=== PATIENT | female | born 1965 | race African-American/Black ===

== ENCOUNTER 2017-07-20 15:27 | Emergency (ER) | payer MEDICARE, BC ==
[~2017-07-20] VITALS: Ht 149.9 cm; Wt 112.9 kg
[~2017-07-20 15:27] MED LIST: ALPR0.254 PO; AMOX1TAB61 PO; ASPI-630 PO; BACL20TA PO; LANS30TA6 PO; OXYB5TAB7 PO; vitamin d
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
[2017-07-20 16:23] VITALS: BP 100/57
[2017-07-20] MEDS ORDERED: NEOMY/BACITR/POLYMYXIN OINT PACKET. TP ONE (16:30)
[2017-07-20] MEDS ORDERED: ACETAMINOPHEN 650 MG/20.3 ML SOLUTION. PEG ONE (16:30)
[2017-07-20] MEDS ORDERED: CEPHALEXIN 250 MG/5 ML ORAL.SUSP. PEG ONE (16:30)
[2017-07-20] MEDS ORDERED: CEPH250S30 PO (16:37)
== END 2017-07-20 18:00 | disposition home or self-care (01) ==
LOC: ER 15:27
DX: M79.642 Pain in left hand (principal); Z88.5 Allergy status to narcotic agent
CPT/HCPCS: 11730; 99283

== ENCOUNTER 2018-01-14 15:21 | Emergency (ER) | payer MEDICARE, BC | END 2018-01-14 16:18 | disposition home or self-care (01) | LOC: ER 15:21 | DX: K94.23 Gastrostomy malfunction (principal); Z88.5 Allergy status to narcotic agent | CPT/HCPCS: 43760; 99284-25 ==

== ENCOUNTER 2019-03-11 13:55 | Emergency (ER) | payer MEDICARE, BC, OTHER ==
[~2019-03-11] VITALS: Ht 152.4 cm; Wt 90.3 kg
[~2019-03-11 13:55] MED LIST changes: +ACET500T68 PO; +ACET650S PO; +ASPI81TA50 PO; +AZIT250T6 PO; +CEF; +CEPH250S30 PO; +CIPR250T30 PO; +DOCU100C28 PO; +FAMO-63 PO; +GUAI-108 PO; +HYOS0.1264 PO; +IBUP-1027 PO; +IPRA0.2S5 NEB; +LACT1CAP8 PO; +LIDO700A39 TP; +LORA10TA68 PO; +NAPR-514 PO; +POLY119P19 PO; +SCOP1PAT11 TD; +SENN-80 PO; +TIZA4TAB PO; +TRAM50TA PO; +VENTOLIN HFA18 GM INH
[2019-03-11 14:23] LABS: BILIRUBIN,URINE NEGATIVE (NEG); CLARITY,URINE CLEAR; COLOR,URINE YELLOW; NITRITE,URINE NEGATIVE (NEG); PH,URINE 7.5; PROTEIN,URINE 30 mg/dL (NEG-TRACE); UROBILINOGEN,URINE 0.2 mg/dL (0.2 mg/dL)
[2019-03-11 14:29] LABS: BACTERIA,URINE MANY /HPF (0-FEW); RBC,URINE 20-40 /HPF (0-2); SQUAMOUS EPITHELIAL CELL,UR OCC /LPF; WBC,URINE 20-40 /HPF (0-4)
[2019-03-11] MEDS ORDERED: CEPH250S30 PO (15:17)
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
[2019-03-11 15:21] VITALS: BP 106/63
== END 2019-03-11 15:30 | disposition home or self-care (01) ==
LOC: ER 13:55
DX: T83.511A Infection and inflammatory reaction due to indwelling urethral catheter, initial encounter (principal); N39.0 Urinary tract infection, site not specified; Z88.5 Allergy status to narcotic agent; Y84.6 Urinary catheterization as the cause of abnormal reaction of the patient, or of later complication, without mention of misadventure at the time of the procedure; Y92.89 Other specified places as the place of occurrence of the external cause
CPT/HCPCS: 51705; 81001; 87086; 87186; 99284-25; 99285-25

== ENCOUNTER 2019-06-12 07:27 | Inpatient (IN) | payer MEDICARE, BC, OTHER ==
[~2019-06-12] VITALS: Ht 152.4 cm; Wt 91.2 kg
[~2019-06-12 07:27] MED LIST changes: +LIDO700A21 TP; -LIDO700A39 TP; -TIZA4TAB PO; +TIZA4TAB2 PO
[2019-06-12] MEDS ORDERED: IV NORMAL SALINE 1000ML BAG 1,000 ML IV SCH (07:36)
[2019-06-12] MEDS ORDERED: IPRATRPIUM/ALBUTEROL 0.5/2.5MG 3 ML NEBU. NEB ONE (07:45)
[2019-06-12] MEDS ORDERED: ONDANSETRON PF 4 MG/2 ML VIAL. IV ONE (07:45)
[2019-06-12] MEDS ORDERED: methylPREDNISolone SOD SUCC PF 125 MG/2 ML VIAL. IV ONE (07:45)
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
--- NOTE | 2019-06-12 08:24 | RAD ---
PORTABLE CHEST 1V History: Vomiting, shortness of breath Comparison: October 11, 2018 Findings: Single view of the chest is submitted. Pericardial cardiac silhouette is unchanged. There is some patchy opacity of the left lung base although likely decreased. There is likely mild atelectasis right lung base. There are somewhat low lung volumes. There is no pneumothorax or significant dependent pleural fluid. Impression: 1. There is some patchy left base opacity although probably decreased, also mild right base atelectasis. Electronically signed by: Tang Banks MD (06/12/2019 8:21 AM) [id number]
--- NOTE | 2019-06-12 08:24 | EKG ---
[facility] [address] [place] [address] Test Date: 2019-06-12 Test Time: 07:34:44 Pat Name: ROSALBA MONTERO Department: Room: Gender: F [employer]: : 1965 Requested By: DUKE PRINCE Order Number: [id number] Reading MD: Azar Joel MD Measurements Intervals [place] Rate: 96 P: 38 TN: 160 QRS: -15 QRSD: 82 T: 15 QT: 344 QTc: 435 Interpretive Statements SINUS RHYTHM VENTRICULAR PREMATURE COMPLEX(ES) LAD Electronically Signed On 06-16-2019 9:53:28 CDT by Azar Joel MD
[2019-06-12 09:14] LABS: BASO % 0 % (0-3); EOS # 0.1 x10^3/uL (0.0-0.7); EOS % 1 % (0-3); HEMATOCRIT 42.2 % (36.0-47.0); HEMOGLOBIN 14.3 g/dL (12.0-15.5); LYMPH # 1.3 x10^3/uL (1.0-4.8); LYMPH % 16 % (24-48); MEAN CORPUSCULAR HEMOGLOBIN 30 pg (25-35); MEAN CORPUSCULAR HGB CONC 34 g/dL (31-37); MEAN CORPUSCULAR VOLUME 90 fL (79-100); MONO # 0.3 x10^3/uL (0.0-1.1); MONO % 4 % (0-9); NEUT # 6.2 x10^3/uL (1.8-7.7); NEUT % 78 % (31-73); PLATELET COUNT 249 x10^3/uL (140-400); RED BLOOD COUNT 4.71 x10^6/uL (3.50-5.40); RED CELL DISTRIBUTION WIDTH 16.6 % (11.5-14.5); WHITE BLOOD COUNT 7.9 x10^3/uL (4.0-11.0)
[2019-06-12] MEDS ORDERED: VANCOMYCIN 2 GM in IV NORMAL SALINE 500ML BAG 500 ML IV ONE (09:15)
[2019-06-12] MEDS ORDERED: PIPERACILLIN/TAZOBACTAM 3.375 GM in IV NORMAL SALINE 50ML 50 ML IV ONE (09:15)
[2019-06-12 09:24] LABS: CALCIUM 9.9 mg/dL (8.5-10.1); CREATININE 0.8 mg/dL (0.6-1.0); GFR 90.4; POTASSIUM 4.2 mmol/L (3.5-5.1)
[2019-06-12 09:25] LABS: PROTHROMBIN TIME PATIENT 12.3 SEC (11.7-14.0)
[2019-06-12 09:31] LABS: ALBUMIN 3.6 g/dL (3.4-5.0); ALBUMIN/GLOBULIN RATIO 0.8 (1.0-1.7); TOTAL BILIRUBIN 0.4 mg/dL (0.2-1.0); TOTAL PROTEIN 8.4 g/dL (6.4-8.2)
[2019-06-12 09:55] LABS: BILIRUBIN,URINE NEGATIVE (NEG); CLARITY,URINE CLOUDY; COLOR,URINE YELLOW; NITRITE,URINE NEGATIVE (NEG); PROTEIN,URINE 30 mg/dL (NEG-TRACE)
[2019-06-12 10:10] LABS: BACTERIA,URINE FEW /HPF (0-FEW); WBC,URINE TNTC /HPF (0-4)
[2019-06-12] MEDS ORDERED: IV NORMAL SALINE 1000ML BAG 1,000 ML IV ONE (11:00)
[2019-06-12 11:40] VITALS: BP 135/86
--- NOTE | 2019-06-12 12:07 | NUR ---
Patient received from ER per gayle. Patient with eyes open, nonverbal, does not follow simple command to open her mouth. Rolanda GRAVES states on arrival to room patient sounded "gurgly" and she did oral suction with small amount brown tinge fluid return approx. 30 cc. Patient HOB elevated 30 degrees and patient turnded to left side after cleansing and brief change for incontinence brown BM. Oxygen on 2 liters per NC. Side rails up times two, call light at hand, bed alarm set. Unable to obtain history from patient, will obtain from [facility] record. See assessment and admission.
[2019-06-12] MEDS ORDERED: PANT40GR PEG (13:08)
[2019-06-12] MEDS ORDERED: ONDA4TAB7 PEG (13:08)
[2019-06-12] MEDS ORDERED: GUAIFENESIN PEG (13:08)
[2019-06-12] MEDS ORDERED: GLYC1.5T4 PO (13:08)
[2019-06-12] MEDS ORDERED: SULF1TAB24 PO (13:08)
[2019-06-12] MEDS ORDERED: NYST15CR2 TP (13:08)
[2019-06-12] MEDS ORDERED: OXYB5TAB7 PEG (13:08)
[2019-06-12] MEDS ORDERED: ISOSOURCE PEG (13:26)
[2019-06-12] MEDS ORDERED: prostat PEG (13:26)
--- NOTE | 2019-06-12 14:15 | NUR ---
Patient nonverbal, patient history and medications obtained from [facility] transfer records, Dr. Perez notified of completion medication reconciliation. Patient moved to P500 bed per protocol.
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
[2019-06-12] MEDS: ENOXAPARIN 40 MG/0.4 ML SYRINGE. SQ SCH (14:34)
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
[2019-06-12] MEDS: PANTOPRAZOLE IV PUSH 40 MG VIAL. IVP SCH (14:54)
--- NOTE | 2019-06-12 15:23 | RAD ---
EXAM: Abdomen, single view. HISTORY: Vomiting. COMPARISON: 10/08/2018 FINDINGS: A frontal view of the abdomen is obtained. There is a gastrostomy tube overlying the left upper quadrant. There is gas and stool within the colon. There are prominent air-filled small bowel within the abdomen. No transition point is seen. There is a suspected calcified uterine fibroid or vascular calcification within the left hemipelvis. There is thoracolumbar scoliosis and degenerative change at the lower lumbar levels. IMPRESSION: Prominent air-filled small bowel, without a clear transition point to suggest obstruction. There is also gas and stool within the colon and rectal vault. Electronically signed by: Jane Curry MD (06/12/2019 3:20 PM) [facility]
[2019-06-12] MEDS ORDERED: ONDANSETRON PF 4 MG/2 ML VIAL. IV PRN (15:30)
[2019-06-12] MEDS ORDERED: PROCHLORPERAZINE 10 MG/2 ML VIAL. IV PRN (15:30)
--- NOTE | 2019-06-12 15:33 | NUR ---
This nurse was walking by pts room and heard her vomiting. Pt was cleaned up. Emesis was light brown in color and lots of mucus noted. Oral suction used. Pt positioned on her left side. Lungs sound congested. Spoke to Dr Reed and Dr Perez. Received orders for Compazine and Zofran as needed. Compazine given IV. Update given to staff nurse.
--- NOTE | 2019-06-12 15:35 | NUR ---
Patient with emesis while this RN was at lunch. Rocio GRAVES responded and suctioned patient, states clear fluid with small amount brown tinge, turned patient to side. HOB elevated 45 degrees and Rocio GRAVES notified Dr. Reed and Dr. Perez of episode. See orders. Continue cares and monitor.
[2019-06-12 15:36] VITALS: BP 125/77
[2019-06-12] MEDS ORDERED: PIP/TAZO PER PHARMACY MC PRN (17:15)
--- NOTE | 2019-06-12 17:32 | NUR ---
D/W Dr. Perez no further IVF after this order, no IV antibiotics, patient temp. 99.2 axillary. See nursing communication and orders.
[2019-06-12] MEDS: PIPERACILLIN/TAZOBACTAM 4.5 GM in IV NORMAL SALINE 100ML 100 ML IV SCH ×2 (17:52→23:23)
[2019-06-12 19:44] VITALS: BP 129/84
[2019-06-12] MEDS: AMINO AC 3%/ELECTROLYTE/GLYCER 1,000 ML IV SCH (23:25)
[2019-06-12 23:59] VITALS: BP 133/92
[2019-06-13 04:32] LABS: HEMATOCRIT 36.4 % (36.0-47.0); HEMOGLOBIN 11.8 g/dL (12.0-15.5); RED BLOOD COUNT 3.97 x10^6/uL (3.50-5.40); RED CELL DISTRIBUTION WIDTH 16.9 % (11.5-14.5); WHITE BLOOD COUNT 11.3 x10^3/uL (4.0-11.0)
[2019-06-13 04:49] VITALS: BP 116/80
[2019-06-13 04:59] LABS: ALBUMIN 2.7 g/dL (3.4-5.0); ALBUMIN/GLOBULIN RATIO 0.5 (1.0-1.7); CALCIUM 8.8 mg/dL (8.5-10.1); CREATININE 0.7 mg/dL (0.6-1.0); GFR 105.5; POTASSIUM 4.3 mmol/L (3.5-5.1); TOTAL BILIRUBIN 0.6 mg/dL (0.2-1.0); TOTAL PROTEIN 7.7 g/dL (6.4-8.2)
[2019-06-13] MEDS: PIPERACILLIN/TAZOBACTAM 4.5 GM in IV NORMAL SALINE 100ML 100 ML IV SCH ×4 (06:20→23:32)
[2019-06-13 07:30] VITALS: BP 129/70
--- NOTE | 2019-06-13 08:15 | RAD ---
PORTABLE CHEST 1V History: Pneumonia Comparison: June 12, 2019 Findings: Single view of the chest is submitted. Pericardial cardiac silhouette is unchanged. There is residual left base opacity, some increased linear opacity more laterally. There is no pneumothorax. There is no significant dependent pleural fluid. Impression: 1. There is residual, somewhat increased left base opacity which may be due to atelectasis/infiltrate. Electronically signed by: Tang Banks MD (06/13/2019 8:12 AM) [id number]
[2019-06-13] MEDS: AMINO AC 3%/ELECTROLYTE/GLYCER 1,000 ML IV SCH ×2 (08:49→17:14)
[2019-06-13] MEDS: PANTOPRAZOLE IV PUSH 40 MG VIAL. IVP SCH (08:49)
--- NOTE | 2019-06-13 09:54 | PDOC ---
PULMONARY PROGRESS NOTES Subjective had more emesis yesterday Vitals Vital Signs Date Time Temp Pulse Resp B/P (MAP) Pulse Ox O2 Delivery O2 Flow Rate FiO2 06/13/19 08:00 Nasal Cannula 2.0 06/13/19 07:30 98.4 89 20 129/70 (89) 97 98.4 General: Alert, No acute distress Lungs: Other (few rhonchi) Cardiovascular: S1, S2 Abdomen: Soft, Non-tender Neuro Exam: Alert Extremities: No Edema Skin: Warm Labs Laboratory Tests Test 06/12/19 08:50 06/12/19 09:45 06/13/19 03:40 White Blood Count 7.9 x10^3/uL (4.0-11.0) 11.3 x10^3/uL (4.0-11.0) Red Blood Count 4.71 x10^6/uL (3.50-5.40) 3.97 x10^6/uL (3.50-5.40) Hemoglobin 14.3 g/dL (12.0-15.5) 11.8 g/dL (12.0-15.5) Hematocrit 42.2 % (36.0-47.0) 36.4 % (36.0-47.0) Mean Corpuscular Volume 90 fL (79-100) 92 fL (79-100) Mean Corpuscular Hemoglobin 30 pg (25-35) 30 pg (25-35) Mean Corpuscular Hemoglobin Concent 34 g/dL (31-37) 32 g/dL (31-37) Red Cell Distribution Width 16.6 % (11.5-14.5) 16.9 % (11.5-14.5) Platelet Count 249 x10^3/uL (140-400) 207 x10^3/uL (140-400) Neutrophils (%) (Auto) 78 % (31-73) Lymphocytes (%) (Auto) 16 % (24-48) Monocytes (%) (Auto) 4 % (0-9) Eosinophils (%) (Auto) 1 % (0-3) Basophils (%) (Auto) 0 % (0-3) Neutrophils # (Auto) 6.2 x10^3/uL (1.8-7.7) Lymphocytes # (Auto) 1.3 x10^3/uL (1.0-4.8) Monocytes # (Auto) 0.3 x10^3/uL (0.0-1.1) Eosinophils # (Auto) 0.1 x10^3/uL (0.0-0.7) Basophils # (Auto) 0.0 x10^3/uL (0.0-0.2) Prothrombin Time 12.3 SEC (11.7-14.0) Prothromb Time International Ratio 0.9 (0.8-1.1) Sodium Level 141 mmol/L (136-145) 142 mmol/L (136-145) Potassium Level 4.2 mmol/L (3.5-5.1) 4.3 mmol/L (3.5-5.1) Chloride Level 103 mmol/L (98-107) 108 mmol/L (98-107) Carbon Dioxide Level 25 mmol/L (21-32) 23 mmol/L (21-32) Anion Gap 13 (6-14) 11 (6-14) Blood Urea Nitrogen 19 mg/dL (7-20) 17 mg/dL (7-20) Creatinine 0.8 mg/dL (0.6-1.0) 0.7 mg/dL (0.6-1.0) Estimated GFR (Cockcroft-Gault) 90.4 105.5 BUN/Creatinine Ratio 24 (6-20) 24 (6-20) Glucose Level 96 mg/dL (70-99) 100 mg/dL (70-99) Lactic Acid Level 1.5 mmol/L (0.4-2.0) Calcium Level 9.9 mg/dL (8.5-10.1) 8.8 mg/dL (8.5-10.1) Total Bilirubin 0.4 mg/dL (0.2-1.0) 0.6 mg/dL (0.2-1.0) Aspartate Amino Transf (AST/SGOT) 23 U/L (15-37) 23 U/L (15-37) Alanine Aminotransferase (ALT/SGPT) 25 U/L (14-59) 22 U/L (14-59) Alkaline Phosphatase 96 U/L (46-116) 82 U/L (46-116) Creatine Kinase 117 U/L (26-192) Troponin I Quantitative < 0.017 ng/mL (0.000-0.055) YK-Wsn-O-Type Natriuretic Peptide 79 pg/mL (0-124) Total Protein 8.4 g/dL (6.4-8.2) 7.7 g/dL (6.4-8.2) Albumin 3.6 g/dL (3.4-5.0) 2.7 g/dL (3.4-5.0) Albumin/Globulin Ratio 0.8 (1.0-1.7) 0.5 (1.0-1.7) Lipase 94 U/L (73-393) Urine Collection Type U cath Urine Color Yellow Urine Clarity Cloudy Urine pH 8.0 Urine Specific [place] 1.015 Urine Protein 30 mg/dL (NEG-TRACE) Urine Glucose (UA) Negative mg/dL (NEG) Urine Ketones (Stick) Trace mg/dL (NEG) Urine Blood Moderate (NEG) Urine Nitrite Negative (NEG) Urine Bilirubin Negative (NEG) Urine Urobilinogen Dipstick 1.0 mg/dL (0.2 mg/dL) Urine Leukocyte Esterase Large (NEG) Urine RBC 3-5 /HPF (0-2) Urine WBC Tntc /HPF (0-4) Urine Squamous Epithelial Cells None /LPF Urine Bacteria Few /HPF (0-FEW) Laboratory Tests Test 06/13/19 03:40 White Blood Count 11.3 x10^3/uL (4.0-11.0) Red Blood Count 3.97 x10^6/uL (3.50-5.40) Hemoglobin 11.8 g/dL (12.0-15.5) Hematocrit 36.4 % (36.0-47.0) Mean Corpuscular Volume 92 fL (79-100) Mean Corpuscular Hemoglobin 30 pg (25-35) Mean Corpuscular Hemoglobin Concent 32 g/dL (31-37) Red Cell Distribution Width 16.9 % (11.5-14.5) Platelet Count 207 x10^3/uL (140-400) Sodium Level 142 mmol/L (136-145) Potassium Level 4.3 mmol/L (3.5-5.1) Chloride Level 108 mmol/L (98-107) Carbon Dioxide Level 23 mmol/L (21-32) Anion Gap 11 (6-14) Blood Urea Nitrogen 17 mg/dL (7-20) Creatinine 0.7 mg/dL (0.6-1.0) Estimated GFR (Cockcroft-Gault) 105.5 BUN/Creatinine Ratio 24 (6-20) Glucose Level 100 mg/dL (70-99) Calcium Level 8.8 mg/dL (8.5-10.1) Total Bilirubin 0.6 mg/dL (0.2-1.0) Aspartate Amino Transf (AST/SGOT) 23 U/L (15-37) Alanine Aminotransferase (ALT/SGPT) 22 U/L (14-59) Alkaline Phosphatase 82 U/L (46-116) Total Protein 7.7 g/dL (6.4-8.2) Albumin 2.7 g/dL (3.4-5.0) Albumin/Globulin Ratio 0.5 (1.0-1.7) Medications Active Scripts Medications Dose Route/Sig Max Daily Dose Days Date Category Dose Instructions [isosource 1.5] PEG 06/12/19 Reported Isosource 1.5 ml 40ml/hr via pump continuous/ flush peg with 120 ml H20 four times a day [prostat] PEG DAILY 06/12/19 Reported Zofran (Ondansetron Hcl) 4 Mg Tablet 1 Tab PEG Q6HRS PRN 06/12/19 Reported Protonix Packet (Pantoprazole Sodium) 40 Mg Granpkt.dr 20 Mg PEG DAILY 06/12/19 Reported Oxybutynin Chloride 5 Mg Tablet 5 Mg PEG BID 06/12/19 Reported Nystatin-Triamcinolone Cream (Nystatin/Triamcin) 15 Gm Cream..g. 1 Sis TP Q8H PRN 06/12/19 Reported apply to affected area topically every 8 hours as needed for yeast suprapubic ceja site and pannus [guaifenesin liquid] 20 ml Liq PEG Q12HR PRN 06/12/19 Reported 100mg per 5 ml Glycopyrrolate 1.5 Mg Tablet 1 Mg PO QID 06/12/19 Reported Bactrim Ds Tablet (Sulfamethoxazole/Trimethoprim) 1 Each Tablet 1 Tab PO BID 06/12/19 Reported started 06/06/19 Tramadol Hcl 50 Mg Tablet 50 Mg PO Q6HRS PRN 09/30/18 Reported Tizanidine Hcl 4 Mg Tablet 6 Mg PO QID 09/30/18 Reported Senna (Sennosides) 8.6 Mg Tablet 8.6 Mg PO HS 09/30/18 Reported two tablets at bedtime, hold for loose stool Ipratropium [place] 0.2 Mg/1 Ml Solution 1 Vial NEB Q4HRS PRN 09/30/18 Reported Glycolax (Polyethylene Glycol 3350) 119 Gm Powder 17 Gm PO BID 09/30/18 Reported hold for loose stool Claritin (Loratadine) 10 Mg Tablet 1 Tab PO DAILY 09/30/18 Reported Baclofen 20 Mg Tablet 1 Tab PO QID 09/30/18 Reported Aspir-Low (Aspirin) 81 Mg Tablet.dr 1 Tab PO DAILY 09/30/18 Reported Acetaminophen 500 Mg Tablet 1 Tab PO Q4HRS PRN 09/30/18 Reported Impression . 1. The patient with mild hypoxia and emesis. Likely aspiration pneumonia 2. Advanced multiple sclerosis. 3. Dysphagia, on PEG tube, probably malfunctioning.emesis Plan . 1. Continue with present oxygen to keep saturation 92% and above. 2. Broad-spectrum antibiotic was initiated. 3. Monitor for fever . followup chest x-ray with increase LLL infiltrate 4. Deep vein thrombosis prophylaxis. 5. keep NPO 6. We will follow along with you. Discussed with RN. GI has been consulted for PEG replacement. BELÉN MAURER MD Jun 13, 2019 09:53
--- NOTE | 2019-06-13 10:32 | PDOC ---
[employer] PROGRESS NOTE Chief Complaint Chief Complaint Aspiration Pneumonia Nausea/Vomiting Advanced MS Chronic PEG line History of Present Illness History of Present Illness 06/13/19 Pt seen/examined at bedside and resting comfortably PEG line appears to be old and has not been changed in a while Chart Reviewed DW RN Vitals/I&O Vitals/I&O: Vital Signs Date Time Temp Pulse Resp B/P (MAP) Pulse Ox O2 Delivery O2 Flow Rate FiO2 06/13/19 08:00 Nasal Cannula 2.0 06/13/19 07:30 98.4 89 20 129/70 (89) 97 98.4 I & O 06/12/19 06/12/19 06/13/19 15:00 23:00 07:00 Intake Total 300 ml 0 ml Output Total 400 ml 450 ml Balance 300 ml -400 ml -450 ml Physical Exam Physical Exam: VITALS: Within normal limits and are stable. GENERAL: No apparent distress. Alert and oriented. HEENT: Head is normocephalic, atraumatic, pupils were equally round and reactive to light and accommodation. NECK: Supple, no JVD, no thyromegaly was noted. LUNGS: Clear to auscultation in all lung alva without rhonchi or wheezing. HEART: RRR, S1, S2 present. Peripheral pulses intact, no obvious murmurs were noted. ABDOMEN: She has a PEG tube appears to be quite old and I am going to consult GI to replace it. EXTREMITIES: Upper extremities are contracted. NEUROLOGIC: She cannot move, she cannot talk, and she does nod. PSYCHIATRIC: Normal affect, normal mood. Stable. SKIN: No ulcerations or rashes, good skin turgor, no jaundice. VASCULAR: Good capillary refill, neurovascular bundle appears to be intact. Labs Labs: Laboratory Tests Test 06/13/19 03:40 White Blood Count 11.3 x10^3/uL (4.0-11.0) Red Blood Count 3.97 x10^6/uL (3.50-5.40) Hemoglobin 11.8 g/dL (12.0-15.5) Hematocrit 36.4 % (36.0-47.0) Mean Corpuscular Volume 92 fL (79-100) Mean Corpuscular Hemoglobin 30 pg (25-35) Mean Corpuscular Hemoglobin Concent 32 g/dL (31-37) Red Cell Distribution Width 16.9 % (11.5-14.5) Platelet Count 207 x10^3/uL (140-400) Sodium Level 142 mmol/L (136-145) Potassium Level 4.3 mmol/L (3.5-5.1) Chloride Level 108 mmol/L (98-107) Carbon Dioxide Level 23 mmol/L (21-32) Anion Gap 11 (6-14) Blood Urea Nitrogen 17 mg/dL (7-20) Creatinine 0.7 mg/dL (0.6-1.0) Estimated GFR (Cockcroft-Gault) 105.5 BUN/Creatinine Ratio 24 (6-20) Glucose Level 100 mg/dL (70-99) Calcium Level 8.8 mg/dL (8.5-10.1) Total Bilirubin 0.6 mg/dL (0.2-1.0) Aspartate Amino Transf (AST/SGOT) 23 U/L (15-37) Alanine Aminotransferase (ALT/SGPT) 22 U/L (14-59) Alkaline Phosphatase 82 U/L (46-116) Total Protein 7.7 g/dL (6.4-8.2) Albumin 2.7 g/dL (3.4-5.0) Albumin/Globulin Ratio 0.5 (1.0-1.7) Review of Systems Review of Systems: no co SOB co weakness Assessment and Plan Assessmemt and Plan Problems Medical Problems: (1) Aspiration pneumonia Status: Acute (2) Multiple sclerosis Status: Acute (3) Muscle contracture Status: Acute (4) Nausea and vomiting Status: Acute (5) UTI (urinary tract infection) due to urinary indwelling Kern catheter Status: Acute Assessment: Aspiration Pneumonia Nausea/Vomiting Advanced MS Chronic PEG line Plan: Cardiac monitoring IV Abx, PPN PRN anti-emetics DuoNeb O2 per NC DVT prophylaxis GI consult pending Comment Review of Relevant I have reviewed the following items jey (where applicable) has been applied. Medications: Current Medications Medications (Trade) Dose Ordered Sig/Jayna Route PRN Reason Start Time Stop Time Status Last Admin Dose Admin Sodium Chloride 1,000 ml @ 125 mls/hr 1X ONCE IV 06/12/19 11:00 06/12/19 18:59 DC 06/12/19 11:55 Enoxaparin Sodium (Lovenox 40mg Syringe) 40 mg Q24H SQ 06/12/19 15:00 06/12/19 14:34 Pantoprazole Sodium (PROTONIX VIAL for IV PUSH) 40 mg DAILYAC IVP 06/12/19 15:00 06/13/19 08:49 Prochlorperazine Edisylate (Compazine) 10 mg PRN Q8HRS PRN IV NAUSEA/VOMITING 06/12/19 15:30 06/12/19 15:28 Amino Acids/ Glycerin/ Electrolytes 1,000 ml @ 75 mls/hr [id number] IV 06/12/19 17:15 06/13/19 08:49 Piperacillin Sod/ Tazobactam Sod 4.5 gm/Sodium Chloride 100 ml @ 200 mls/hr Q6HRS IV 06/12/19 18:00 06/13/19 06:20 LONDON VINES III DO Jun 13, 2019 10:32
[2019-06-13 11:24] VITALS: BP 152/89
--- NOTE | 2019-06-13 11:37 | PDOC ---
Subjective: Subjective: Denies pain, indicates breathing okay, denies nausea. I asked about constipation - she laughed. Objective: Objective: Reviewed w/ nurse - no vomiting since yesterday. Vital Signs: Vital Signs Date Time Temp Pulse Resp B/P (MAP) Pulse Ox O2 Delivery O2 Flow Rate FiO2 06/13/19 11:24 98.0 95 20 152/89 (110) 93 Nasal Cannula 2.0 98.0 Labs: Laboratory Tests Test 06/13/19 03:40 White Blood Count 11.3 x10^3/uL Red Blood Count 3.97 x10^6/uL Hemoglobin 11.8 g/dL Hematocrit 36.4 % Mean Corpuscular Volume 92 fL Mean Corpuscular Hemoglobin 30 pg Mean Corpuscular Hemoglobin Concent 32 g/dL Red Cell Distribution Width 16.9 % Platelet Count 207 x10^3/uL Sodium Level 142 mmol/L Potassium Level 4.3 mmol/L Chloride Level 108 mmol/L Carbon Dioxide Level 23 mmol/L Anion Gap 11 Blood Urea Nitrogen 17 mg/dL Creatinine 0.7 mg/dL Estimated GFR (Cockcroft-Gault) 105.5 BUN/Creatinine Ratio 24 Glucose Level 100 mg/dL Calcium Level 8.8 mg/dL Total Bilirubin 0.6 mg/dL Aspartate Amino Transf (AST/SGOT) 23 U/L Alanine Aminotransferase (ALT/SGPT) 22 U/L Alkaline Phosphatase 82 U/L Total Protein 7.7 g/dL Albumin 2.7 g/dL Albumin/Globulin Ratio 0.5 BLOOD CULTURE Preliminary NO GROWTH AFTER 1 DAY Imaging: CXR 06/13 Impression: 1. There is residual, somewhat increased left base opacity which may be due to atelectasis/infiltrate. KUB 06/12 IMPRESSION: Prominent air-filled small bowel, without a clear transition point to suggest obstruction. There is also gas and stool within the colon and rectal vault. PE: GEN: NAD - looks better today LUNGS: rhonchi, NC 2L HEART: RRR ABD: BS+, soft, non-tender, PEG in place NEURO/PSYCH: awake and alert, non-verbal A/P: Vomiting - resolved? Suspected aspiration pneumonia, UTI MS w/ h/o dysphagia/PEG in place -- No vomiting overnight or this morning. ?try to feed - will review w/ Dr. Judah jay. URPERT WILSON Jun 13, 2019 11:37
[2019-06-13] MEDS: ENOXAPARIN 40 MG/0.4 ML SYRINGE. SQ SCH (12:21)
[2019-06-13 15:13] VITALS: BP 124/76
--- NOTE | 2019-06-13 15:44 | NUR ---
SW following pt for dc planning. JAKUB confirmed with Leonor at [facility], pt is LTC resident and plan of return upon dc. Will continue to follow.
[2019-06-13 19:52] VITALS: BP 137/95
[2019-06-13 22:54] VITALS: BP 170/89
[2019-06-14 03:23] VITALS: BP 120/77
[2019-06-14] MEDS: PIPERACILLIN/TAZOBACTAM 4.5 GM in IV NORMAL SALINE 100ML 100 ML IV SCH ×3 (05:15→18:07)
[2019-06-14 07:00] VITALS: BP 128/82
[2019-06-14] MEDS: PANTOPRAZOLE IV PUSH 40 MG VIAL. IVP SCH (08:05)
--- NOTE | 2019-06-14 09:02 | PDOC ---
Objective: Objective: Tmax 100.7. On PPN. No vomiting per nurse. Vital Signs: Vital Signs Date Time Temp Pulse Resp B/P (MAP) Pulse Ox O2 Delivery O2 Flow Rate FiO2 06/14/19 03:23 99.4 98 120/77 (91) 96 Nasal Cannula 2.0 99.4 06/13/19 22:54 20 Labs: BLOOD CULTURE Final SMALL GRAM POSITIVE COCCI IN CLUSTERS, IN THE ANAEROBIC BOTTLE(1 OF 4), TWO SETS DRAWN. PE: GEN: NAD LUNGS: coughing, NC HEART: midlly tachycardic ABD: soft, non-tender, PEG NEURO/PSYCH: awake and alert - attempts to speak A/P: Aspiration pneumonia, UTI, GPC bacteremia MS w/ PEG in place -- ?try tube feeds - will review w/ RUPERT Tillman Jun 14, 2019 09:02
[2019-06-14] MEDS: AMINO AC 3%/ELECTROLYTE/GLYCER 1,000 ML IV SCH ×2 (09:19→23:15)
--- NOTE | 2019-06-14 09:25 | PDOC ---
PULMONARY PROGRESS NOTES Subjective no soa Vitals Vital Signs Date Time Temp Pulse Resp B/P (MAP) Pulse Ox O2 Delivery O2 Flow Rate FiO2 06/14/19 07:00 98.8 105 18 128/82 (97) 97 Nasal Cannula 2.0 98.8 General: Alert, No acute distress Cardiovascular: S1, S2 Abdomen: Soft, Non-tender Neuro Exam: Alert Extremities: No Edema Skin: Warm Labs Laboratory Tests Test 06/12/19 09:45 06/13/19 03:40 Urine Collection Type U cath Urine Color Yellow Urine Clarity Cloudy Urine pH 8.0 Urine Specific Andrews 1.015 Urine Protein 30 mg/dL (NEG-TRACE) Urine Glucose (UA) Negative mg/dL (NEG) Urine Ketones (Stick) Trace mg/dL (NEG) Urine Blood Moderate (NEG) Urine Nitrite Negative (NEG) Urine Bilirubin Negative (NEG) Urine Urobilinogen Dipstick 1.0 mg/dL (0.2 mg/dL) Urine Leukocyte Esterase Large (NEG) Urine RBC 3-5 /HPF (0-2) Urine WBC Tntc /HPF (0-4) Urine Squamous Epithelial Cells None /LPF Urine Bacteria Few /HPF (0-FEW) White Blood Count 11.3 x10^3/uL (4.0-11.0) Red Blood Count 3.97 x10^6/uL (3.50-5.40) Hemoglobin 11.8 g/dL (12.0-15.5) Hematocrit 36.4 % (36.0-47.0) Mean Corpuscular Volume 92 fL (79-100) Mean Corpuscular Hemoglobin 30 pg (25-35) Mean Corpuscular Hemoglobin Concent 32 g/dL (31-37) Red Cell Distribution Width 16.9 % (11.5-14.5) Platelet Count 207 x10^3/uL (140-400) Sodium Level 142 mmol/L (136-145) Potassium Level 4.3 mmol/L (3.5-5.1) Chloride Level 108 mmol/L (98-107) Carbon Dioxide Level 23 mmol/L (21-32) Anion Gap 11 (6-14) Blood Urea Nitrogen 17 mg/dL (7-20) Creatinine 0.7 mg/dL (0.6-1.0) Estimated GFR (Cockcroft-Gault) 105.5 BUN/Creatinine Ratio 24 (6-20) Glucose Level 100 mg/dL (70-99) Calcium Level 8.8 mg/dL (8.5-10.1) Total Bilirubin 0.6 mg/dL (0.2-1.0) Aspartate Amino Transf (AST/SGOT) 23 U/L (15-37) Alanine Aminotransferase (ALT/SGPT) 22 U/L (14-59) Alkaline Phosphatase 82 U/L (46-116) Total Protein 7.7 g/dL (6.4-8.2) Albumin 2.7 g/dL (3.4-5.0) Albumin/Globulin Ratio 0.5 (1.0-1.7) Medications Active Scripts Medications Dose Route/Sig Max Daily Dose Days Date Category Dose Instructions [isosource 1.5] PEG 06/12/19 Reported Isosource 1.5 ml 40ml/hr via pump continuous/ flush peg with 120 ml H20 four times a day [prostat] PEG DAILY 06/12/19 Reported Zofran (Ondansetron Hcl) 4 Mg Tablet 1 Tab PEG Q6HRS PRN 06/12/19 Reported Protonix Packet (Pantoprazole Sodium) 40 Mg Granpkt.dr 20 Mg PEG DAILY 06/12/19 Reported Oxybutynin Chloride 5 Mg Tablet 5 Mg PEG BID 06/12/19 Reported Nystatin-Triamcinolone Cream (Nystatin/Triamcin) 15 Gm Cream..g. 1 Sis TP Q8H PRN 06/12/19 Reported apply to affected area topically every 8 hours as needed for yeast suprapubic ceja site and pannus [guaifenesin liquid] 20 ml Liq PEG Q12HR PRN 06/12/19 Reported 100mg per 5 ml Glycopyrrolate 1.5 Mg Tablet 1 Mg PO QID 06/12/19 Reported Bactrim Ds Tablet (Sulfamethoxazole/Trimethoprim) 1 Each Tablet 1 Tab PO BID 06/12/19 Reported started 06/06/19 Tramadol Hcl 50 Mg Tablet 50 Mg PO Q6HRS PRN 09/30/18 Reported Tizanidine Hcl 4 Mg Tablet 6 Mg PO QID 09/30/18 Reported Senna (Sennosides) 8.6 Mg Tablet 8.6 Mg PO HS 12/7/18 Reported two tablets at bedtime, hold for loose stool Ipratropium [place] 0.2 Mg/1 Ml Solution 1 Vial NEB Q4HRS PRN 09/30/18 Reported Glycolax (Polyethylene Glycol 3350) 119 Gm Powder 17 Gm PO BID 09/30/18 Reported hold for loose stool Claritin (Loratadine) 10 Mg Tablet 1 Tab PO DAILY 09/30/18 Reported Baclofen 20 Mg Tablet 1 Tab PO QID 09/30/18 Reported Aspir-Low (Aspirin) 81 Mg Tablet.dr 1 Tab PO DAILY 09/30/18 Reported Acetaminophen 500 Mg Tablet 1 Tab PO Q4HRS PRN 09/30/18 Reported Impression . 1. The patient with mild hypoxia and emesis. Likely aspiration pneumonia 2. Advanced multiple sclerosis. 3. Dysphagia, on PEG tube, probably malfunctioning.emesis Plan . 1. Continue with present oxygen to keep saturation 92% and above. 2. Broad-spectrum antibiotic 3. Monitor for fever . followup chest x-ray with increase LLL infiltrate 4. Deep vein thrombosis prophylaxis. 5. keep NPO 6. We will follow along with you. Discussed with RN. GI rec for PEG replacement. BELÉN MAURER MD Jun 14, 2019 09:25
[2019-06-14 11:00] VITALS: BP 134/99
--- NOTE | 2019-06-14 13:51 | PDOC ---
[facility] [facility] PROGRESS NOTE Chief Complaint Chief Complaint Aspiration Pneumonia Nausea/Vomiting Advanced MS Chronic PEG line History of Present Illness History of Present Illness 06/14/19 Pt seen and examined at bedside resting comfortably Pt appears at baseline PEG line still maintained and appears old and needing changed LILIYA Pulm who cleared pt for PEG change; LILIYA GI that pt is cleared for PEG change LILIYA RN 06/13/19 Pt seen/examined at bedside and resting comfortably PEG line appears to be old and has not been changed in a while Chart Reviewed DW RN Vitals/I&O Vitals/I&O: Vital Signs Date Time Temp Pulse Resp B/P (MAP) Pulse Ox O2 Delivery O2 Flow Rate FiO2 06/14/19 11:00 98.7 109 20 134/99 (111) 97 Nasal Cannula 2.0 98.7 I & O 06/13/19 06/13/19 06/14/19 15:00 23:00 07:00 Intake Total 0 ml 0 ml 1800 ml Output Total 700 ml 950 ml Balance -700 ml 0 ml 850 ml Physical Exam Physical Exam: VITALS: Within normal limits and are stable. GENERAL: No apparent distress. Alert and oriented. HEENT: Head is normocephalic, atraumatic, pupils were equally round and reactive to light and accommodation. NECK: Supple, no JVD, no thyromegaly was noted. LUNGS: Clear to auscultation in all lung alva without rhonchi or wheezing. HEART: RRR, S1, S2 present. Peripheral pulses intact, no obvious murmurs were noted. ABDOMEN: She has a PEG tube appears to be quite old and I am going to consult GI to replace it. EXTREMITIES: Upper extremities are contracted. NEUROLOGIC: She cannot move, she cannot talk, and she does nod. PSYCHIATRIC: Normal affect, normal mood. Stable. SKIN: No ulcerations or rashes, good skin turgor, no jaundice. VASCULAR: Good capillary refill, neurovascular bundle appears to be intact. General: No acute distress Heart: Normal S1 Lungs: Clear Abdomen: Normal bowel sounds, Soft, No tenderness Extremities: No clubbing, No cyanosis Skin: No rashes, No significant lesion Review of Systems Review of Systems: Denies headache Denies vision change Assessment and Plan Assessmemt and Plan Problems Medical Problems: (1) Aspiration pneumonia Status: Acute (2) Multiple sclerosis Status: Acute (3) Muscle contracture Status: Acute (4) Nausea and vomiting Status: Acute (5) UTI (urinary tract infection) due to urinary indwelling Kern catheter Status: Acute Assessment: Aspiration Pneumonia Nausea/Vomiting Advanced MS Chronic PEG line Plan: Awaiting new PEG, cleared by sub-specialties PPN Cardiac monitoring IV Abx, PRN anti-emetics DuoNeb O2 per NC DVT prophylaxis GI consult pending Discharge s/p PEG replacement Comment Review of Relevant I have reviewed the following items jey (where applicable) has been applied. LONDON VINES III DO Jun 14, 2019 13:51
--- NOTE | 2019-06-14 14:47 | NUR ---
Wound Care pt seen for wound care consultation re: multiple wounds. Pt has a small area of intertrigo on L lateral pannus, area cleaned and recommendation of Nystatin powder BID, left KRUNAL. Pt has a Stage II pressure ulcer on RLQ suprapubic site at 9:00, appears to be d/t suprapubic tubing. Area cleaned, wound dressed with Hydrofera blue ring, then covered with a foam dressing cut to fit, recommendation of changing every 3-4 days. Pt is very contracted on extremities and hands. Pt's fingers and fingernails are digging into her palms, barely able to release fingers to clean and assess palms, areas are moist and yeasty between fingers and pt has a Stage II pressure ulcer on R palm from fingernail digging into skin, area cleaned, measured and photographed. After cleaning and drying, slid a piece of dry Aquacel AG into hand to wick away moisture and for padding, also recommend Nystatin powder between fingers and into palms BID. Pt was incontinent of stool, area cleaned, buttocks areas clear, pt has healed areas on bilateral ischium. Stat lock reapplied for catheter security. Repositioned pt onto R upright side with wedge and pillows, call light in reach. POC discussed with STAR Abernathy who was at bedside throughout.
[2019-06-14 15:00] VITALS: BP 152/100
[2019-06-14] MEDS: NYSTATIN TOPICAL POWDER 15GM BOTTLE. TP SCH ×2 (16:26→20:21)
[2019-06-14] MEDS: ENOXAPARIN 40 MG/0.4 ML SYRINGE. SQ SCH (16:26)
[2019-06-14 19:36] VITALS: BP 137/84
--- NOTE | 2019-06-14 21:14 | NUR ---
CHG bath given on day shift 06/14 per STAR Abernathy. Unknown how many days CHG bath has been given. Addendum: 06/14/19 at 2116 by AMY ANGELO RN Amended: Links added.
[2019-06-14 23:01] VITALS: BP 135/77
[2019-06-15] MEDS: PIPERACILLIN/TAZOBACTAM 4.5 GM in IV NORMAL SALINE 100ML 100 ML IV SCH ×4 (00:12→18:15)
[2019-06-15 03:55] VITALS: BP 162/103
[2019-06-15] MEDS ORDERED: IV RINGERS,LACTATED 1000ML 1,000 ML IV ONE (06:45)
[2019-06-15 07:05] VITALS: BP 150/91
[2019-06-15] MEDS: NYSTATIN TOPICAL POWDER 15GM BOTTLE. TP SCH ×2 (08:19→20:26)
[2019-06-15] MEDS: PANTOPRAZOLE IV PUSH 40 MG VIAL. IVP SCH (08:19)
--- NOTE | 2019-06-15 10:46 | PDOC ---
[facility] [facility] PROGRESS NOTE Chief Complaint Chief Complaint Aspiration Pneumonia Nausea/Vomiting Advanced MS Chronic PEG line History of Present Illness History of Present Illness 06/15/19 Pt seen and examined at bedside resting comfortably Pt appears to be at baseline PEG line will be replaced at 1300 today LILIYA RN 06/14/19 Pt seen and examined at bedside resting comfortably Pt appears at baseline PEG line still maintained and appears old and needing changed LILIYA Pulm who cleared pt for PEG change; LILIYA GI that pt is cleared for PEG change LILIYA RN 06/13/19 Pt seen/examined at bedside and resting comfortably PEG line appears to be old and has not been changed in a while Chart Reviewed LILIYA RN Vitals/I&O Vitals/I&O: Vital Signs Date Time Temp Pulse Resp B/P (MAP) Pulse Ox O2 Delivery O2 Flow Rate FiO2 06/15/19 08:00 Nasal Cannula 2.0 06/15/19 07:05 98.9 98 20 150/91 (110) 96 98.9 I & O 06/14/19 06/14/19 06/15/19 14:59 22:59 06:59 Intake Total 0 ml 1528 ml Output Total 350 ml 550 ml 650 ml Balance -350 ml -550 ml 878 ml Physical Exam Physical Exam: VITALS: Within normal limits and are stable. GENERAL: No apparent distress. Alert and oriented. HEENT: Head is normocephalic, atraumatic, pupils were equally round and reactive to light and accommodation. NECK: Supple, no JVD, no thyromegaly was noted. LUNGS: Clear to auscultation in all lung alva without rhonchi or wheezing. HEART: RRR, S1, S2 present. Peripheral pulses intact, no obvious murmurs were noted. ABDOMEN: She has a PEG tube appears to be quite old and I am going to consult GI to replace it. EXTREMITIES: Upper extremities are contracted. NEUROLOGIC: She cannot move, she cannot talk, and she does nod. PSYCHIATRIC: Normal affect, normal mood. Stable. SKIN: No ulcerations or rashes, good skin turgor, no jaundice. VASCULAR: Good capillary refill, neurovascular bundle appears to be intact. General: No acute distress Heart: Normal S1 Lungs: Clear Abdomen: Normal bowel sounds, Soft, No tenderness Extremities: No clubbing, No cyanosis Skin: No rashes, No significant lesion Review of Systems Review of Systems: no co CP no co SOB Assessment and Plan Assessmemt and Plan Problems Medical Problems: (1) Aspiration pneumonia Status: Acute (2) Multiple sclerosis Status: Acute (3) Muscle contracture Status: Acute (4) Nausea and vomiting Status: Acute (5) UTI (urinary tract infection) due to urinary indwelling Kern catheter Status: Acute Assessment: Aspiration Pneumonia Nausea/Vomiting Advanced MS Chronic PEG line Plan: Awaiting new PEG line placement today PPN IV Abx PPN DVT prophylaxis Discharge if cleared by GI Comment Review of Relevant I have reviewed the following items jey (where applicable) has been applied. Medications: Current Medications Medications (Trade) Dose Ordered Sig/Jayna Route PRN Reason Start Time Stop Time Status Last Admin Dose Admin Nystatin (Nystop) 1 juni BID TP 06/14/19 15:00 06/15/19 08:19 LONDON VINES III DO Jun 15, 2019 10:46
[2019-06-15 11:32] VITALS: BP 152/99
--- NOTE | 2019-06-15 12:30 | PDOC ---
PULMONARY PROGRESS NOTES Subjective no soa Vitals Vital Signs Date Time Temp Pulse Resp B/P (MAP) Pulse Ox O2 Delivery O2 Flow Rate FiO2 06/15/19 11:32 99.0 95 20 152/99 (116) 94 Nasal Cannula 2.0 99.0 General: Alert, No acute distress Lungs: Clear Cardiovascular: S1, S2 Abdomen: Soft, Non-tender Neuro Exam: Alert Extremities: No Edema Skin: Warm Medications Active Scripts Medications Dose Route/Sig Max Daily Dose Days Date Category Dose Instructions [isosource 1.5] PEG 06/12/19 Reported Isosource 1.5 ml 40ml/hr via pump continuous/ flush peg with 120 ml H20 four times a day [prostat] PEG DAILY 06/12/19 Reported Zofran (Ondansetron Hcl) 4 Mg Tablet 1 Tab PEG Q6HRS PRN 06/12/19 Reported Protonix Packet (Pantoprazole Sodium) 40 Mg Granpkt.dr 20 Mg PEG DAILY 06/12/19 Reported Oxybutynin Chloride 5 Mg Tablet 5 Mg PEG BID 06/12/19 Reported Nystatin-Triamcinolone Cream (Nystatin/Triamcin) 15 Gm Cream..g. 1 Sis TP Q8H PRN 06/12/19 Reported apply to affected area topically every 8 hours as needed for yeast suprapubic ceja site and pannus [guaifenesin liquid] 20 ml Liq PEG Q12HR PRN 06/12/19 Reported 100mg per 5 ml Glycopyrrolate 1.5 Mg Tablet 1 Mg PO QID 06/12/19 Reported Bactrim Ds Tablet (Sulfamethoxazole/Trimethoprim) 1 Each Tablet 1 Tab PO BID 06/12/19 Reported started 06/06/19 Tramadol Hcl 50 Mg Tablet 50 Mg PO Q6HRS PRN 09/30/18 Reported Tizanidine Hcl 4 Mg Tablet 6 Mg PO QID 09/30/18 Reported Senna (Sennosides) 8.6 Mg Tablet 8.6 Mg PO HS 09/30/18 Reported two tablets at bedtime, hold for loose stool Ipratropium [place] 0.2 Mg/1 Ml Solution 1 Vial NEB Q4HRS PRN 09/30/18 Reported Glycolax (Polyethylene Glycol 3350) 119 Gm Powder 17 Gm PO BID 09/30/18 Reported hold for loose stool Claritin (Loratadine) 10 Mg Tablet 1 Tab PO DAILY 09/30/18 Reported Baclofen 20 Mg Tablet 1 Tab PO QID 09/30/18 Reported Aspir-Low (Aspirin) 81 Mg Tablet. 1 Tab PO DAILY 09/30/18 Reported Acetaminophen 500 Mg Tablet 1 Tab PO Q4HRS PRN 09/30/18 Reported Impression . 1. The patient with mild hypoxia and emesis. Likely aspiration pneumonia 2. Advanced multiple sclerosis. 3. Dysphagia, on PEG tube, probably malfunctioning. Plan . 1. Continue with present oxygen to keep saturation 92% and above. 2. Broad-spectrum antibiotic 3. Monitor for fever . followup chest x-ray with increase LLL infiltrate 4. Deep vein thrombosis prophylaxis. 5. keep NPO 6. We will follow along with you. Discussed with RN./ DR Perez. Stable for PEG replacement. BELÉN MAURER MD Jun 15, 2019 12:30
[2019-06-15] MEDS: AMINO AC 3%/ELECTROLYTE/GLYCER 1,000 ML IV SCH (12:54)
[2019-06-15] MEDS ORDERED: PROPOFOL 20 ML IV ONE (15:08)
--- NOTE | 2019-06-15 15:31 | PDOC4 ---
PROCEDURE Procedure EGD/re-PEG Indication: failing G-tube Meds: per anesthesia Findings: E--normal G--old G-tube, otherwise normal. D--normal bulb. ---old tube cut, pushed into stomach, grasped with snare and removed. 'Scope re-inserted and string inserted in old stoma, grasped with snare and pulled out mouth. New g-tube placed in standard fashion. Tati. well. IMP: Failing g-tube, replaced. REC: OK to re-start tube feedings immediately. MAGDALENA FITZPATRICK MD Jun 15, 2019 15:31
[2019-06-15] MEDS: ENOXAPARIN 40 MG/0.4 ML SYRINGE. SQ SCH (18:15)
[2019-06-15 19:15] VITALS: BP 143/90
[2019-06-15 23:38] VITALS: BP 146/88
--- NOTE | 2019-06-16 00:30 | NUR ---
This RN resumed care of the patient at this time.
[2019-06-16] MEDS: PIPERACILLIN/TAZOBACTAM 4.5 GM in IV NORMAL SALINE 100ML 100 ML IV SCH ×2 (00:39→05:55)
[2019-06-16 03:18] VITALS: BP 116/72
[2019-06-16] MEDS: PANTOPRAZOLE IV PUSH 40 MG VIAL. IVP SCH (05:57)
[2019-06-16 07:27] VITALS: BP 133/86
[2019-06-16] MEDS: NYSTATIN TOPICAL POWDER 15GM BOTTLE. TP SCH (09:30)
--- NOTE | 2019-06-16 10:36 | PDOC ---
Subjective: Subjective: Indicates new tube is okay. Objective: Vital Signs: Vital Signs Date Time Temp Pulse Resp B/P (MAP) Pulse Ox O2 Delivery O2 Flow Rate FiO2 06/16/19 07:27 97.5 87 20 133/86 (102) 96 Nasal Cannula 2.0 97.5 Labs: BLOOD CULTURE Preliminary NO GROWTH AFTER 4 DAYS PE: GEN: NAD LUNGS: NC, coughs HEART: RRR ABD: soft, non-tender, new PEG in place and feeds running, removed gauze from under bumper NEURO/PSYCH: awake/alert, non-verbal A/P: Aspiration pneumonia, UTI, ?GPC bacteremia MS s/p PEG replacement -- New PEG functioning. Can give PPI through tube and stop PPN. RUPERT WILSON Jun 16, 2019 10:36
--- NOTE | 2019-06-16 11:05 | SNU/HH DC ---
DISCHARGE ORDERS DISCHARGE INFORMATION: FINAL DIAGNOSIS Problems Medical Problems: (1) Aspiration pneumonia Status: Acute (2) Multiple sclerosis Status: Acute (3) Muscle contracture Status: Acute (4) Nausea and vomiting Status: Acute (5) UTI (urinary tract infection) due to urinary indwelling Ceja catheter Status: Acute CONDITION ON DISCHARGE: Stable CODE STATUS: Code Status: Full LONG-TERM: SNF STAY <30 DAYS: No HOSPICE: HOSPICE: No HOSPICE EVAL & TREAT: No LTAC: ADMIT TO LTAC: No POST DISCHARGE ORDERS: ACTIVITY ORDERS: Resume previous activity, Other ROM activity WEIGHT BEARING STATUS: Other, see below DIET AFTER DISCHARGE: NPO WOUND/INCISION CARE: Change dressing DISCHARGE MEDICATIONS: Home Meds Reported Medications [isosource 1.5] No Conflict Check, PEG for enteral feed Isosource 1.5 ml 40ml/hr via pump continuous/ flush peg with 120 ml H20 four times a day 06/12/19 [prostat] No Conflict Check, PEG DAILY for supplement 06/12/19 Ondansetron Hcl (ZOFRAN) 4 Mg Tablet, 1 TAB PEG Q6HRS PRN for NAUSEA, #20 TAB 06/12/19 Pantoprazole Sodium (PROTONIX PACKET) 40 Mg Granpkt.dr, 20 MG PEG DAILY for g erd, PACKET 06/12/19 Oxybutynin Chloride (OXYBUTYNIN CHLORIDE) 5 Mg Tablet, 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, TAB 06/12/19 Nystatin/Triamcin (NYSTATIN-TRIAMCINOLONE CREAM) 15 Gm Cream..g., 1 DARIAN TP Q8H PRN for ski, #15 GM 1 Refill apply to affected area topically every 8 hours as needed for yeast suprapubic ceja site and pannus 06/12/19 [guaifenesin liquid] 20 ml LIQ No Conflict Check, PEG Q12HR PRN for COUGH 100mg per 5 ml 06/12/19 Glycopyrrolate (Glycopyrrolate) 1.5 Mg Tablet, 1 MG PO QID for excessive secretions, TAB 06/12/19 Sulfamethoxazole/Trimethoprim (BACTRIM DS TABLET) 1 Each Tablet, 1 TAB PO BID for UTI, #14 TAB started 06/06/19 06/12/19 Tramadol Hcl (TRAMADOL HCL) 50 Mg Tablet, 50 MG PO Q6HRS PRN for PAIN, TAB 0 Refills 09/30/18 Tizanidine Hcl (TIZANIDINE HCL) 4 Mg Tablet, 6 MG PO QID for muscle spasm, TAB 09/30/18 Sennosides (SENNA) 8.6 Mg Tablet, 8.6 MG PO HS for conspitation, TAB two tablets at bedtime, hold for loose stool 09/30/18 Ipratropium [place] (IPRATROPIUM BROMIDE) 0.2 Mg/1 Ml Solution, 1 VIAL NEB Q4HRS PRN for SHORTNESS OF BREATH, #300 ML 5 Refills 09/30/18 Polyethylene Glycol 3350 (GLYCOLAX) 119 Gm Powder, 17 GM PO BID for constipation , #527 GM hold for loose stool 09/30/18 Loratadine (CLARITIN) 10 Mg Tablet, 1 TAB PO DAILY for allergy, #30 TAB 5 Refills 09/30/18 Baclofen (BACLOFEN) 20 Mg Tablet, 1 TAB PO QID for ms, #90 TAB 2 Refills 09/30/18 Aspirin (ASPIR-LOW) 81 Mg Tablet.dr, 1 TAB PO DAILY for ppx, #30 TAB 3 Refills 09/30/18 Acetaminophen (ACETAMINOPHEN) 500 Mg Tablet, 1 TAB PO Q4HRS PRN for FEVER > 101, #60 TAB 1 Refill 09/30/18 LONDON VINES III DO Jun 16, 2019 11:05
--- NOTE | 2019-06-16 11:07 | PDOC ---
[facility] [facility] PROGRESS NOTE Chief Complaint Chief Complaint Aspiration Pneumonia Nausea/Vomiting Advanced MS Chronic PEG line History of Present Illness History of Present Illness 06/16/19 Pt seen and examined at bedside resting comfortably Pt at baseline Replacement PEG examined LILIYA RN for plan to discharge 06/15/19 Pt seen and examined at bedside resting comfortably Pt appears to be at baseline PEG line will be replaced at 1300 today LILIYA RN 06/14/19 Pt seen and examined at bedside resting comfortably Pt appears at baseline PEG line still maintained and appears old and needing changed LILIYA Pulm who cleared pt for PEG change; LILIYA GI that pt is cleared for PEG change DW RN 06/13/19 Pt seen/examined at bedside and resting comfortably PEG line appears to be old and has not been changed in a while Chart Reviewed LILIYA RN Vitals/I&O Vitals/I&O: Vital Signs Date Time Temp Pulse Resp B/P (MAP) Pulse Ox O2 Delivery O2 Flow Rate FiO2 06/16/19 07:27 97.5 87 20 133/86 (102) 96 Nasal Cannula 2.0 97.5 I & O 06/15/19 06/15/19 06/16/19 15:00 23:00 07:00 Intake Total 0 ml 600 ml 0 ml Output Total 1550 ml Balance 0 ml -950 ml 0 ml Physical Exam Physical Exam: VITALS: Within normal limits and are stable. GENERAL: No apparent distress. Alert and oriented. HEENT: Head is normocephalic, atraumatic, pupils were equally round and reactive to light and accommodation. NECK: Supple, no JVD, no thyromegaly was noted. LUNGS: Clear to auscultation in all lung alva without rhonchi or wheezing. HEART: RRR, S1, S2 present. Peripheral pulses intact, no obvious murmurs were noted. ABDOMEN: She has a PEG tube appears to be quite old and I am going to consult GI to replace it. EXTREMITIES: Upper extremities are contracted. NEUROLOGIC: She cannot move, she cannot talk, and she does nod. PSYCHIATRIC: Normal affect, normal mood. Stable. SKIN: No ulcerations or rashes, good skin turgor, no jaundice. VASCULAR: Good capillary refill, neurovascular bundle appears to be intact. General: No acute distress Heart: Normal S1 Lungs: Clear Abdomen: Normal bowel sounds, Soft, No tenderness Extremities: No clubbing, No cyanosis Skin: No rashes, No significant lesion Review of Systems Review of Systems: co weakness no co SOB Assessment and Plan Assessmemt and Plan Problems Medical Problems: (1) Aspiration pneumonia Status: Acute (2) Multiple sclerosis Status: Acute (3) Muscle contracture Status: Acute (4) Nausea and vomiting Status: Acute (5) UTI (urinary tract infection) due to urinary indwelling Kern catheter Status: Acute Assessment: Aspiration Pneumonia Nausea/Vomiting Advanced MS Chronic PEG line Plan: Discharge to [facility] today DVT prophylaxis PT/OT Home Meds F/U with PCP Comment Review of Relevant I have reviewed the following items jey (where applicable) has been applied. LONDON VINES III DO Jun 16, 2019 11:07
[2019-06-16 11:40] VITALS: BP 124/69
--- NOTE | 2019-06-16 12:10 | PDOC ---
PULMONARY PROGRESS NOTES Subjective no soa Vitals Vital Signs Date Time Temp Pulse Resp B/P (MAP) Pulse Ox O2 Delivery O2 Flow Rate FiO2 06/16/19 11:40 98.5 89 20 124/69 (87) 96 Nasal Cannula 2.0 98.5 General: Alert, No acute distress Lungs: Clear Cardiovascular: S1, S2 Abdomen: Soft, Non-tender Neuro Exam: Alert Extremities: No Edema Skin: Warm Medications Active Scripts Medications Dose Route/Sig Max Daily Dose Days Date Category Dose Instructions [isosource 1.5] PEG 06/12/19 Reported Isosource 1.5 ml 40ml/hr via pump continuous/ flush peg with 120 ml H20 four times a day [prostat] PEG DAILY 06/12/19 Reported Zofran (Ondansetron Hcl) 4 Mg Tablet 1 Tab PEG Q6HRS PRN 06/12/19 Reported Protonix Packet (Pantoprazole Sodium) 40 Mg Granpkt.dr 20 Mg PEG DAILY 06/12/19 Reported Oxybutynin Chloride 5 Mg Tablet 5 Mg PEG BID 06/12/19 Reported Nystatin-Triamcinolone Cream (Nystatin/Triamcin) 15 Gm Cream..g. 1 Sis TP Q8H PRN 06/12/19 Reported apply to affected area topically every 8 hours as needed for yeast suprapubic ceja site and pannus [guaifenesin liquid] 20 ml Liq PEG Q12HR PRN 06/12/19 Reported 100mg per 5 ml Glycopyrrolate 1.5 Mg Tablet 1 Mg PO QID 06/12/19 Reported Bactrim Ds Tablet (Sulfamethoxazole/Trimethoprim) 1 Each Tablet 1 Tab PO BID 06/12/19 Reported started 06/06/19 Tramadol Hcl 50 Mg Tablet 50 Mg PO Q6HRS PRN 09/30/18 Reported Tizanidine Hcl 4 Mg Tablet 6 Mg PO QID 09/30/18 Reported Senna (Sennosides) 8.6 Mg Tablet 8.6 Mg PO HS 09/30/18 Reported two tablets at bedtime, hold for loose stool Ipratropium [place] 0.2 Mg/1 Ml Solution 1 Vial NEB Q4HRS PRN 09/30/18 Reported Glycolax (Polyethylene Glycol 3350) 119 Gm Powder 17 Gm PO BID 09/30/18 Reported hold for loose stool Claritin (Loratadine) 10 Mg Tablet 1 Tab PO DAILY 09/30/18 Reported Baclofen 20 Mg Tablet 1 Tab PO QID 09/30/18 Reported Aspir-Low (Aspirin) 81 Mg Tablet.dr 1 Tab PO DAILY 09/30/18 Reported Acetaminophen 500 Mg Tablet 1 Tab PO Q4HRS PRN 09/30/18 Reported Impression . 1. The patient with mild hypoxia and emesis. Likely aspiration pneumonia 2. Advanced multiple sclerosis. 3. Dysphagia, PEG tube, malfunctioning. replaced 06/15 Plan . 1. Continue with present oxygen to keep saturation 92% and above. 2. change to augmentin via PEG 3. No fever . 4. Deep vein thrombosis prophylaxis. 5. keep NPO 6. s/p PEG replacement. ok with dc to [facility] MD Jun 16, 2019 12:10
--- NOTE | 2019-06-16 13:09 | NUR ---
Orders faxed to [place] and pt will transport via stretcher transport at 1400. SW left a message to pt's brother, Gregg. Discussed with RN.
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
[2019-06-16] MEDS ORDERED: AMOXICILLIN/K CLAV 500/125MG TABLET. PO SCH (21:00)
[2019-06-17] MEDS ORDERED: LANSOPRAZOLE 30 MG TAB.RAP.DR FT SCH (07:30)
== END 2019-06-16 14:20 | disposition home or self-care (01) | DRG 393 ==
LOC: ER 07:27 → 6 SOUTH 09:01
PROVIDERS: ADMIT Internal Medicine; ATTEND Internal Medicine
PROC: 0DH63UZ Insertion of Feeding Device into Stomach, Percutaneous Approach (ICD-10-PCS; principal; 2019-06-15 15:00)
DX: K94.23 Gastrostomy malfunction (principal); J69.0 Pneumonitis due to inhalation of food and vomit; T83.511A Infection and inflammatory reaction due to indwelling urethral catheter, initial encounter; J98.11 Atelectasis; R47.01 Aphasia; R78.81 Bacteremia; N39.0 Urinary tract infection, site not specified; G35 Multiple sclerosis; K59.00 Constipation, unspecified; K80.20 Calculus of gallbladder without cholecystitis without obstruction; M62.40 Contracture of muscle, unspecified site; N31.9 Neuromuscular dysfunction of bladder, unspecified; R09.02 Hypoxemia; R13.10 Dysphagia, unspecified; Y84.6 Urinary catheterization as the cause of abnormal reaction of the patient, or of later complication, without mention of misadventure at the time of the procedure; Z82.49 Family history of ischemic heart disease and other diseases of the circulatory system; Z86.73 Personal history of transient ischemic attack (TIA), and cerebral infarction without residual deficits
CPT/HCPCS: 31720; 36415; 43246; 71045; 74018; 80053; 81001; 82550; 83605; 83690; 83880; 84484; 85025; 85027; 85610; 87040; 87086; 87186; 87205; 93005; 94640; 96361; 96365; 96368; 96375; C9113; J0780; J1650; J2405; J2543; J2704; J2930; J3370; J7030; J7040; J7120; J7620; 99285-25; G0378

== ENCOUNTER 2020-01-26 10:31 | Inpatient (IN) | payer MEDICARE, OTHER ==
[~2020-01-26] VITALS: Ht 162.6 cm; Wt 96.1 kg
[~2020-01-26 10:31] MED LIST changes: +GLYC1.5T4 PO; +GUAIFENESIN PEG; +ISOSOURCE PEG; +NYST15CR2 TP; +ONDA4TAB7 PEG; +OXYB5TAB10 PEG; +OXYB5TAB10 PO; -OXYB5TAB7 PO; +PANT40GR PEG; +SULF1TAB24 PO; +prostat PEG
[2020-01-26] MEDS ORDERED: IV NORMAL SALINE 1000ML BAG 1,380 ML IV SCH (11:05)
[2020-01-26] MEDS ORDERED: ACETAMINOPHEN 650 MG SUPP.RECT. PR ONE (11:15)
[2020-01-26] MEDS ORDERED: AZITHRMYCN 500MG IVPB FOR OMNI 250 ML IV ONE (11:15)
[2020-01-26] MEDS ORDERED: PIPERACILLIN/TAZOBACTAM 4.5 GM in IV NORMAL SALINE 100ML 100 ML IV ONE (11:15)
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
[2020-01-26 11:39] LABS: BASO # 0.1 x10^3/uL (0.0-0.2); BASO % 1 % (0-3); EOS % 0 % (0-3); HEMATOCRIT 41.7 % (36.0-47.0); HEMOGLOBIN 13.7 g/dL (12.0-15.5); LYMPH # 0.6 x10^3/uL (1.0-4.8); LYMPH % 4 % (24-48); MEAN CORPUSCULAR HEMOGLOBIN 29 pg (25-35); MEAN CORPUSCULAR HGB CONC 33 g/dL (31-37); MEAN CORPUSCULAR VOLUME 88 fL (79-100); MONO # 0.4 x10^3/uL (0.0-1.1); MONO % 3 % (0-9); NEUT # 12.6 x10^3/uL (1.8-7.7); NEUT % 92 % (31-73); PLATELET COUNT 204 x10^3/uL (140-400); RED BLOOD COUNT 4.76 x10^6/uL (3.50-5.40); RED CELL DISTRIBUTION WIDTH 18.2 % (11.5-14.5); WHITE BLOOD COUNT 13.7 x10^3/uL (4.0-11.0)
[2020-01-26 11:42] LABS: BILIRUBIN,URINE NEGATIVE (NEG); CLARITY,URINE CLEAR; COLOR,URINE AMBER; NITRITE,URINE NEGATIVE (NEG); PROTEIN,URINE 100 mg/dL (NEG-TRACE)
--- NOTE | 2020-01-26 11:42 | RAD ---
EXAM: PORTABLE CHEST 1V INDICATION: Cough.. TECHNIQUE: Portable semiupright single AP view COMPARISON: 06/25/2019 chest x-ray FINDINGS: The previous right PICC line has been removed. The heart size is normal. The great vessels appear unremarkable. No hilar mass or adenopathy is evident. Mediastinum shows normal caliber with aortic calcifications. Lungs are hypoventilatory as before and more confluent consolidation at the left lung base is evident with obscuring the left diaphragm. There is no pleural effusion or pneumothorax. There are no significant osseous abnormalities. IMPRESSION: Slightly worse left basilar pneumonia. Electronically signed by: Christy Reid MD (01/26/2020 11:39 AM) [id number]
[2020-01-26 11:55] LABS: CALCIUM 9.1 mg/dL (8.5-10.1); CREATININE 0.7 mg/dL (0.6-1.0); GFR 105.1; POTASSIUM 3.8 mmol/L (3.5-5.1)
--- NOTE | 2020-01-26 11:59 | EKG ---
[facility] [address] [place] [address] Test Date: 2020-01-26 Test Time: 10:44:23 Pat Name: ROSALBA MONTERO Department: Room: Gender: F Furniture Refinisher: : 1965 Requested By: KASH KEITH Order Number: [id number] Reading MD: Azar Joel MD Measurements Intervals Anthony Rate: 130 P: 23 WI: 162 QRS: 109 QRSD: 72 T: 4 QT: 274 QTc: 409 Interpretive Statements SINUS TACHYCARDIA NON-SPECIFIC ST/T CHANGES Electronically Signed On 01-29-2020 10:32:05 CDT by Azar Joel MD
[2020-01-26 12:00] LABS: ALBUMIN 2.9 g/dL (3.4-5.0); ALBUMIN/GLOBULIN RATIO 0.6 (1.0-1.7); TOTAL BILIRUBIN 0.4 mg/dL (0.2-1.0); TOTAL PROTEIN 8.1 g/dL (6.4-8.2)
[2020-01-26 12:01] LABS: BACTERIA,URINE 0 /HPF (0-FEW); RBC,URINE 0 /HPF (0-2); SQUAMOUS EPITHELIAL CELL,UR OCC /LPF; WBC,URINE 0 /HPF (0-4)
[2020-01-26 12:08] LABS: CREATINE KINASE 191 U/L (26-192)
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
[2020-01-26 12:52] LABS: % BANDS 43 % (0-9); % METAS 1 % (0-0); % MONOS 4 % (0-10)
[2020-01-26 12:53] LABS: % LYMPHS 6 % (24-48); % SEGS 46 % (35-66); ANISOCYTOSIS SLIGHT; PLT ESTIMATE ADEQUATE (ADEQUATE); POLYCHROMASIA SLIGHT
[2020-01-26 12:54] LABS: TOXIC VACUOLATION SLIGHT
[2020-01-26] MEDS ORDERED: ONDANSETRON PF 4 MG/2 ML VIAL. IV PRN ×3 (13:30→15:30)
[2020-01-26 13:50] VITALS: BP 126/83
[2020-01-26] MEDS ORDERED: guaiFENesin ORAL 200 MG/10 ML LIQUID. PO PRN (14:15)
[2020-01-26] MEDS ORDERED: ACETAMINOPHEN 650 MG SUPP.RECT. PR PRN ×2 (14:15→15:30)
[2020-01-26] MEDS ORDERED: 0.9 % SODIUM CHLORIDE 10 ML DISP.SYRIN. IV PRN ×2 (14:15→15:30)
[2020-01-26] MEDS ORDERED: diphenhydrAMINE 50 MG/ML VIAL IVP PRN (14:15)
[2020-01-26] MEDS ORDERED: DOCUSATE SODIUM 100 MG CAPSULE. PO PRN (14:15)
[2020-01-26] MEDS ORDERED: cloNIDine HCL 0.1 MG TABLET PO PRN (14:15)
[2020-01-26] MEDS ORDERED: SODIUM PHOSPHATES 19/7GM 133 ML ENEMA. PR PRN (15:30)
[2020-01-26] MEDS ORDERED: ENOXAPARIN 40 MG/0.4 ML SYRINGE. SQ SCH (15:30)
[2020-01-26] MEDS ORDERED: IPRATRPIUM/ALBUTEROL 0.5/2.5MG 3 ML NEBU. NEB PRN ×2 (16:00→18:00)
[2020-01-26] MEDS: ENOXAPARIN 40 MG/0.4 ML SYRINGE. SQ SCH (17:31)
[2020-01-26] MEDS ORDERED: IPRATRPIUM/ALBUTEROL 0.5/2.5MG 3 ML NEBU. NEB SCH ×2 (18:00)
[2020-01-26 19:00] VITALS: BP 144/67
[2020-01-26] MEDS: IV NORMAL SALINE 1000ML BAG 1,000 ML IV SCH (19:34)
[2020-01-26] MEDS: PIPERACILLIN/TAZOBACTAM 3.375 GM in IV NORMAL SALINE 50ML 50 ML IV SCH (19:35)
[2020-01-26 23:00] VITALS: BP 122/59
[2020-01-27] MEDS: PIPERACILLIN/TAZOBACTAM 3.375 GM in IV NORMAL SALINE 50ML 50 ML IV SCH ×3 (00:27→11:47)
[2020-01-27] MEDS: DEXTROSE 50% 25 GM / 50ML DISP.SYRIN. IV PRN ×2 (00:28→18:32)
[2020-01-27 03:00] VITALS: BP 117/57
--- NOTE | 2020-01-27 05:24 | NUR ---
Patient triggered a positive sepsis screen, was paged and, RN was given instructions to follow protocol. A stat Lactic order was put in but the lab te was not able to get any blood for a draw. Next available tech did not come in until 330 to make draw.
[2020-01-27] MEDS: IV NORMAL SALINE 1000ML BAG 1,000 ML IV SCH ×2 (06:05→17:04)
[2020-01-27 07:00] VITALS: BP 102/61
[2020-01-27] MEDS ORDERED: AZITHRMYCN 500MG IVPB FOR OMNI 250 ML IV SCH (07:00)
--- NOTE | 2020-01-27 08:26 | PDOC ---
PROGRESS NOTES Chief Complaint Chief Complaint left basilar pneumonia - started on broad spectrum antibiotics, cultures obtained. covid -19 POSITIVE SEPSIS Transaminitis Advanced multiple sclerosis - bedbound, with contractures Anemia Constipation Dementia Neurogentic bladder - s/p suprapubic catheter Vit D def Dysphagia - maintained on g-tube feedings H/o multiple MDRO pneumonia and UTI infections COVID-19 CRITERIA: The patient was evaluated during the global COVID-19 pandemic, and that diagnosis was suspected/considered upon their initial presentation. Their evaluation, treatment and testing were consistent with current guidelines for patients who present with complaints or symptoms that may be related to COVID-19 History of Present Illness History of Present Illness Ms Diego is a 54yo F SN[facility] resident w/ PMHx advanced multiple sclerosis, Anemia, Constipation, Dementia, neurogentic bladder, vit D def, ataxia, dysphagia, multi ple MDRO pneumonia and UTI infections, bedbound, with contractures and maintained on g-tube feedings and suprapubic catheter who was brought to ED due to observed shortness of breath and exposure to SARS-CoV-2 positive patient. WBC elevated 13.7, Temp 103.5F and transaminases AST 50, ALT 71 as well as lactate 2.2 and hypoxic requiring 8L NCO2. Found on CXR with left basilar pneumonia, admitted for further care. Not verbally responsive. Does not appear in distress. Labs improved. O2 improved. COVID 19 positive Vitals Vitals Vital Signs Date Time Temp Pulse Resp B/P (MAP) Pulse Ox O2 Delivery O2 Flow Rate FiO2 01/27/20 03:00 103.4 105 20 117/57 (77) 96 Nasal Cannula 8.0 103.4 Physical Exam General: Cooperative, mild distress Lungs: Clear Abdomen: Normal bowel sounds Extremities: No cyanosis Labs LABS Laboratory Tests Test 01/26/20 10:45 01/26/20 11:24 01/26/20 16:38 01/27/20 00:14 Urine Collection Type Unknown Urine Color Mindy Urine Clarity Clear Urine pH 7.0 (<5.0-8.0) Urine Specific Burt 1.025 (1.000-1.030) Urine Protein 100 mg/dL (NEG-TRACE) Urine Glucose (UA) Negative mg/dL (NEG) Urine Ketones (Stick) Negative mg/dL (NEG) Urine Blood Large (NEG) Urine Nitrite Negative (NEG) Urine Bilirubin Negative (NEG) Urine Urobilinogen Dipstick 1.0 mg/dL (0.2 mg/dL) Urine Leukocyte Esterase Moderate (NEG) Urine RBC 0 /HPF (0-2) Urine WBC 0 /HPF (0-4) Urine Squamous Epithelial Cells Occ /LPF Urine Bacteria 0 /HPF (0-FEW) White Blood Count 13.7 x10^3/uL (4.0-11.0) Red Blood Count 4.76 x10^6/uL (3.50-5.40) Hemoglobin 13.7 g/dL (12.0-15.5) Hematocrit 41.7 % (36.0-47.0) Mean Corpuscular Volume 88 fL (79-100) Mean Corpuscular Hemoglobin 29 pg (25-35) Mean Corpuscular Hemoglobin Concent 33 g/dL (31-37) Red Cell Distribution Width 18.2 % (11.5-14.5) Platelet Count 204 x10^3/uL (140-400) Neutrophils (%) (Auto) 92 % (31-73) Lymphocytes (%) (Auto) 4 % (24-48) Monocytes (%) (Auto) 3 % (0-9) Eosinophils (%) (Auto) 0 % (0-3) Basophils (%) (Auto) 1 % (0-3) Neutrophils # (Auto) 12.6 x10^3/uL (1.8-7.7) Lymphocytes # (Auto) 0.6 x10^3/uL (1.0-4.8) Monocytes # (Auto) 0.4 x10^3/uL (0.0-1.1) Eosinophils # (Auto) 0.0 x10^3/uL (0.0-0.7) Basophils # (Auto) 0.1 x10^3/uL (0.0-0.2) Segmented Neutrophils % 46 % (35-66) Band Neutrophils % 43 % (0-9) Lymphocytes % 6 % (24-48) Monocytes % 4 % (0-10) Metamyelocytes % 1 % (0-0) Toxic Vacuolation Slight Platelet Estimate Adequate (ADEQUATE) Polychromasia Slight Anisocytosis Slight Sodium Level 137 mmol/L (136-145) Potassium Level 3.8 mmol/L (3.5-5.1) Chloride Level 102 mmol/L (98-107) Carbon Dioxide Level 26 mmol/L (21-32) Anion Gap 9 (6-14) Blood Urea Nitrogen 22 mg/dL (7-20) Creatinine 0.7 mg/dL (0.6-1.0) Estimated GFR (Cockcroft-Gault) 105.1 BUN/Creatinine Ratio 31 (6-20) Glucose Level 126 mg/dL (70-99) Lactic Acid Level 2.0 mmol/L (0.4-2.0) Calcium Level 9.1 mg/dL (8.5-10.1) Total Bilirubin 0.4 mg/dL (0.2-1.0) Aspartate Amino Transf (AST/SGOT) 50 U/L (15-37) Alanine Aminotransferase (ALT/SGPT) 71 U/L (14-59) Alkaline Phosphatase 94 U/L (46-116) Creatine Kinase 191 U/L (26-192) Creatine Kinase MB (Mass) < 0.5 ng/mL (0.0-3.6) Creatine Kinase MB Relative Index 0.3 % (0-4) Total Protein 8.1 g/dL (6.4-8.2) Albumin 2.9 g/dL (3.4-5.0) Albumin/Globulin Ratio 0.6 (1.0-1.7) Procalcitonin 0.36 ng/mL (0.00-0.10) Glucose (Fingerstick) 92 mg/dL (70-99) 65 mg/dL (70-99) Test 01/27/20 01:13 01/27/20 03:45 Glucose (Fingerstick) 105 mg/dL (70-99) Lactic Acid Level 2.2 mmol/L (0.4-2.0) Assessment and Plan Assessmemt and Plan Problems Medical Problems: (1) Fever Status: Acute (2) Left lower lobe pneumonia Status: Acute (3) Respiratory failure Status: Acute (4) Sepsis Status: Acute Comment Review of Relevant I have reviewed the following items jey (where applicable) has been applied. Labs Laboratory Tests Test 01/26/20 10:45 01/26/20 11:24 01/26/20 16:38 01/27/20 00:14 Urine Collection Type Unknown Urine Color Mindy Urine Clarity Clear Urine pH 7.0 (<5.0-8.0) Urine Specific Burt 1.025 (1.000-1.030) Urine Protein 100 mg/dL (NEG-TRACE) Urine Glucose (UA) Negative mg/dL (NEG) Urine Ketones (Stick) Negative mg/dL (NEG) Urine Blood Large (NEG) Urine Nitrite Negative (NEG) Urine Bilirubin Negative (NEG) Urine Urobilinogen Dipstick 1.0 mg/dL (0.2 mg/dL) Urine Leukocyte Esterase Moderate (NEG) Urine RBC 0 /HPF (0-2) Urine WBC 0 /HPF (0-4) Urine Squamous Epithelial Cells Occ /LPF Urine Bacteria 0 /HPF (0-FEW) White Blood Count 13.7 x10^3/uL (4.0-11.0) Red Blood Count 4.76 x10^6/uL (3.50-5.40) Hemoglobin 13.7 g/dL (12.0-15.5) Hematocrit 41.7 % (36.0-47.0) Mean Corpuscular Volume 88 fL (79-100) Mean Corpuscular Hemoglobin 29 pg (25-35) Mean Corpuscular Hemoglobin Concent 33 g/dL (31-37) Red Cell Distribution Width 18.2 % (11.5-14.5) Platelet Count 204 x10^3/uL (140-400) Neutrophils (%) (Auto) 92 % (31-73) Lymphocytes (%) (Auto) 4 % (24-48) Monocytes (%) (Auto) 3 % (0-9) Eosinophils (%) (Auto) 0 % (0-3) Basophils (%) (Auto) 1 % (0-3) Neutrophils # (Auto) 12.6 x10^3/uL (1.8-7.7) Lymphocytes # (Auto) 0.6 x10^3/uL (1.0-4.8) Monocytes # (Auto) 0.4 x10^3/uL (0.0-1.1) Eosinophils # (Auto) 0.0 x10^3/uL (0.0-0.7) Basophils # (Auto) 0.1 x10^3/uL (0.0-0.2) Segmented Neutrophils % 46 % (35-66) Band Neutrophils % 43 % (0-9) Lymphocytes % 6 % (24-48) Monocytes % 4 % (0-10) Metamyelocytes % 1 % (0-0) Toxic Vacuolation Slight Platelet Estimate Adequate (ADEQUATE) Polychromasia Slight Anisocytosis Slight Sodium Level 137 mmol/L (136-145) Potassium Level 3.8 mmol/L (3.5-5.1) Chloride Level 102 mmol/L (98-107) Carbon Dioxide Level 26 mmol/L (21-32) Anion Gap 9 (6-14) Blood Urea Nitrogen 22 mg/dL (7-20) Creatinine 0.7 mg/dL (0.6-1.0) Estimated GFR (Cockcroft-Gault) 105.1 BUN/Creatinine Ratio 31 (6-20) Glucose Level 126 mg/dL (70-99) Lactic Acid Level 2.0 mmol/L (0.4-2.0) Calcium Level 9.1 mg/dL (8.5-10.1) Total Bilirubin 0.4 mg/dL (0.2-1.0) Aspartate Amino Transf (AST/SGOT) 50 U/L (15-37) Alanine Aminotransferase (ALT/SGPT) 71 U/L (14-59) Alkaline Phosphatase 94 U/L (46-116) Creatine Kinase 191 U/L (26-192) Creatine Kinase MB (Mass) < 0.5 ng/mL (0.0-3.6) Creatine Kinase MB Relative Index 0.3 % (0-4) Total Protein 8.1 g/dL (6.4-8.2) Albumin 2.9 g/dL (3.4-5.0) Albumin/Globulin Ratio 0.6 (1.0-1.7) Procalcitonin 0.36 ng/mL (0.00-0.10) Glucose (Fingerstick) 92 mg/dL (70-99) 65 mg/dL (70-99) Test 01/27/20 01:13 01/27/20 03:45 Glucose (Fingerstick) 105 mg/dL (70-99) Lactic Acid Level 2.2 mmol/L (0.4-2.0) Laboratory Tests Test 01/26/20 10:45 01/26/20 11:24 01/26/20 16:38 01/27/20 00:14 Urine Collection Type Unknown Urine Color Mindy Urine Clarity Clear Urine pH 7.0 (<5.0-8.0) Urine Specific Burt 1.025 (1.000-1.030) Urine Protein 100 mg/dL (NEG-TRACE) Urine Glucose (UA) Negative mg/dL (NEG) Urine Ketones (Stick) Negative mg/dL (NEG) Urine Blood Large (NEG) Urine Nitrite Negative (NEG) Urine Bilirubin Negative (NEG) Urine Urobilinogen Dipstick 1.0 mg/dL (0.2 mg/dL) Urine Leukocyte Esterase Moderate (NEG) Urine RBC 0 /HPF (0-2) Urine WBC 0 /HPF (0-4) Urine Squamous Epithelial Cells Occ /LPF Urine Bacteria 0 /HPF (0-FEW) White Blood Count 13.7 x10^3/uL (4.0-11.0) Red Blood Count 4.76 x10^6/uL (3.50-5.40) Hemoglobin 13.7 g/dL (12.0-15.5) Hematocrit 41.7 % (36.0-47.0) Mean Corpuscular Volume 88 fL (79-100) Mean Corpuscular Hemoglobin 29 pg (25-35) Mean Corpuscular Hemoglobin Concent 33 g/dL (31-37) Red Cell Distribution Width 18.2 % (11.5-14.5) Platelet Count 204 x10^3/uL (140-400) Neutrophils (%) (Auto) 92 % (31-73) Lymphocytes (%) (Auto) 4 % (24-48) Monocytes (%) (Auto) 3 % (0-9) Eosinophils (%) (Auto) 0 % (0-3) Basophils (%) (Auto) 1 % (0-3) Neutrophils # (Auto) 12.6 x10^3/uL (1.8-7.7) Lymphocytes # (Auto) 0.6 x10^3/uL (1.0-4.8) Monocytes # (Auto) 0.4 x10^3/uL (0.0-1.1) Eosinophils # (Auto) 0.0 x10^3/uL (0.0-0.7) Basophils # (Auto) 0.1 x10^3/uL (0.0-0.2) Segmented Neutrophils % 46 % (35-66) Band Neutrophils % 43 % (0-9) Lymphocytes % 6 % (24-48) Monocytes % 4 % (0-10) Metamyelocytes % 1 % (0-0) Toxic Vacuolation Slight Platelet Estimate Adequate (ADEQUATE) Polychromasia Slight Anisocytosis Slight Sodium Level 137 mmol/L (136-145) Potassium Level 3.8 mmol/L (3.5-5.1) Chloride Level 102 mmol/L (98-107) Carbon Dioxide Level 26 mmol/L (21-32) Anion Gap 9 (6-14) Blood Urea Nitrogen 22 mg/dL (7-20) Creatinine 0.7 mg/dL (0.6-1.0) Estimated GFR (Cockcroft-Gault) 105.1 BUN/Creatinine Ratio 31 (6-20) Glucose Level 126 mg/dL (70-99) Lactic Acid Level 2.0 mmol/L (0.4-2.0) Calcium Level 9.1 mg/dL (8.5-10.1) Total Bilirubin 0.4 mg/dL (0.2-1.0) Aspartate Amino Transf (AST/SGOT) 50 U/L (15-37) Alanine Aminotransferase (ALT/SGPT) 71 U/L (14-59) Alkaline Phosphatase 94 U/L (46-116) Creatine Kinase 191 U/L (26-192) Creatine Kinase MB (Mass) < 0.5 ng/mL (0.0-3.6) Creatine Kinase MB Relative Index 0.3 % (0-4) Total Protein 8.1 g/dL (6.4-8.2) Albumin 2.9 g/dL (3.4-5.0) Albumin/Globulin Ratio 0.6 (1.0-1.7) Procalcitonin 0.36 ng/mL (0.00-0.10) Glucose (Fingerstick) 92 mg/dL (70-99) 65 mg/dL (70-99) Test 01/27/20 01:13 01/27/20 03:45 Glucose (Fingerstick) 105 mg/dL (70-99) Lactic Acid Level 2.2 mmol/L (0.4-2.0) Medications Current Medications Sodium Chloride 1,380 ml @ 1,380 mls/hr Q1H IV Last administered on 01/26/20at 11:34; Start 01/26/20 at 11:05; Stop 01/27/20 at 07:45; Status DC Piperacillin Sod/ Tazobactam Sod 4.5 gm/Sodium Chloride 100 ml @ 200 mls/hr 1X ONCE IV Last administered on 01/26/20at 13:19; Start 01/26/20 at 11:15; Stop 01/26/20 at 11:44; Status DC Azithromycin 250 ml @ 250 mls/hr 1X ONCE IV Last administered on 01/26/20at 11:41; Start 01/26/20 at 11:15; Stop 01/26/20 at 12:14; Status DC Acetaminophen (Tylenol Supp) 650 mg 1X ONCE ID Last administered on 01/26/20at 11:45; Start 01/26/20 at 11:15; Stop 01/26/20 at 11:18; Status DC Ondansetron HCl (Zofran) 4 mg PRN Q8HRS PRN IV NAUSEA/VOMITING; Start 01/26/20 at 13:30; Stop 01/27/20 at 13:29; Status Cancel Azithromycin 250 ml @ 250 mls/hr DAILY07 IV ; Start 01/27/20 at 07:00; Status UNV Sodium Chloride (Normal Saline Flush) 3 ml QSHIFT PRN IV AFTER MEDS AND BLOOD DRAWS; Start 01/26/20 at 14:15 Sodium Chloride 1,000 ml @ 80 mls/hr [id number] IV Last administered on 01/27/20at 06:05; Start 01/26/20 at 14:14 Ondansetron HCl (Zofran) 4 mg PRN Q4HRS PRN IV NAUSEA/VOMITING; Start 01/26/20 at 14:15; Status Cancel Acetaminophen (Tylenol Supp) 650 mg PRN Q4HRS PRN ID TEMP OVER 100.4F OR MILD PAIN; Start 01/26/20 at 14:15; Status Cancel Clonidine HCl (Catapres) 0.1 mg PRN Q6HRS PRN PO SBP>160 OR DBP>90; Start 01/26/20 at 14:15 Diphenhydramine HCl (Benadryl) 25 mg PRN Q4HRS PRN IVP ITCHING; Start 01/26/20 at 14:15 Docusate Sodium (Colace) 100 mg PRN BID PRN PO CONSTIPATION; Start 01/26/20 at 14:15 Albuterol/ Ipratropium (Duoneb) 3 ml Q4HRS W/A NEB ; Start 01/26/20 at 18:00; Stop 01/26/20 at 14:44; Status DC Guaifenesin (Robitussin) 200 mg PRN Q4HRS PRN PO COUGH; Start 01/26/20 at 14:15 Enoxaparin Sodium (Lovenox 40mg Syringe) 40 mg Q24H SQ Last administered on 01/26/20at 17:31; Start 01/26/20 at 17:00 Piperacillin Sod/ Tazobactam Sod 3.375 gm/Sodium Chloride 50 ml @ 100 mls/hr Q6HRS IV Last administered on 01/27/20at 06:00; Start 01/26/20 at 18:00 Albuterol/ Ipratropium (Duoneb) 3 ml PRN Q4HRS PRN NEB WHEEZING; Start 01/26/20 at 18:00; Status Cancel Azithromycin 500 mg/Sodium Chloride 250 ml @ 250 mls/hr Q24H IV ; Start 01/27/20 at 12:00 Sodium Chloride (Normal Saline Flush) 3 ml QSHIFT PRN IV AFTER MEDS AND BLOOD DRAWS; Start 01/26/20 at 15:30 Ondansetron HCl (Zofran) 4 mg PRN Q4HRS PRN IV NAUSEA/VOMITING; Start 01/26/20 at 15:30 Acetaminophen (Tylenol Supp) 650 mg PRN Q4HRS PRN ID TEMP OVER 100.4F OR MILD PAIN; Start 01/26/20 at 15:30 Sodium Monofluorophosphate (Fleet Adult) 133 ml PRN DAILY PRN ID CONSTIPATION; Start 01/26/20 at 15:30 Albuterol/ Ipratropium (Duoneb) 3 ml Q4HRS W/A NEB ; Start 01/26/20 at 18:00; Stop 01/26/20 at 15:51; Status DC Enoxaparin Sodium (Lovenox 40mg Syringe) 40 mg Q24H SQ ; Start 01/26/20 at 15:30; Status UNV Albuterol/ Ipratropium (Duoneb) 3 ml PRN Q4HRS PRN NEB WHEEZING Last administered on 01/26/20at 17:58; Start 01/26/20 at 16:00 Dextrose (Dextrose 50%-Water Syringe) 12.5 gm PRN Q15MIN PRN IV SEE COMMENTS Last administered on 01/27/20at 00:28; Start 01/27/20 at 00:30 Active Scripts Active Reported Zofran (Ondansetron Hcl) 4 Mg Tablet 1 Tab PEG Q6HRS PRN Oxybutynin Chloride 5 Mg Tablet 5 Mg PEG BID Nystatin-Triamcinolone Cream (Nystatin/Triamcin) 15 Gm Cream..g. 1 Sis TP Q8H PRN apply to affected area topically every 8 hours as needed for yeast suprapubic ceja site and pannus Glycopyrrolate 1.5 Mg Tablet 1 Mg PO QID Tramadol Hcl 50 Mg Tablet 50 Mg PO Q6HRS PRN Tizanidine Hcl 4 Mg Tablet 6 Mg PO QID Senna (Sennosides) 8.6 Mg Tablet 8.6 Mg PO HS two tablets at bedtime, hold for loose stool Glycolax (Polyethylene Glycol 3350) 119 Gm Powder 17 Gm PO BID hold for loose stool Baclofen 20 Mg Tablet 1 Tab PO QID Aspir-Low (Aspirin) 81 Mg Tablet. 1 Tab PO DAILY Acetaminophen 500 Mg Tablet 1 Tab PO Q4HRS PRN Vitals/I & O Vital Sign - Last 24 Hours 01/26/20 01/26/20 01/26/20 01/26/20 10:45 11:00 11:16 12:13 Temp 102.8 102.8 Pulse 130 120 129 113 Resp 32 32 32 28 B/P (MAP) 135/75 (95) 132/77 (95) 130/66 (87) 144/72 (96) Pulse Ox 94 95 97 97 O2 Delivery Nasal Cannula Nasal Cannula Nasal Cannula Nasal Cannula O2 Flow Rate 6.0 8.0 8.0 8.0 01/26/20 01/26/20 01/26/20 01/26/20 13:15 13:32 13:45 13:50 Temp 102.2 102.2 Pulse 114 112 Resp 26 18 B/P (MAP) 145/76 (99) 132/72 (92) Pulse Ox 97 96 O2 Delivery Nasal Cannula Nasal Cannula Nasal Cannula O2 Flow Rate 8.0 8.0 8.0 01/26/20 01/26/20 01/26/20 01/26/20 13:50 14:15 14:30 15:00 Temp 102.5 102.4 102.5 102.4 Pulse 116 114 116 116 Resp 18 16 18 18 B/P (MAP) 126/83 (97) 156/86 (109) 139/67 (91) 132/64 (86) Pulse Ox 92 97 98 96 O2 Delivery Nasal Cannula Nasal Cannula Nasal Cannula Nasal Cannula O2 Flow Rate 8.0 8.0 8.0 8.0 01/26/20 01/26/20 01/26/20 01/26/20 17:46 17:58 19:00 20:00 Temp 101.9 102.7 101.9 102.7 Pulse 109 Resp 26 B/P (MAP) 144/67 (92) Pulse Ox 95 O2 Delivery Nasal Cannula NonRebreather Mask Nasal Cannula O2 Flow Rate 7.0 8.0 8.0 01/26/20 01/27/20 23:00 03:00 Temp 102.5 103.4 102.5 103.4 Pulse 82 105 Resp 24 20 B/P (MAP) 122/59 (80) 117/57 (77) Pulse Ox 98 96 O2 Delivery Nasal Cannula Nasal Cannula O2 Flow Rate 5.0 8.0 Intake and Output 01/26/20 01/26/20 01/27/20 15:00 23:00 07:00 Intake Total 1680 ml 0 ml Output Total 800 ml Balance 1680 ml -800 ml MALICK OSULLIVAN MD Jan 27, 2020 08:26
[2020-01-27 08:55] LABS: CALCIUM 8.2 mg/dL (8.5-10.1); CREATININE 0.5 mg/dL (0.6-1.0)
[2020-01-27 09:07] LABS: POTASSIUM 4.5 mmol/L (3.5-5.1)
[2020-01-27 09:37] LABS: BASO % 0 % (0-3); EOS % 0 % (0-3); HEMATOCRIT 39.4 % (36.0-47.0); HEMOGLOBIN 12.5 g/dL (12.0-15.5); LYMPH % 6 % (24-48); MEAN CORPUSCULAR HEMOGLOBIN 29 pg (25-35); MEAN CORPUSCULAR HGB CONC 32 g/dL (31-37); MEAN CORPUSCULAR VOLUME 92 fL (79-100); MONO # 0.3 x10^3/uL (0.0-1.1); MONO % 1 % (0-9); NEUT # 17.1 x10^3/uL (1.8-7.7); NEUT % 93 % (31-73); PLATELET COUNT 163 x10^3/uL (140-400); RED BLOOD COUNT 4.27 x10^6/uL (3.50-5.40); RED CELL DISTRIBUTION WIDTH 19.5 % (11.5-14.5); WHITE BLOOD COUNT 18.4 x10^3/uL (4.0-11.0)
[2020-01-27] MEDS: GLYCOPYRROLATE 1 MG TABLET PO SCH ×4 (09:45→20:09)
[2020-01-27] MEDS ORDERED: ONDANSETRON ODT 4 MG TAB.RAPDIS. PO PRN (09:45)
[2020-01-27] MEDS: OXYBUTYNIN CHLORIDE 5 MG TABLET PEG SCH ×2 (09:54→20:08)
[2020-01-27] MEDS: CYCLOBENZAPRINE 10 MG TABLET. PO SCH ×3 (09:54→20:08)
[2020-01-27] MEDS: POLYETHYLENE GLYCOL 3350 17 GM PACKET. PO SCH ×2 (09:54→20:08)
[2020-01-27] MEDS: ASPIRIN ENTERIC COATED 81 MG TABLET.DR. PO SCH (09:54)
[2020-01-27] MEDS: ACETAMINOPHEN 500 MG TABLET PO PRN ×2 (10:06→17:05)
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
[2020-01-27] MEDS ORDERED: NYSTATIN 100,000 UNIT/GM TOPICAL CREAM 15GM TUBE. TP PRN (10:30)
[2020-01-27] MEDS ORDERED: TRIAMCINOLONE ACETONIDE 0.1% TOPICAL CREAM 15GM TUBE. TP PRN (10:30)
[2020-01-27 11:00] VITALS: BP 122/53
[2020-01-27] MEDS ORDERED: HYDROXYCHLOROQUINE 200 MG TABLET PO SCH (11:00)
[2020-01-27] MEDS: HYDROXYCHLOROQUINE (PROGRAM) 200 MG TABLET PO SCH ×2 (11:46→20:09)
[2020-01-27] MEDS: AZITHROMYCIN 500 MG in IV NORMAL SALINE 250ML 250 ML IV SCH (11:47)
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
[2020-01-27 15:00] VITALS: BP 142/62
[2020-01-27] MEDS: MEROPENEM 500 MG in IV NORMAL SALINE 50ML 50 ML IV SCH (17:05)
[2020-01-27] MEDS: ENOXAPARIN 40 MG/0.4 ML SYRINGE. SQ SCH (17:05)
[2020-01-27 19:00] VITALS: BP 109/65
[2020-01-27] MEDS: SENNOSIDES 8.6 MG TABLET PO SCH (20:08)
[2020-01-27 23:00] VITALS: BP 115/57
[2020-01-28] MEDS: MEROPENEM 500 MG in IV NORMAL SALINE 50ML 50 ML IV SCH ×4 (00:01→17:29)
[2020-01-28] MEDS: DEXTROSE 50% 25 GM / 50ML DISP.SYRIN. IV PRN ×3 (00:02→18:05)
[2020-01-28] MEDS: ACETAMINOPHEN 500 MG TABLET PO PRN ×3 (01:26→13:03)
[2020-01-28 03:00] VITALS: BP 126/59
[2020-01-28] MEDS: IV NORMAL SALINE 1000ML BAG 1,000 ML IV SCH ×2 (05:34→17:28)
[2020-01-28 07:00] VITALS: BP 103/55
[2020-01-28] MEDS: GLYCOPYRROLATE 1 MG TABLET PO SCH ×4 (08:06→22:33)
[2020-01-28] MEDS: HYDROXYCHLOROQUINE (PROGRAM) 200 MG TABLET PO SCH ×2 (08:07→22:34)
[2020-01-28] MEDS: OXYBUTYNIN CHLORIDE 5 MG TABLET PEG SCH ×2 (08:07→22:34)
[2020-01-28] MEDS: CYCLOBENZAPRINE 10 MG TABLET. PO SCH ×3 (08:07→22:34)
[2020-01-28] MEDS: POLYETHYLENE GLYCOL 3350 17 GM PACKET. PO SCH ×2 (08:07→22:34)
[2020-01-28] MEDS: ASPIRIN ENTERIC COATED 81 MG TABLET.DR. PO SCH (08:07)
[2020-01-28] MEDS ORDERED: HYDROXYCHLOROQUINE 200 MG TABLET PO SCH (09:00)
--- NOTE | 2020-01-28 09:50 | PDOC ---
PROGRESS NOTES Chief Complaint Chief Complaint left basilar pneumonia - started on broad spectrum antibiotics, cultures obtained. covid -19 POSITIVE SEPSIS Transaminitis Advanced multiple sclerosis - bedbound, with contractures Anemia Constipation Dementia Neurogentic bladder - s/p suprapubic catheter Vit D def Dysphagia - maintained on g-tube feedings H/o multiple MDRO pneumonia and UTI infections COVID-19 CRITERIA: The patient was evaluated during the global COVID-19 pandemic, and that diagnosis was suspected/considered upon their initial presentation. Their evaluation, treatment and testing were consistent with current guidelines for patients who present with complaints or symptoms that may be related to COVID-19 History of Present Illness History of Present Illness Ms Diego is a 54yo F [facility] resident w/ PMHx advanced multiple sclerosis, Anemia, Constipation, Dementia, neurogentic bladder, vit D def, ataxia, dysphagia, multi ple MDRO pneumonia and UTI infections, bedbound, with contractures and maintained on g-tube feedings and suprapubic catheter who was brought to ED due to observed shortness of breath and exposure to SARS-CoV-2 positive patient. WBC elevated 13.7, Temp 103.5F and transaminases AST 50, ALT 71 as well as lactate 2.2 and hypoxic requiring 8L NCO2. Found on CXR with left basilar pneumonia, admitted for further care. 01/26: Not verbally responsive. Does not appear in distress. Labs improved. O2 improved. COVID19 positive Hypoglycemic to 46 overnight, corrected. J-tube feeds had not been initiated. Vitals Vitals Vital Signs Date Time Temp Pulse Resp B/P (MAP) Pulse Ox O2 Delivery O2 Flow Rate FiO2 01/28/20 08:00 Nasal Cannula 8.0 01/28/20 07:00 102.2 105 20 103/55 (71) 100 102.2 Physical Exam General: Cooperative, mild distress Lungs: Clear Abdomen: Normal bowel sounds Extremities: No cyanosis Labs LABS Laboratory Tests Test 01/27/20 12:07 01/27/20 18:20 01/27/20 18:43 01/27/20 23:53 Glucose (Fingerstick) 79 mg/dL (70-99) 46 mg/dL (70-99) 119 mg/dL (70-99) 60 mg/dL (70-99) Test 01/28/20 00:20 Glucose (Fingerstick) 101 mg/dL (70-99) Assessment and Plan Assessmemt and Plan Problems Medical Problems: (1) Fever Status: Acute (2) Left lower lobe pneumonia Status: Acute (3) Respiratory failure Status: Acute (4) Sepsis Status: Acute Comment Review of Relevant I have reviewed the following items jey (where applicable) has been applied. Labs Laboratory Tests Test 01/26/20 10:45 01/26/20 11:24 01/26/20 16:38 01/27/20 00:14 Urine Collection Type Unknown Urine Color Mindy Urine Clarity Clear Urine pH 7.0 (<5.0-8.0) Urine Specific [place] 1.025 (1.000-1.030) Urine Protein 100 mg/dL (NEG-TRACE) Urine Glucose (UA) Negative mg/dL (NEG) Urine Ketones (Stick) Negative mg/dL (NEG) Urine Blood Large (NEG) Urine Nitrite Negative (NEG) Urine Bilirubin Negative (NEG) Urine Urobilinogen Dipstick 1.0 mg/dL (0.2 mg/dL) Urine Leukocyte Esterase Moderate (NEG) Urine RBC 0 /HPF (0-2) Urine WBC 0 /HPF (0-4) Urine Squamous Epithelial Cells Occ /LPF Urine Bacteria 0 /HPF (0-FEW) White Blood Count 13.7 x10^3/uL (4.0-11.0) Red Blood Count 4.76 x10^6/uL (3.50-5.40) Hemoglobin 13.7 g/dL (12.0-15.5) Hematocrit 41.7 % (36.0-47.0) Mean Corpuscular Volume 88 fL (79-100) Mean Corpuscular Hemoglobin 29 pg (25-35) Mean Corpuscular Hemoglobin Concent 33 g/dL (31-37) Red Cell Distribution Width 18.2 % (11.5-14.5) Platelet Count 204 x10^3/uL (140-400) Neutrophils (%) (Auto) 92 % (31-73) Lymphocytes (%) (Auto) 4 % (24-48) Monocytes (%) (Auto) 3 % (0-9) Eosinophils (%) (Auto) 0 % (0-3) Basophils (%) (Auto) 1 % (0-3) Neutrophils # (Auto) 12.6 x10^3/uL (1.8-7.7) Lymphocytes # (Auto) 0.6 x10^3/uL (1.0-4.8) Monocytes # (Auto) 0.4 x10^3/uL (0.0-1.1) Eosinophils # (Auto) 0.0 x10^3/uL (0.0-0.7) Basophils # (Auto) 0.1 x10^3/uL (0.0-0.2) Segmented Neutrophils % 46 % (35-66) Band Neutrophils % 43 % (0-9) Lymphocytes % 6 % (24-48) Monocytes % 4 % (0-10) Metamyelocytes % 1 % (0-0) Toxic Vacuolation Slight Platelet Estimate Adequate (ADEQUATE) Polychromasia Slight Anisocytosis Slight Sodium Level 137 mmol/L (136-145) Potassium Level 3.8 mmol/L (3.5-5.1) Chloride Level 102 mmol/L (98-107) Carbon Dioxide Level 26 mmol/L (21-32) Anion Gap 9 (6-14) Blood Urea Nitrogen 22 mg/dL (7-20) Creatinine 0.7 mg/dL (0.6-1.0) Estimated GFR (Cockcroft-Gault) 105.1 BUN/Creatinine Ratio 31 (6-20) Glucose Level 126 mg/dL (70-99) Lactic Acid Level 2.0 mmol/L (0.4-2.0) Calcium Level 9.1 mg/dL (8.5-10.1) Total Bilirubin 0.4 mg/dL (0.2-1.0) Aspartate Amino Transf (AST/SGOT) 50 U/L (15-37) Alanine Aminotransferase (ALT/SGPT) 71 U/L (14-59) Alkaline Phosphatase 94 U/L (46-116) Creatine Kinase 191 U/L (26-192) Creatine Kinase MB (Mass) < 0.5 ng/mL (0.0-3.6) Creatine Kinase MB Relative Index 0.3 % (0-4) Total Protein 8.1 g/dL (6.4-8.2) Albumin 2.9 g/dL (3.4-5.0) Albumin/Globulin Ratio 0.6 (1.0-1.7) Procalcitonin 0.36 ng/mL (0.00-0.10) Coronavirus (COVID-19)(PCR) See separate report Glucose (Fingerstick) 92 mg/dL (70-99) 65 mg/dL (70-99) Test 01/27/20 01:13 01/27/20 03:45 01/27/20 08:32 01/27/20 12:07 Glucose (Fingerstick) 105 mg/dL (70-99) 79 mg/dL (70-99) Lactic Acid Level 2.2 mmol/L (0.4-2.0) 2.0 mmol/L (0.4-2.0) White Blood Count 18.4 x10^3/uL (4.0-11.0) Red Blood Count 4.27 x10^6/uL (3.50-5.40) Hemoglobin 12.5 g/dL (12.0-15.5) Hematocrit 39.4 % (36.0-47.0) Mean Corpuscular Volume 92 fL (79-100) Mean Corpuscular Hemoglobin 29 pg (25-35) Mean Corpuscular Hemoglobin Concent 32 g/dL (31-37) Red Cell Distribution Width 19.5 % (11.5-14.5) Platelet Count 163 x10^3/uL (140-400) Neutrophils (%) (Auto) 93 % (31-73) Lymphocytes (%) (Auto) 6 % (24-48) Monocytes (%) (Auto) 1 % (0-9) Eosinophils (%) (Auto) 0 % (0-3) Basophils (%) (Auto) 0 % (0-3) Neutrophils # (Auto) 17.1 x10^3/uL (1.8-7.7) Lymphocytes # (Auto) 1.0 x10^3/uL (1.0-4.8) Monocytes # (Auto) 0.3 x10^3/uL (0.0-1.1) Eosinophils # (Auto) 0.0 x10^3/uL (0.0-0.7) Basophils # (Auto) 0.0 x10^3/uL (0.0-0.2) Sodium Level 139 mmol/L (136-145) Potassium Level 4.5 mmol/L (3.5-5.1) Chloride Level 107 mmol/L (98-107) Carbon Dioxide Level 22 mmol/L (21-32) Anion Gap 10 (6-14) Blood Urea Nitrogen 16 mg/dL (7-20) Creatinine 0.5 mg/dL (0.6-1.0) Estimated GFR (Cockcroft-Gault) 155.0 Glucose Level 71 mg/dL (70-99) Calcium Level 8.2 mg/dL (8.5-10.1) Test 01/27/20 18:20 01/27/20 18:43 01/27/20 23:53 01/28/20 00:20 Glucose (Fingerstick) 46 mg/dL (70-99) 119 mg/dL (70-99) 60 mg/dL (70-99) 101 mg/dL (70-99) Laboratory Tests Test 01/27/20 12:07 01/27/20 18:20 01/27/20 18:43 01/27/20 23:53 Glucose (Fingerstick) 79 mg/dL (70-99) 46 mg/dL (70-99) 119 mg/dL (70-99) 60 mg/dL (70-99) Test 01/28/20 00:20 Glucose (Fingerstick) 101 mg/dL (70-99) Microbiology 01/27/20 Blood Culture - Preliminary, Resulted NO GROWTH AFTER 1 DAY Medications Current Medications Sodium Chloride 1,380 ml @ 1,380 mls/hr Q1H IV Last administered on 01/26/20at 11:34; Start 01/26/20 at 11:05; Stop 01/27/20 at 07:45; Status DC Piperacillin Sod/ Tazobactam Sod 4.5 gm/Sodium Chloride 100 ml @ 200 mls/hr 1X ONCE IV Last administered on 01/26/20at 13:19; Start 01/26/20 at 11:15; Stop 01/26/20 at 11:44; Status DC Azithromycin 250 ml @ 250 mls/hr 1X ONCE IV Last administered on 01/26/20at 11:41; Start 01/26/20 at 11:15; Stop 01/26/20 at 12:14; Status DC Acetaminophen (Tylenol Supp) 650 mg 1X ONCE [place] Last administered on 01/26/20at 11:45; Start 01/26/20 at 11:15; Stop 01/26/20 at 11:18; Status DC Ondansetron HCl (Zofran) 4 mg PRN Q8HRS PRN IV NAUSEA/VOMITING; Start 01/26/20 at 13:30; Stop 01/27/20 at 13:29; Status Cancel Azithromycin 250 ml @ 250 mls/hr DAILY07 IV ; Start 01/27/20 at 07:00; Status UNV Sodium Chloride (Normal Saline Flush) 3 ml QSHIFT PRN IV AFTER MEDS AND BLOOD DRAWS; Start 01/26/20 at 14:15; Stop 01/27/20 at 12:04; Status DC Sodium Chloride 1,000 ml @ 80 mls/hr [id number] IV Last administered on 01/28/20at 05:34; Start 01/26/20 at 14:14 Ondansetron HCl (Zofran) 4 mg PRN Q4HRS PRN IV NAUSEA/VOMITING; Start 01/26/20 at 14:15; Status Cancel Acetaminophen (Tylenol Supp) 650 mg PRN Q4HRS PRN [place] TEMP OVER 100.4F OR MILD PAIN; Start 01/26/20 at 14:15; Status Cancel Clonidine HCl (Catapres) 0.1 mg PRN Q6HRS PRN PO SBP>160 OR DBP>90; Start 01/26/20 at 14:15 Diphenhydramine HCl (Benadryl) 25 mg PRN Q4HRS PRN IVP ITCHING; Start 01/26/20 at 14:15 Docusate Sodium (Colace) 100 mg PRN BID PRN PO CONSTIPATION; Start 01/26/20 at 14:15 Albuterol/ Ipratropium (Duoneb) 3 ml Q4HRS W/A NEB ; Start 01/26/20 at 18:00; Stop 01/26/20 at 14:44; Status DC Guaifenesin (Robitussin) 200 mg PRN Q4HRS PRN PO COUGH; Start 01/26/20 at 14:15 Enoxaparin Sodium (Lovenox 40mg Syringe) 40 mg Q24H SQ Last administered on 01/27/20at 17:05; Start 01/26/20 at 17:00 Piperacillin Sod/ Tazobactam Sod 3.375 gm/Sodium Chloride 50 ml @ 100 mls/hr Q6HRS IV Last administered on 01/27/20at 11:47; Start 01/26/20 at 18:00; Stop 01/27/20 at 12:23; Status DC Albuterol/ Ipratropium (Duoneb) 3 ml PRN Q4HRS PRN NEB WHEEZING; Start 01/26/20 at 18:00; Status Cancel Azithromycin 500 mg/Sodium Chloride 250 ml @ 250 mls/hr Q24H IV Last administered on 01/27/20 11:47; Start 01/27/20 at 12:00; Stop 01/30/20 at 12:59 Sodium Chloride (Normal Saline Flush) 3 ml QSHIFT PRN IV AFTER MEDS AND BLOOD DRAWS; Start 01/26/20 at 15:30 Ondansetron HCl (Zofran) 4 mg PRN Q4HRS PRN IV NAUSEA/VOMITING; Start 01/26/20 at 15:30 Acetaminophen (Tylenol Supp) 650 mg PRN Q4HRS PRN [place] TEMP OVER 100.4F OR MILD PAIN; Start 01/26/20 at 15:30 Sodium Monofluorophosphate (Fleet Adult) 133 ml PRN DAILY PRN [place] CONSTIPATION; Start 01/26/20 at 15:30 Albuterol/ Ipratropium (Duoneb) 3 ml Q4HRS W/A NEB ; Start 01/26/20 at 18:00; Stop 01/26/20 at 15:51; Status DC Enoxaparin Sodium (Lovenox 40mg Syringe) 40 mg Q24H SQ ; Start 01/26/20 at 15:30; Status UNV Albuterol/ Ipratropium (Duoneb) 3 ml PRN Q4HRS PRN NEB WHEEZING Last administered on 01/26/20at 17:58; Start 01/26/20 at 16:00 Dextrose (Dextrose 50%-Water Syringe) 12.5 gm PRN Q15MIN PRN IV SEE COMMENTS Last administered on 01/28/20at 00:02; Start 01/27/20 at 00:30 Acetaminophen (Tylenol) 500 mg PRN Q4HRS PRN PO FEVER > 101 Last administered on 01/28/20 08:07; Start 01/27/20 at 09:45 Aspirin (Ecotrin) 81 mg DAILY PO Last administered on 01/28/20at 08:07; Start 01/27/20 at 10:00 Oxybutynin Chloride (Ditropan) 5 mg BID PEG Last administered on 01/28/20 08:07; Start 01/27/20 at 10:00 Polyethylene Glycol (miraLAX PACKET) 17 gm BID PO Last administered on 01/28/20at 08:07; Start 01/27/20 at 10:00 Sennosides (Senna) 8.6 mg HS PO Last administered on 01/27/20at 20:08; Start 01/27/20 at 21:00 Tramadol HCl (Ultram) 50 mg PRN Q6HRS PRN PO MILD TO MODERATE PAIN; Start 01/27/20 at 09:45 Cyclobenzaprine HCl (Flexeril) 10 mg TID PO Last administered on 01/28/20at 08:07; Start 01/27/20 at 09:45 Glycopyrrolate (Robinul) 1 mg QID PO Last administered on 01/28/20at 08:06; Start 01/27/20 at 10:00 Nystatin (Mycostatin) 1 sis PRN Q8HRS PRN TP ITCHING; Start 01/27/20 at 10:30 Ondansetron HCl (Zofran Odt) 4 mg PRN Q6HRS PRN PO NAUSEA/VOMITING; Start 01/27/20 at 09:45 Hydroxychloroquine Sulfate (Plaquenil) 200 mg BID PO ; Start 01/28/20 at 09:00; Stop 01/31/20 at 21:01; Status Cancel Hydroxychloroquine Sulfate (Plaquenil) 400 mg BID PO ; Start 01/27/20 at 11:00; Stop 01/27/20 at 21:01; Status Cancel Hydroxychloroquine Sulfate (Plaquenil (Med Program)) 400 mg BID PO Last administered on 01/27/20at 20:09; Start 01/27/20 at 11:00; Stop 01/27/20 at 21:01; Status DC Hydroxychloroquine Sulfate (Plaquenil (Med Program)) 200 mg BID PO Last administered on 01/28/20at 08:07; Start 01/28/20 at 09:00; Stop 01/31/20 at 21:01 Triamcinolone Acetonide (Kenalog 0.1%) 1 sis PRN TID PRN TP ITCHING; Start 01/27/20 at 10:30 Meropenem 500 mg/ Sodium Chloride 50 ml @ 100 mls/hr Q6HRS IV Last administered on 01/28/20at 06:03; Start 01/27/20 at 18:00 Active Scripts Active Reported Zofran (Ondansetron Hcl) 4 Mg Tablet 1 Tab PEG Q6HRS PRN Oxybutynin Chloride 5 Mg Tablet 5 Mg PEG BID Nystatin-Triamcinolone Cream (Nystatin/Triamcin) 15 Gm Cream..g. 1 Sis TP Q8H PRN apply to affected area topically every 8 hours as needed for yeast suprapubic ceja site and pannus Glycopyrrolate 1.5 Mg Tablet 1 Mg PO QID Tramadol Hcl 50 Mg Tablet 50 Mg PO Q6HRS PRN Tizanidine Hcl 4 Mg Tablet 6 Mg PO QID Senna (Sennosides) 8.6 Mg Tablet 8.6 Mg PO HS two tablets at bedtime, hold for loose stool Glycolax (Polyethylene Glycol 3350) 119 Gm Powder 17 Gm PO BID hold for loose stool Baclofen 20 Mg Tablet 1 Tab PO QID Aspir-Low (Aspirin) 81 Mg Tablet.dr 1 Tab PO DAILY Acetaminophen 500 Mg Tablet 1 Tab PO Q4HRS PRN Vitals/I & O Vital Sign - Last 24 Hours 01/27/20 01/27/20 01/27/20 01/27/20 11:00 15:00 19:00 20:15 Temp 101.3 102.6 102.3 101.3 102.6 102.3 Pulse 115 103 115 Resp 28 B/P (MAP) 122/53 (76) 142/62 (88) 109/65 (80) Pulse Ox 95 95 96 O2 Delivery Nasal Cannula Nasal Cannula Nasal Cannula O2 Flow Rate 8.0 8.0 5.0 01/27/20 01/28/20 01/28/20 01/28/20 23:00 03:00 07:00 08:00 Temp 103.3 102.4 102.2 103.3 102.4 102.2 Pulse 113 95 105 Resp 20 20 B/P (MAP) 115/57 (76) 126/59 (81) 103/55 (71) Pulse Ox 94 96 100 O2 Delivery Nasal Cannula Nasal Cannula O2 Flow Rate 8.0 8.0 Intake and Output 01/27/20 01/27/20 01/28/20 15:00 23:00 07:00 Intake Total 50 ml 120 ml 0 ml Output Total 400 ml 225 ml Balance 50 ml -280 ml -225 ml MALICK OSULLIVAN MD Jan 28, 2020 09:50
--- NOTE | 2020-01-28 10:16 | PDOC ---
PULMONARY PROGRESS NOTES Subjective Pt. is minimally verbal, continues to have high grade fevers, unable to clear her secretions, requiring lots of suctioning from nursing, had two episodes of hypoxia overnight, now on 8 liters N/C Vitals Vital Signs Date Time Temp Pulse Resp B/P (MAP) Pulse Ox O2 Delivery O2 Flow Rate FiO2 01/28/20 08:00 Nasal Cannula 8.0 01/28/20 07:00 102.2 105 20 103/55 (71) 100 102.2 Comments non-verbal unable to obtain General: No acute distress HEENT: Other Lungs: Crackles, Other (diminished) Cardiovascular: S1, S2 Abdomen: Soft, Non-tender Extremities: No Edema Skin: Warm Labs Laboratory Tests Test 01/26/20 10:45 01/26/20 11:24 01/26/20 16:38 01/27/20 00:14 Urine Collection Type Unknown Urine Color Mindy Urine Clarity Clear Urine pH 7.0 (<5.0-8.0) Urine Specific [place] 1.025 (1.000-1.030) Urine Protein 100 mg/dL (NEG-TRACE) Urine Glucose (UA) Negative mg/dL (NEG) Urine Ketones (Stick) Negative mg/dL (NEG) Urine Blood Large (NEG) Urine Nitrite Negative (NEG) Urine Bilirubin Negative (NEG) Urine Urobilinogen Dipstick 1.0 mg/dL (0.2 mg/dL) Urine Leukocyte Esterase Moderate (NEG) Urine RBC 0 /HPF (0-2) Urine WBC 0 /HPF (0-4) Urine Squamous Epithelial Cells Occ /LPF Urine Bacteria 0 /HPF (0-FEW) White Blood Count 13.7 x10^3/uL (4.0-11.0) Red Blood Count 4.76 x10^6/uL (3.50-5.40) Hemoglobin 13.7 g/dL (12.0-15.5) Hematocrit 41.7 % (36.0-47.0) Mean Corpuscular Volume 88 fL (79-100) Mean Corpuscular Hemoglobin 29 pg (25-35) Mean Corpuscular Hemoglobin Concent 33 g/dL (31-37) Red Cell Distribution Width 18.2 % (11.5-14.5) Platelet Count 204 x10^3/uL (140-400) Neutrophils (%) (Auto) 92 % (31-73) Lymphocytes (%) (Auto) 4 % (24-48) Monocytes (%) (Auto) 3 % (0-9) Eosinophils (%) (Auto) 0 % (0-3) Basophils (%) (Auto) 1 % (0-3) Neutrophils # (Auto) 12.6 x10^3/uL (1.8-7.7) Lymphocytes # (Auto) 0.6 x10^3/uL (1.0-4.8) Monocytes # (Auto) 0.4 x10^3/uL (0.0-1.1) Eosinophils # (Auto) 0.0 x10^3/uL (0.0-0.7) Basophils # (Auto) 0.1 x10^3/uL (0.0-0.2) Segmented Neutrophils % 46 % (35-66) Band Neutrophils % 43 % (0-9) Lymphocytes % 6 % (24-48) Monocytes % 4 % (0-10) Metamyelocytes % 1 % (0-0) Toxic Vacuolation Slight Platelet Estimate Adequate (ADEQUATE) Polychromasia Slight Anisocytosis Slight Sodium Level 137 mmol/L (136-145) Potassium Level 3.8 mmol/L (3.5-5.1) Chloride Level 102 mmol/L (98-107) Carbon Dioxide Level 26 mmol/L (21-32) Anion Gap 9 (6-14) Blood Urea Nitrogen 22 mg/dL (7-20) Creatinine 0.7 mg/dL (0.6-1.0) Estimated GFR (Cockcroft-Gault) 105.1 BUN/Creatinine Ratio 31 (6-20) Glucose Level 126 mg/dL (70-99) Lactic Acid Level 2.0 mmol/L (0.4-2.0) Calcium Level 9.1 mg/dL (8.5-10.1) Total Bilirubin 0.4 mg/dL (0.2-1.0) Aspartate Amino Transf (AST/SGOT) 50 U/L (15-37) Alanine Aminotransferase (ALT/SGPT) 71 U/L (14-59) Alkaline Phosphatase 94 U/L (46-116) Creatine Kinase 191 U/L (26-192) Creatine Kinase MB (Mass) < 0.5 ng/mL (0.0-3.6) Creatine Kinase MB Relative Index 0.3 % (0-4) Total Protein 8.1 g/dL (6.4-8.2) Albumin 2.9 g/dL (3.4-5.0) Albumin/Globulin Ratio 0.6 (1.0-1.7) Procalcitonin 0.36 ng/mL (0.00-0.10) Coronavirus (COVID-19)(PCR) See separate report Glucose (Fingerstick) 92 mg/dL (70-99) 65 mg/dL (70-99) Test 01/27/20 01:13 01/27/20 03:45 01/27/20 08:32 01/27/20 12:07 Glucose (Fingerstick) 105 mg/dL (70-99) 79 mg/dL (70-99) Lactic Acid Level 2.2 mmol/L (0.4-2.0) 2.0 mmol/L (0.4-2.0) White Blood Count 18.4 x10^3/uL (4.0-11.0) Red Blood Count 4.27 x10^6/uL (3.50-5.40) Hemoglobin 12.5 g/dL (12.0-15.5) Hematocrit 39.4 % (36.0-47.0) Mean Corpuscular Volume 92 fL (79-100) Mean Corpuscular Hemoglobin 29 pg (25-35) Mean Corpuscular Hemoglobin Concent 32 g/dL (31-37) Red Cell Distribution Width 19.5 % (11.5-14.5) Platelet Count 163 x10^3/uL (140-400) Neutrophils (%) (Auto) 93 % (31-73) Lymphocytes (%) (Auto) 6 % (24-48) Monocytes (%) (Auto) 1 % (0-9) Eosinophils (%) (Auto) 0 % (0-3) Basophils (%) (Auto) 0 % (0-3) Neutrophils # (Auto) 17.1 x10^3/uL (1.8-7.7) Lymphocytes # (Auto) 1.0 x10^3/uL (1.0-4.8) Monocytes # (Auto) 0.3 x10^3/uL (0.0-1.1) Eosinophils # (Auto) 0.0 x10^3/uL (0.0-0.7) Basophils # (Auto) 0.0 x10^3/uL (0.0-0.2) Sodium Level 139 mmol/L (136-145) Potassium Level 4.5 mmol/L (3.5-5.1) Chloride Level 107 mmol/L (98-107) Carbon Dioxide Level 22 mmol/L (21-32) Anion Gap 10 (6-14) Blood Urea Nitrogen 16 mg/dL (7-20) Creatinine 0.5 mg/dL (0.6-1.0) Estimated GFR (Cockcroft-Gault) 155.0 Glucose Level 71 mg/dL (70-99) Calcium Level 8.2 mg/dL (8.5-10.1) Test 01/27/20 18:20 01/27/20 18:43 01/27/20 23:53 01/28/20 00:20 Glucose (Fingerstick) 46 mg/dL (70-99) 119 mg/dL (70-99) 60 mg/dL (70-99) 101 mg/dL (70-99) Laboratory Tests Test 01/27/20 12:07 01/27/20 18:20 01/27/20 18:43 01/27/20 23:53 Glucose (Fingerstick) 79 mg/dL (70-99) 46 mg/dL (70-99) 119 mg/dL (70-99) 60 mg/dL (70-99) Test 01/28/20 00:20 Glucose (Fingerstick) 101 mg/dL (70-99) Medications Active Scripts Medications Dose Route/Sig Max Daily Dose Days Date Category Dose Instructions Zofran (Ondansetron Hcl) 4 Mg Tablet 1 Tab PEG Q6HRS PRN 06/12/19 Reported Oxybutynin Chloride 5 Mg Tablet 5 Mg PEG BID 06/12/19 Reported Nystatin-Triamcinolone Cream (Nystatin/Triamcin) 15 Gm Cream..g. 1 Sis TP Q8H PRN 06/12/19 Reported apply to affected area topically every 8 hours as needed for yeast suprapubic ceja site and pannus Glycopyrrolate 1.5 Mg Tablet 1 Mg PO QID 06/12/19 Reported Tramadol Hcl 50 Mg Tablet 50 Mg PO Q6HRS PRN 09/30/18 Reported Tizanidine Hcl 4 Mg Tablet 6 Mg PO QID 09/30/18 Reported Senna (Sennosides) 8.6 Mg Tablet 8.6 Mg PO HS 09/30/18 Reported two tablets at bedtime, hold for loose stool Glycolax (Polyethylene Glycol 3350) 119 Gm Powder 17 Gm PO BID 09/30/18 Reported hold for loose stool Baclofen 20 Mg Tablet 1 Tab PO QID 09/30/18 Reported Aspir-Low (Aspirin) 81 Mg Tablet.dr 1 Tab PO DAILY 09/30/18 Reported Acetaminophen 500 Mg Tablet 1 Tab PO Q4HRS PRN 09/30/18 Reported Impression . IMPRESSION: 1. Acute hypoxic respiratory failure secondary to suspected COVID pneumonia. 2. Abnormal chest x-ray with left lower lobe consolidation suggesting COVID pneumonia. A superimposed bacterial pneumonia would also be in the differential diagnosis. 3. Leukocytosis. 4. History of underlying MS with neurogenic bladder and dementia. Plan . RECOMMENDATIONS: 1. We will continue with present high flow oxygen, currently on 8 liters N/C 2. COVID-19 test positive 3. Continue broad-spectrum antibiotic. 4. continuePlaquenil. 5. We will monitor the response to treatment. 6. symptomatic treatment, of fever, cough and secretions Discussed with her mother (DPOA), code status and prognosis discussed now DNR BELÉN MAURER MD Jan 28, 2020 10:16
[2020-01-28 11:00] VITALS: BP 131/91
[2020-01-28] MEDS: AZITHROMYCIN 500 MG in IV NORMAL SALINE 250ML 250 ML IV SCH (11:51)
--- NOTE | 2020-01-28 11:55 | NUR ---
IP: Pt is COVID + requiring airborne/contact precautions using a face shield.
--- NOTE | 2020-01-28 12:21 | PDOC ---
Infectious Disease Note Subjective Subjective COVID-19 positive. Now in airborne precautions Unable to clear secretions s/p suctioning Worsening hypoxia requiring increase O2 requirements, now on 8L O2 Ongoing fevers ROS ROS unobtainable Vital Sign Vital Signs Vital Signs Date Time Temp Pulse Resp B/P (MAP) Pulse Ox O2 Delivery O2 Flow Rate FiO2 01/28/20 08:00 Nasal Cannula 8.0 01/28/20 07:00 102.2 105 20 103/55 (71) 100 102.2 Physical Exam PHYSICAL EXAM Hands on exam deferred. see pulm/PCP note Visually propped up in bed, eyes open, appears weak Breathing is nonlabored. 8L O2 via NC Heart rhythm regular SPT Labs Lab Laboratory Tests Test 01/27/20 18:20 01/27/20 18:43 01/27/20 23:53 01/28/20 00:20 Glucose (Fingerstick) 46 mg/dL (70-99) 119 mg/dL (70-99) 60 mg/dL (70-99) 101 mg/dL (70-99) Test 01/28/20 11:57 Glucose (Fingerstick) 67 mg/dL (70-99) Micro Microbiology 01/26/20 Blood Culture - Preliminary, Resulted NO GROWTH AFTER 1 DAY Objective Assessment Acute SARS-CoV-2. requiring high flow O2 Pneumonia Fever Leukocytosis Lactic acidosis Advance MS Ulcer about SPT insertion site - no signs of infection Neurogenic bladder treated with suprapubic cath Dysphasia - tube feedings h/o Enterobacter and PSAE long term resident Plan Plan of Care Azithromycin and plaquenil Continue empiric meropenem Maintain aspiration precautions Local wound care Supportive care Pulmonary following Airborne precautions Poor prognosis Now DNR D/w nursing Attending Co-Sign Visual exam done. The chart was reviewed. The case was discussed. Agree with the plan of care. ALBERTO ALEMAN APRN Jan 28, 2020 12:21 ELIUD RUANO MD Jan 28, 2020 13:02
[2020-01-28 15:00] VITALS: BP 109/55
[2020-01-28] MEDS: ENOXAPARIN 40 MG/0.4 ML SYRINGE. SQ SCH (17:29)
[2020-01-28 19:00] VITALS: BP 106/57
[2020-01-28] MEDS: SENNOSIDES 8.6 MG TABLET PO SCH (22:33)
[2020-01-28 23:00] VITALS: BP 105/56
[2020-01-29] MEDS: MEROPENEM 500 MG in IV NORMAL SALINE 50ML 50 ML IV SCH ×5 (00:27→23:41)
[2020-01-29] MEDS: DEXTROSE 50% 25 GM / 50ML DISP.SYRIN. IV PRN ×3 (02:20→19:08)
[2020-01-29 03:00] VITALS: BP 105/51
[2020-01-29] MEDS: IV NORMAL SALINE 1000ML BAG 1,000 ML IV SCH ×2 (06:09→20:55)
[2020-01-29 07:00] VITALS: BP 91/52
[2020-01-29] MEDS: HYDROXYCHLOROQUINE (PROGRAM) 200 MG TABLET PO SCH ×2 (09:45→20:55)
[2020-01-29] MEDS: GLYCOPYRROLATE 1 MG TABLET PO SCH ×4 (09:45→20:55)
[2020-01-29] MEDS: POLYETHYLENE GLYCOL 3350 17 GM PACKET. PO SCH ×2 (09:45→20:55)
[2020-01-29] MEDS: ASPIRIN ENTERIC COATED 81 MG TABLET.DR. PO SCH (09:45)
[2020-01-29] MEDS: OXYBUTYNIN CHLORIDE 5 MG TABLET PEG SCH ×2 (09:45→20:55)
[2020-01-29] MEDS: CYCLOBENZAPRINE 10 MG TABLET. PO SCH ×3 (09:45→20:57)
--- NOTE | 2020-01-29 10:25 | NUR ---
SW following. Discussed with RN, pt from [place]. Pt has positive COVID-19, 7L NC. Pt is apparently not doing too well. SW will continue to follow.
[2020-01-29 11:00] VITALS: BP 105/55
--- NOTE | 2020-01-29 11:45 | PDOC ---
PULMONARY PROGRESS NOTES Subjective Pt. is minimally verbal, continues to have high grade fevers, unable to clear her secretions, requiring lots of suctioning from nursing, had two episodes of hypoxia overnight, now on 8 liters N/C Vitals Vital Signs Date Time Temp Pulse Resp B/P (MAP) Pulse Ox O2 Delivery O2 Flow Rate FiO2 01/29/20 07:00 100.3 85 91/52 (65) 100 Nasal Cannula 7.0 100.3 01/29/20 03:00 22 Comments non-verbal unable to obtain General: No acute distress HEENT: Other Lungs: Crackles Cardiovascular: S1, S2 Abdomen: Soft, Non-tender Extremities: No Edema Skin: Warm Labs Laboratory Tests Test 01/27/20 12:07 01/27/20 18:20 01/27/20 18:43 01/27/20 23:53 Glucose (Fingerstick) 79 mg/dL (70-99) 46 mg/dL (70-99) 119 mg/dL (70-99) 60 mg/dL (70-99) Test 01/28/20 00:20 01/28/20 11:57 01/28/20 12:29 01/28/20 17:49 Glucose (Fingerstick) 101 mg/dL (70-99) 67 mg/dL (70-99) 138 mg/dL (70-99) 50 mg/dL (70-99) Test 01/28/20 17:59 01/29/20 02:13 Glucose (Fingerstick) 230 mg/dL (70-99) 65 mg/dL (70-99) Laboratory Tests Test 01/28/20 11:57 01/28/20 12:29 01/28/20 17:49 01/28/20 17:59 Glucose (Fingerstick) 67 mg/dL (70-99) 138 mg/dL (70-99) 50 mg/dL (70-99) 230 mg/dL (70-99) Test 01/29/20 02:13 Glucose (Fingerstick) 65 mg/dL (70-99) Medications Active Scripts Medications Dose Route/Sig Max Daily Dose Days Date Category Dose Instructions Zofran (Ondansetron Hcl) 4 Mg Tablet 1 Tab PEG Q6HRS PRN 06/12/19 Reported Oxybutynin Chloride 5 Mg Tablet 5 Mg PEG BID 06/12/19 Reported Nystatin-Triamcinolone Cream (Nystatin/Triamcin) 15 Gm Cream..g. 1 Sis TP Q8H PRN 06/12/19 Reported apply to affected area topically every 8 hours as needed for yeast suprapubic ceja site and pannus Glycopyrrolate 1.5 Mg Tablet 1 Mg PO QID 06/12/19 Reported Tramadol Hcl 50 Mg Tablet 50 Mg PO Q6HRS PRN 09/30/18 Reported Tizanidine Hcl 4 Mg Tablet 6 Mg PO QID 09/30/18 Reported Senna (Sennosides) 8.6 Mg Tablet 8.6 Mg PO HS 09/30/18 Reported two tablets at bedtime, hold for loose stool Glycolax (Polyethylene Glycol 3350) 119 Gm Powder 17 Gm PO BID 09/30/18 Reported hold for loose stool Baclofen 20 Mg Tablet 1 Tab PO QID 09/30/18 Reported Aspir-Low (Aspirin) 81 Mg Tablet.dr 1 Tab PO DAILY 09/30/18 Reported Acetaminophen 500 Mg Tablet 1 Tab PO Q4HRS PRN 09/30/18 Reported Impression . IMPRESSION: 1. Acute hypoxic respiratory failure secondary to suspected COVID pneumonia. 2. Abnormal chest x-ray with left lower lobe consolidation suggesting COVID pneumonia. A superimposed bacterial pneumonia would also be in the differential diagnosis. 3. Leukocytosis. 4. History of underlying MS with neurogenic bladder and dementia. Plan . RECOMMENDATIONS: 1. We will continue with present high flow oxygen, currently on 8 liters N/C 2. COVID-19 test positive 3. Continue broad-spectrum antibiotic. 4. continuePlaquenil. 5. We will monitor the response to treatment. 6. symptomatic treatment, of fever, cough and secretions 7. Prognosis poor Discussed with her mother (DPOA), code status and prognosis discussed now DNR BELÉN MAURER MD Jan 29, 2020 11:45
--- NOTE | 2020-01-29 12:08 | PDOC ---
[employer] PROGRESS NOTE Chief Complaint Chief Complaint left basilar pneumonia - started on broad spectrum antibiotics, cultures obtained. covid -19 POSITIVE SEPSIS Transaminitis Advanced multiple sclerosis - bedbound, with contractures Anemia Constipation Dementia Neurogentic bladder - s/p suprapubic catheter Vit D def Dysphagia - maintained on g-tube feedings H/o multiple MDRO pneumonia and UTI infections COVID-19 CRITERIA: The patient was evaluated during the global COVID-19 pandemic, and that diagnosis was suspected/considered upon their initial presentation. Their evaluation, treatment and testing were consistent with current guidelines for patients who present with complaints or symptoms that may be related to COVID-19 History of Present Illness History of Present Illness [id number] Patient seen and examined He has very coarse breath sounds even at the bedside without a prescription Chart reviewed Discussed with RN She is very ill Ms Diego is a 54yo F SNF resident w/ PMHx advanced multiple sclerosis, Anemia, Constipation, Dementia, neurogentic bladder, vit D def, ataxia, dysphagia, multiple MDRO pneumonia and UTI infections, bedbound, with contractures and maintained on g-tube feedings and suprapubic catheter who was brought to ED due to observed shortness of breath and exposure to SARS-CoV-2 positive patient. WBC elevated 13.7, Temp 103.5F and transaminases AST 50, ALT 71 as well as lactate 2.2 and hypoxic requiring 8L NCO2. Found on CXR with left basilar pneumonia, admitted for further care. 01/26: Not verbally responsive. Does not appear in distress. Labs improved. O2 improved. COVID19 positive Hypoglycemic to 46 overnight, corrected. J-tube feeds had not been initiated. Vitals/I&O Vitals/I&O: Vital Signs Date Time Temp Pulse Resp B/P (MAP) Pulse Ox O2 Delivery O2 Flow Rate FiO2 01/29/20 11:00 100.5 92 105/55 (72) 98 Nasal Cannula 7.0 100.5 01/29/20 03:00 22 I & O 01/28/20 01/28/20 01/29/20 15:00 23:00 07:00 Intake Total 0 ml Output Total 400 ml 150 ml 175 ml Balance -400 ml -150 ml -175 ml Physical Exam Physical Exam: Visually propped up in bed, eyes open, appears weak Breathing labored and course Heart rhythm regular SPT General: Cooperative, moderate distress Heart: Regular rate, Normal S1 Lungs: Wheezing (course breath sounds with wheezing), Crackles, Other Abdomen: Normal bowel sounds Extremities: No cyanosis Labs Labs: Laboratory Tests Test 01/28/20 12:29 01/28/20 17:49 01/28/20 17:59 01/29/20 02:13 Glucose (Fingerstick) 138 mg/dL (70-99) 50 mg/dL (70-99) 230 mg/dL (70-99) 65 mg/dL (70-99) Test 01/29/20 11:44 Glucose (Fingerstick) 70 mg/dL (70-99) Assessment and Plan Assessmemt and Plan Problems Medical Problems: (1) Fever Status: Acute (2) Left lower lobe pneumonia Status: Acute (3) Respiratory failure Status: Acute (4) Sepsis Status: Acute left basilar pneumonia - started on broad spectrum antibiotics, cultures obtained. covid -19 POSITIVE SEPSIS Transaminitis Advanced multiple sclerosis - bedbound, with contractures Anemia Constipation Dementia Neurogentic bladder - s/p suprapubic catheter Vit D def Dysphagia - maintained on g-tube feedings H/o multiple MDRO pneumonia and UTI infections COVID-19 CRITERIA: The patient was evaluated during the global COVID-19 pandemic, and that diagnosis was suspected/considered upon their initial presentation. Their evaluation, treatment and testing were consistent with current guidelines for patients who present with complaints or symptoms that may be related to COVID-19 Acute hypoxic respiratory failure secondary to suspected COVID pneumonia. Abnormal chest x-ray with left lower lobe consolidation suggesting COVID pneumonia. A superimposed bacterial pneumonia would also be in the differential diagnosis. Leukocytosis. History of underlying MS with neurogenic bladder and dementia Plan IV antibiotics Duo nebs Home meds DVT prophylaxis DNR Appreciate subspecialist input We will continue with present high flow oxygen, currently on 8 liters N/C COVID-19 test positive Continue broad-spectrum antibiotic. ContinuePlaquenil. We will monitor the response to treatment. Symptomatic treatment, of fever, cough and secretions Prognosis poor Total time 34 minutes Comment Review of Relevant I have reviewed the following items jey (where applicable) has been applied. LONDON VINES III DO Jan 29, 2020 12:08
[2020-01-29] MEDS: AZITHROMYCIN 500 MG in IV NORMAL SALINE 250ML 250 ML IV SCH (12:52)
--- NOTE | 2020-01-29 13:44 | PDOC ---
Infectious Disease Note Subjective: Subjective COVID-19 positive. Unable to clear secretions s/p suctioning Ongoing fevers T max 102 still weak Vital Signs: Vital Signs Vital Signs Date Time Temp Pulse Resp B/P (MAP) Pulse Ox O2 Delivery O2 Flow Rate FiO2 01/29/20 11:00 100.5 92 105/55 (72) 98 Nasal Cannula 7.0 100.5 01/29/20 03:00 22 Physical Exam: PHYSICAL EXAM Visually propped up in bed, eyes open, appears weak Breathing labored and course Heart rhythm regular SPT Medications: Inpatient Meds: Current Medications Medications (Trade) Dose Ordered Sig/Jayna Start Time Stop Time Status Last Admin Dose Admin Acetaminophen (Tylenol Supp) 650 mg PRN Q4HRS PRN 01/26/20 15:30 Acetaminophen (Tylenol) 500 mg PRN Q4HRS PRN 01/27/20 09:45 01/28/20 13:03 500 MG Albuterol/ Ipratropium (Duoneb) 3 ml PRN Q4HRS PRN 01/26/20 16:00 01/26/20 17:58 3 ML Aspirin (Ecotrin) 81 mg DAILY 01/27/20 10:00 01/29/20 09:45 81 MG Azithromycin 250 ml @ 250 mls/hr DAILY07 01/27/20 07:00 UNV Azithromycin 500 mg/Sodium Chloride 250 ml @ 250 mls/hr Q24H 01/27/20 12:00 01/30/20 12:59 01/29/20 12:52 250 MLS/HR Clonidine HCl (Catapres) 0.1 mg PRN Q6HRS PRN 01/26/20 14:15 Cyclobenzaprine HCl (Flexeril) 10 mg TID 01/27/20 09:45 01/29/20 12:54 10 MG Dextrose (Dextrose 50%-Water Syringe) 12.5 gm PRN Q15MIN PRN 01/27/20 00:30 01/29/20 02:20 12.5 GM Diphenhydramine HCl (Benadryl) 25 mg PRN Q4HRS PRN 01/26/20 14:15 Docusate Sodium (Colace) 100 mg PRN BID PRN 01/26/20 14:15 Enoxaparin Sodium (Lovenox 40mg Syringe) 40 mg Q24H 01/26/20 15:30 UNV Glycopyrrolate (Robinul) 1 mg QID 01/27/20 10:00 01/29/20 12:54 1 MG Guaifenesin (Robitussin) 200 mg PRN Q4HRS PRN 01/26/20 14:15 Hydroxychloroquine Sulfate (Plaquenil (Med Program)) 200 mg BID 01/28/20 09:00 01/31/20 21:01 01/29/20 09:45 200 MG Hydroxychloroquine Sulfate (Plaquenil) 400 mg BID 01/27/20 11:00 01/27/20 21:01 Cancel Meropenem 500 mg/ Sodium Chloride 50 ml @ 100 mls/hr Q6HRS 01/27/20 18:00 01/29/20 11:34 100 MLS/HR Nystatin (Mycostatin) 1 juni PRN Q8HRS PRN 01/27/20 10:30 Ondansetron HCl (Zofran Odt) 4 mg PRN Q6HRS PRN 01/27/20 09:45 Ondansetron HCl (Zofran) 4 mg PRN Q4HRS PRN 01/26/20 15:30 Oxybutynin Chloride (Ditropan) 5 mg BID 01/27/20 10:00 01/29/20 09:45 5 MG Piperacillin Sod/ Tazobactam Sod 3.375 gm/Sodium Chloride 50 ml @ 100 mls/hr Q6HRS 01/26/20 18:00 01/27/20 12:23 DC 01/27/20 11:47 100 MLS/HR Piperacillin Sod/ Tazobactam Sod 4.5 gm/Sodium Chloride 100 ml @ 200 mls/hr 1X ONCE 01/26/20 11:15 01/26/20 11:44 DC 01/26/20 13:19 200 MLS/HR Polyethylene Glycol (miraLAX PACKET) 17 gm BID 01/27/20 10:00 01/29/20 09:45 17 GM Sennosides (Senna) 8.6 mg HS 01/27/20 21:00 01/28/20 22:33 8.6 MG Sodium Monofluorophosphate (Fleet Adult) 133 ml PRN DAILY PRN 01/26/20 15:30 Sodium Chloride (Normal Saline Flush) 3 ml QSHIFT PRN 01/26/20 15:30 Tramadol HCl (Ultram) 50 mg PRN Q6HRS PRN 01/27/20 09:45 Triamcinolone Acetonide (Kenalog 0.1%) 1 juni PRN TID PRN 01/27/20 10:30 Labs: Lab Laboratory Tests Test 01/28/20 17:49 01/28/20 17:59 01/29/20 02:13 01/29/20 11:44 Glucose (Fingerstick) 50 mg/dL (70-99) 230 mg/dL (70-99) 65 mg/dL (70-99) 70 mg/dL (70-99) Objective: Assessment: Acute SARS-CoV-2. requiring high flow O2 Pneumonia Fever Leukocytosis Lactic acidosis Advance MS Ulcer about SPT insertion site - no signs of infection Neurogenic bladder treated with suprapubic cath Dysphasia - tube feedings h/o Enterobacter and PSAE [facility] resident Plan: Plan of Care Azithromycin and plaquenil Continue empiric meropenem Maintain aspiration precautions Local wound care Supportive care Pulmonary following Airborne precautions Poor prognosis Now DNR D/w nursing ELIUD RUANO MD Jan 29, 2020 13:44
[2020-01-29 15:00] VITALS: BP 131/60
[2020-01-29] MEDS: ENOXAPARIN 40 MG/0.4 ML SYRINGE. SQ SCH (17:50)
[2020-01-29 19:00] VITALS: BP 94/51
--- NOTE | 2020-01-29 19:09 | NUR ---
1 amp dextrose administer at 1830. Entered incorrect amt when scanning initially.
[2020-01-29] MEDS: SENNOSIDES 8.6 MG TABLET PO SCH (20:55)
[2020-01-29 23:00] VITALS: BP 125/66
[2020-01-29] MEDS: ACETAMINOPHEN 500 MG TABLET PO PRN (23:41)
[2020-01-30 03:00] VITALS: BP 101/56
[2020-01-30] MEDS: IV NORMAL SALINE 1000ML BAG 1,000 ML IV SCH ×2 (05:44→20:16)
[2020-01-30] MEDS: MEROPENEM 500 MG in IV NORMAL SALINE 50ML 50 ML IV SCH ×4 (06:17→23:14)
[2020-01-30 07:00] VITALS: BP 90/54
[2020-01-30] MEDS: OXYBUTYNIN CHLORIDE 5 MG TABLET PEG SCH ×2 (08:08→20:14)
[2020-01-30] MEDS: HYDROXYCHLOROQUINE (PROGRAM) 200 MG TABLET PO SCH ×2 (08:08→20:14)
[2020-01-30] MEDS: ASPIRIN ENTERIC COATED 81 MG TABLET.DR. PO SCH (08:08)
[2020-01-30] MEDS: CYCLOBENZAPRINE 10 MG TABLET. PO SCH ×3 (08:08→17:14)
[2020-01-30] MEDS: POLYETHYLENE GLYCOL 3350 17 GM PACKET. PO SCH ×2 (08:08→20:14)
[2020-01-30] MEDS: GLYCOPYRROLATE 1 MG TABLET PO SCH ×4 (09:00→20:14)
--- NOTE | 2020-01-30 09:53 | NUR ---
SW following. Discussed with RN, pt from [facility], pt requiring 7L oxygen. RN advised pt is very sick. SW will continue to follow.
[2020-01-30 10:40] VITALS: BP 94/53
--- NOTE | 2020-01-30 10:54 | PDOC ---
Infectious Disease Note Subjective: Subjective COVID-19 positive. Ongoing fevers T max 102 little more alert but still weak Vital Signs: Vital Signs Vital Signs Date Time Temp Pulse Resp B/P (MAP) Pulse Ox O2 Delivery O2 Flow Rate FiO2 01/30/20 10:40 100.1 92 94/53 (67) 90 Nasal Cannula 7.0 100.1 Physical Exam: PHYSICAL EXAM Visually propped up in bed, eyes open, appears weak Breathing labored and course Heart rhythm regular SPT Medications: Inpatient Meds: Current Medications Medications (Trade) Dose Ordered Sig/Jayna Start Time Stop Time Status Last Admin Dose Admin Acetaminophen (Tylenol Supp) 650 mg PRN Q4HRS PRN 01/26/20 15:30 Acetaminophen (Tylenol) 500 mg PRN Q4HRS PRN 01/27/20 09:45 01/29/20 23:41 500 MG Albuterol/ Ipratropium (Duoneb) 3 ml PRN Q4HRS PRN 01/26/20 16:00 01/26/20 17:58 3 ML Aspirin (Ecotrin) 81 mg DAILY 01/27/20 10:00 01/30/20 08:08 81 MG Azithromycin 250 ml @ 250 mls/hr DAILY07 01/27/20 07:00 UNV Azithromycin 500 mg/Sodium Chloride 250 ml @ 250 mls/hr Q24H 01/27/20 12:00 01/30/20 12:59 01/29/20 12:52 250 MLS/HR Clonidine HCl (Catapres) 0.1 mg PRN Q6HRS PRN 01/26/20 14:15 Cyclobenzaprine HCl (Flexeril) 10 mg TID 01/27/20 09:45 01/30/20 08:08 10 MG Dextrose (Dextrose 50%-Water Syringe) 12.5 gm PRN Q15MIN PRN 01/27/20 00:30 01/29/20 19:08 25 GM Diphenhydramine HCl (Benadryl) 25 mg PRN Q4HRS PRN 01/26/20 14:15 Docusate Sodium (Colace) 100 mg PRN BID PRN 01/26/20 14:15 Enoxaparin Sodium (Lovenox 40mg Syringe) 40 mg Q24H 01/26/20 15:30 UNV Glycopyrrolate (Robinul) 1 mg QID 01/27/20 10:00 01/29/20 20:55 1 MG Guaifenesin (Robitussin) 200 mg PRN Q4HRS PRN 01/26/20 14:15 Hydroxychloroquine Sulfate (Plaquenil (Med Program)) 200 mg BID 01/28/20 09:00 01/31/20 21:01 01/30/20 08:08 200 MG Hydroxychloroquine Sulfate (Plaquenil) 400 mg BID 01/27/20 11:00 01/27/20 21:01 Cancel Meropenem 500 mg/ Sodium Chloride 50 ml @ 100 mls/hr Q6HRS 01/27/20 18:00 01/30/20 06:17 100 MLS/HR Nystatin (Mycostatin) 1 juni PRN Q8HRS PRN 01/27/20 10:30 Ondansetron HCl (Zofran Odt) 4 mg PRN Q6HRS PRN 01/27/20 09:45 Ondansetron HCl (Zofran) 4 mg PRN Q4HRS PRN 01/26/20 15:30 Oxybutynin Chloride (Ditropan) 5 mg BID 01/27/20 10:00 01/30/20 08:08 5 MG Piperacillin Sod/ Tazobactam Sod 3.375 gm/Sodium Chloride 50 ml @ 100 mls/hr Q6HRS 01/26/20 18:00 01/27/20 12:23 DC 01/27/20 11:47 100 MLS/HR Piperacillin Sod/ Tazobactam Sod 4.5 gm/Sodium Chloride 100 ml @ 200 mls/hr 1X ONCE 01/26/20 11:15 01/26/20 11:44 DC 01/26/20 13:19 200 MLS/HR Polyethylene Glycol (miraLAX PACKET) 17 gm BID 01/27/20 10:00 01/30/20 08:08 17 GM Sennosides (Senna) 8.6 mg HS 01/27/20 21:00 01/29/20 20:55 8.6 MG Sodium Monofluorophosphate (Fleet Adult) 133 ml PRN DAILY PRN 01/26/20 15:30 Sodium Chloride (Normal Saline Flush) 3 ml QSHIFT PRN 01/26/20 15:30 Tramadol HCl (Ultram) 50 mg PRN Q6HRS PRN 01/27/20 09:45 Triamcinolone Acetonide (Kenalog 0.1%) 1 juni PRN TID PRN 01/27/20 10:30 Labs: Lab Laboratory Tests Test 01/29/20 11:44 01/29/20 18:24 01/29/20 19:15 01/30/20 00:46 Glucose (Fingerstick) 70 mg/dL (70-99) 39 mg/dL (70-99) 87 mg/dL (70-99) 97 mg/dL (70-99) Test 01/30/20 06:43 Glucose (Fingerstick) 80 mg/dL (70-99) Objective: Assessment: Acute SARS-CoV-2. requiring high flow O2 Pneumonia Fever Leukocytosis Lactic acidosis Advance MS Ulcer about SPT insertion site - no signs of infection Neurogenic bladder treated with suprapubic cath Dysphasia - tube feedings h/o Enterobacter and PSAE half-way resident Plan: Plan of Care Azithromycin and plaquenil Continue empiric meropenem Maintain aspiration precautions Local wound care Supportive care Airborne precautions repeat labs in am bc neg so far Poor prognosis DNR D/w nursing ELIUD RUANO MD Jan 30, 2020 10:54
--- NOTE | 2020-01-30 12:31 | PDOC ---
[employer] PROGRESS NOTE Chief Complaint Chief Complaint Left basilar pneumonia - started on broad spectrum antibiotics, cultures obtained. covid -19 POSITIVE SEPSIS Transaminitis Advanced multiple sclerosis - bedbound, with contractures Anemia Constipation Dementia Neurogentic bladder - s/p suprapubic catheter Vit D def Dysphagia - maintained on g-tube feedings H/o multiple MDRO pneumonia and UTI infections COVID-19 CRITERIA: The patient was evaluated during the global COVID-19 pandemic, and that diagnosis was suspected/considered upon their initial presentation. Their evaluation, treatment and testing were consistent with current guidelines for patients who present with complaints or symptoms that may be related to COVID-19 History of Present Illness History of Present Illness 01-30-2020 Patient seen and examined on the Covid-19 unit She is in respiratory isolation Very sick with labored coarse breath sounds Poor long-term prognosis as she has advanced multiple sclerosis as well Chart reviewed Discussed with RN [id number] Patient seen and examined He has very coarse breath sounds even at the bedside without a prescription Chart reviewed Discussed with RN She is very ill Ms Diego is a 54yo F SNF resident w/ PMHx advanced multiple sclerosis, Anemia, Constipation, Dementia, neurogentic bladder, vit D def, ataxia, dysphagia, multiple MDRO pneumonia and UTI infections, bedbound, with contractures and maintained on g-tube feedings and suprapubic catheter who was brought to ED due to observed shortness of breath and exposure to SARS-CoV-2 positive patient. WBC elevated 13.7, Temp 103.5F and transaminases AST 50, ALT 71 as well as lactate 2.2 and hypoxic requiring 8L NCO2. Found on CXR with left basilar pneumonia, admitted for further care. 01/26: Not verbally responsive. Does not appear in distress. Labs improved. O2 improved. COVID19 positive Hypoglycemic to 46 overnight, corrected. J-tube feeds had not been initiated. Vitals/I&O Vitals/I&O: Vital Signs Date Time Temp Pulse Resp B/P (MAP) Pulse Ox O2 Delivery O2 Flow Rate FiO2 01/30/20 10:40 100.1 92 94/53 (67) 90 Nasal Cannula 7.0 100.1 I & O 01/29/20 01/29/20 01/30/20 15:00 23:00 07:00 Intake Total 300 ml 1283 ml 100 ml Output Total 450 ml 200 ml 750 ml Balance -150 ml 1083 ml -650 ml Physical Exam General: Cooperative, moderate distress Heart: Regular rate, Normal S1 Lungs: Wheezing (course breath sounds with wheezing), Crackles, Other Abdomen: Normal bowel sounds Extremities: No cyanosis Labs Labs: Laboratory Tests Test 01/29/20 18:24 01/29/20 19:15 01/30/20 00:46 01/30/20 06:43 Glucose (Fingerstick) 39 mg/dL (70-99) 87 mg/dL (70-99) 97 mg/dL (70-99) 80 mg/dL (70-99) Test 01/30/20 11:48 Glucose (Fingerstick) 93 mg/dL (70-99) Assessment and Plan Assessmemt and Plan Problems Medical Problems: (1) Fever Status: Acute (2) Left lower lobe pneumonia Status: Acute (3) Respiratory failure Status: Acute (4) Sepsis Status: Acute Acute left basilar pneumonia - started on broad spectrum antibiotics, cultures obtained. covid -19 POSITIVE SEPSIS Transaminitis Advanced multiple sclerosis - bedbound, with contractures Anemia Constipation Dementia Neurogentic bladder - s/p suprapubic catheter Vit D def Dysphagia - maintained on g-tube feedings H/o multiple MDRO pneumonia and UTI infections COVID-19 CRITERIA: The patient was evaluated during the global COVID-19 szymanski demic, and that diagnosis was suspected/considered upon their initial presentation. Their evaluation, treatment and testing were consistent with current guidelines for patients who present with complaints or symptoms that may be related to COVID-19 Acute hypoxic respiratory failure secondary to suspected COVID pneumonia. Abnormal chest x-ray with left lower lobe consolidation suggesting COVID pneumonia. A superimposed bacterial pneumonia would also be in the differential diagnosis. Leukocytosis. History of underlying MS with neurogenic bladder and dementia Plan IV antibiotics Duo nebs Home meds DVT prophylaxis DNR Appreciate subspecialist input We will continue with present high flow oxygen, currently on 8 liters N/C COVID-19 test positive Continue broad-spectrum antibiotic. ContinuePlaquenil. We will monitor the response to treatment. Symptomatic treatment, of fever, cough and secretions Prognosis poor COVID-19 CRITERIA: The patient was evaluated during the global COVID-19 pandemic, and that diagnosis was suspected/considered upon their initial presentation. Their evaluation, treatment and testing was consistent with current guidelines for patients who present with complaints or symptoms that may be related to COVID-19. Total time 32 minutes Comment Review of Relevant I have reviewed the following items jey (where applicable) has been applied. LONDON VINES III DO Jan 30, 2020 12:31
[2020-01-30] MEDS: traMADol 50 MG TABLET PO PRN ×2 (12:57→20:15)
[2020-01-30 14:50] VITALS: BP 92/57
[2020-01-30] MEDS: ENOXAPARIN 40 MG/0.4 ML SYRINGE. SQ SCH (17:14)
--- NOTE | 2020-01-30 17:16 | PDOC ---
PULMONARY PROGRESS NOTES Subjective Patient with no respiratory distress Vitals Vital Signs Date Time Temp Pulse Resp B/P (MAP) Pulse Ox O2 Delivery O2 Flow Rate FiO2 01/30/20 14:50 99.7 89 92/57 (69) 91 Nasal Cannula 7.0 99.7 01/30/20 13:57 18 Comments non-verbal unable to obtain General: No acute distress HEENT: Other Lungs: Wheezing (course breath sounds with wheezing), Crackles, Other Cardiovascular: S1, S2 Abdomen: Soft, Non-tender Extremities: No Edema Skin: Warm Labs Laboratory Tests Test 01/28/20 17:49 01/28/20 17:59 01/29/20 02:13 01/29/20 11:44 Glucose (Fingerstick) 50 mg/dL (70-99) 230 mg/dL (70-99) 65 mg/dL (70-99) 70 mg/dL (70-99) Test 01/29/20 18:24 01/29/20 19:15 01/30/20 00:46 01/30/20 06:43 Glucose (Fingerstick) 39 mg/dL (70-99) 87 mg/dL (70-99) 97 mg/dL (70-99) 80 mg/dL (70-99) Test 01/30/20 11:48 Glucose (Fingerstick) 93 mg/dL (70-99) Laboratory Tests Test 01/29/20 18:24 01/29/20 19:15 01/30/20 00:46 01/30/20 06:43 Glucose (Fingerstick) 39 mg/dL (70-99) 87 mg/dL (70-99) 97 mg/dL (70-99) 80 mg/dL (70-99) Test 01/30/20 11:48 Glucose (Fingerstick) 93 mg/dL (70-99) Medications Active Scripts Medications Dose Route/Sig Max Daily Dose Days Date Category Dose Instructions Zofran (Ondansetron Hcl) 4 Mg Tablet 1 Tab PEG Q6HRS PRN 06/12/19 Reported Oxybutynin Chloride 5 Mg Tablet 5 Mg PEG BID 06/12/19 Reported Nystatin-Triamcinolone Cream (Nystatin/Triamcin) 15 Gm Cream..g. 1 Sis TP Q8H PRN 06/12/19 Reported apply to affected area topically every 8 hours as needed for yeast suprapubic ceja site and pannus Glycopyrrolate 1.5 Mg Tablet 1 Mg PO QID 06/12/19 Reported Tramadol Hcl 50 Mg Tablet 50 Mg PO Q6HRS PRN 09/30/18 Reported Tizanidine Hcl 4 Mg Tablet 6 Mg PO QID 09/30/18 Reported Senna (Sennosides) 8.6 Mg Tablet 8.6 Mg PO HS 09/30/18 Reported two tablets at bedtime, hold for loose stool Glycolax (Polyethylene Glycol 3350) 119 Gm Powder 17 Gm PO BID 09/30/18 Reported hold for loose stool Baclofen 20 Mg Tablet 1 Tab PO QID 09/30/18 Reported Aspir-Low (Aspirin) 81 Mg Tablet.dr 1 Tab PO DAILY 09/30/18 Reported Acetaminophen 500 Mg Tablet 1 Tab PO Q4HRS PRN 09/30/18 Reported Impression . IMPRESSION: 1. Acute hypoxic respiratory failure secondary to suspected COVID pneumonia. 2. Abnormal chest x-ray with left lower lobe consolidation suggesting COVID pneumonia. A superimposed bacterial pneumonia would also be in the differential diagnosis. 3. Leukocytosis. 4. History of underlying MS with neurogenic bladder and dementia. Plan . We will continue current support titrate FiO2 down 1. We will continue with present high flow oxygen 2. COVID-19 test positive 3. Continue broad-spectrum antibiotic. 4. continuePlaquenil. 5. We will monitor the response to treatment. 6. symptomatic treatment, of fever, cough and secretions 7. Prognosis poor BALTA LAGUERRE MD Jan 30, 2020 17:15
[2020-01-30] MEDS: AZITHROMYCIN 500 MG in IV NORMAL SALINE 250ML 250 ML IV SCH (17:31)
[2020-01-30 19:00] VITALS: BP 105/68
[2020-01-30] MEDS: SENNOSIDES 8.6 MG TABLET PO SCH (20:14)
[2020-01-30 23:00] VITALS: BP 80/52
[2020-01-30] MEDS ORDERED: SCOPOLAMINE 1.5MG PATCH. TD ONE (23:00)
[2020-01-30] MEDS ORDERED: MORPHINE SULFATE 2 MG/ML VIAL. IV PRN (23:00)
--- NOTE | 2020-01-30 23:40 | NUR ---
Patient's O2 saturation trending in low 80's and increased work of breathing noted while on 7L NC. Venti Mask applied w/ 5L O2 and no improvements noted. Blood pressure readings also low (88/53 and 80/52). MD notified regarding assessment changes and orders rcvd. Patient now on non-rebreather mask on 15L O2 and O2 saturations reading above 90%. Per patient's family request, family notified with status update. Patient in bed resting, will continue to monitor.
[2020-01-31 03:00] VITALS: BP 101/56
[2020-01-31 04:04] LABS: BASO % 0 % (0-3); EOS % 0 % (0-3); HEMATOCRIT 35.1 % (36.0-47.0); HEMOGLOBIN 11.5 g/dL (12.0-15.5); LYMPH # 1.1 x10^3/uL (1.0-4.8); LYMPH % 16 % (24-48); MEAN CORPUSCULAR HEMOGLOBIN 29 pg (25-35); MEAN CORPUSCULAR HGB CONC 33 g/dL (31-37); MEAN CORPUSCULAR VOLUME 87 fL (79-100); MONO # 0.2 x10^3/uL (0.0-1.1); MONO % 3 % (0-9); NEUT # 5.4 x10^3/uL (1.8-7.7); NEUT % 81 % (31-73); PLATELET COUNT 115 x10^3/uL (140-400); RED BLOOD COUNT 4.02 x10^6/uL (3.50-5.40); RED CELL DISTRIBUTION WIDTH 19.1 % (11.5-14.5); WHITE BLOOD COUNT 6.7 x10^3/uL (4.0-11.0)
[2020-01-31 04:34] LABS: ALBUMIN 1.6 g/dL (3.4-5.0); ALBUMIN/GLOBULIN RATIO 0.5 (1.0-1.7); CALCIUM 7.5 mg/dL (8.5-10.1); CREATININE 0.4 mg/dL (0.6-1.0); GFR 200.5; POTASSIUM 3.2 mmol/L (3.5-5.1); TOTAL BILIRUBIN 0.6 mg/dL (0.2-1.0); TOTAL PROTEIN 5.1 g/dL (6.4-8.2)
[2020-01-31] MEDS: ACETAMINOPHEN 500 MG TABLET PO PRN ×2 (04:44→09:19)
[2020-01-31] MEDS: MEROPENEM 500 MG in IV NORMAL SALINE 50ML 50 ML IV SCH ×3 (06:09→16:41)
[2020-01-31] MEDS: IV NORMAL SALINE 1000ML BAG 1,000 ML IV SCH ×2 (06:09→11:43)
[2020-01-31 07:00] VITALS: BP 103/59
[2020-01-31] MEDS ORDERED: POTASSIUM CHLORIDE 20 MEQ TABLET.ER. PO ONE (09:15)
[2020-01-31] MEDS: GLYCOPYRROLATE 1 MG TABLET PO SCH ×4 (09:18→21:00)
[2020-01-31] MEDS: ASPIRIN ENTERIC COATED 81 MG TABLET.DR. PO SCH (09:18)
[2020-01-31] MEDS: OXYBUTYNIN CHLORIDE 5 MG TABLET PEG SCH ×2 (09:18→21:00)
[2020-01-31] MEDS: HYDROXYCHLOROQUINE (PROGRAM) 200 MG TABLET PO SCH ×2 (09:18→21:00)
[2020-01-31] MEDS: POLYETHYLENE GLYCOL 3350 17 GM PACKET. PO SCH ×2 (09:19→21:00)
[2020-01-31] MEDS: CYCLOBENZAPRINE 10 MG TABLET. PO SCH ×3 (09:19→21:00)
[2020-01-31] MEDS: MORPHINE SULFATE 2 MG/ML VIAL. IV PRN ×5 (09:20→17:58)
--- NOTE | 2020-01-31 10:54 | PDOC ---
Infectious Disease Note Subjective: Subjective COVID-19 positive. Ongoing fevers cont to remain hypoxic Vital Signs: Vital Signs Vital Signs Date Time Temp Pulse Resp B/P (MAP) Pulse Ox O2 Delivery O2 Flow Rate FiO2 01/31/20 09:50 18 NonRebreather Mask 01/31/20 09:20 10.0 01/31/20 07:00 98.8 97 103/59 (74) 87 98.8 Physical Exam: PHYSICAL EXAM Visual see primary and pulm notes for details propped up in bed, eyes open, appears weak Breathing rapid and coarse Heart rhythm regular Medications: Inpatient Meds: Current Medications Medications (Trade) Dose Ordered Sig/Jayna Start Time Stop Time Status Last Admin Dose Admin Acetaminophen (Tylenol Supp) 650 mg PRN Q4HRS PRN 01/26/20 15:30 Acetaminophen (Tylenol) 500 mg PRN Q4HRS PRN 01/27/20 09:45 01/31/20 09:19 500 MG Albuterol/ Ipratropium (Duoneb) 3 ml PRN Q4HRS PRN 01/26/20 16:00 01/26/20 17:58 3 ML Aspirin (Ecotrin) 81 mg DAILY 01/27/20 10:00 01/31/20 09:18 81 MG Azithromycin 250 ml @ 250 mls/hr DAILY07 01/27/20 07:00 UNV Azithromycin 500 mg/Sodium Chloride 250 ml @ 250 mls/hr Q24H 01/27/20 12:00 01/30/20 12:59 DC 01/30/20 17:31 250 MLS/HR Clonidine HCl (Catapres) 0.1 mg PRN Q6HRS PRN 01/26/20 14:15 Cyclobenzaprine HCl (Flexeril) 10 mg TID 01/27/20 09:45 01/31/20 09:19 10 MG Dextrose (Dextrose 50%-Water Syringe) 12.5 gm PRN Q15MIN PRN 01/27/20 00:30 01/29/20 19:08 25 GM Diphenhydramine HCl (Benadryl) 25 mg PRN Q4HRS PRN 01/26/20 14:15 Docusate Sodium (Colace) 100 mg PRN BID PRN 01/26/20 14:15 Enoxaparin Sodium (Lovenox 40mg Syringe) 40 mg Q24H 01/26/20 15:30 UNV Glycopyrrolate (Robinul) 1 mg QID 01/27/20 10:00 01/31/20 09:18 1 MG Guaifenesin (Robitussin) 200 mg PRN Q4HRS PRN 01/26/20 14:15 Hydroxychloroquine Sulfate (Plaquenil (Med Program)) 200 mg BID 01/28/20 09:00 01/31/20 21:01 01/31/20 09:18 200 MG Hydroxychloroquine Sulfate (Plaquenil) 400 mg BID 01/27/20 11:00 01/27/20 21:01 Cancel Meropenem 500 mg/ Sodium Chloride 50 ml @ 100 mls/hr Q6HRS 01/27/20 18:00 01/31/20 06:09 100 MLS/HR Morphine Sulfate (Morphine Sulfate) 2 mg PRN Q2HR PRN 01/30/20 23:00 Nystatin (Mycostatin) 1 juni PRN Q8HRS PRN 01/27/20 10:30 Ondansetron HCl (Zofran Odt) 4 mg PRN Q6HRS PRN 01/27/20 09:45 Ondansetron HCl (Zofran) 4 mg PRN Q4HRS PRN 01/26/20 15:30 Oxybutynin Chloride (Ditropan) 5 mg BID 01/27/20 10:00 01/31/20 09:18 5 MG Piperacillin Sod/ Tazobactam Sod 3.375 gm/Sodium Chloride 50 ml @ 100 mls/hr Q6HRS 01/26/20 18:00 01/27/20 12:23 DC 01/27/20 11:47 100 MLS/HR Piperacillin Sod/ Tazobactam Sod 4.5 gm/Sodium Chloride 100 ml @ 200 mls/hr 1X ONCE 01/26/20 11:15 01/26/20 11:44 DC 01/26/20 13:19 200 MLS/HR Polyethylene Glycol (miraLAX PACKET) 17 gm BID 01/27/20 10:00 01/31/20 09:19 17 GM Potassium Chloride (Klor-Con) 40 meq 1X ONCE 01/31/20 09:15 01/31/20 09:16 DC 01/31/20 09:21 40 MEQ Scopolamine (Transderm-Scop) 1 patch 1X ONCE 01/30/20 23:00 01/30/20 23:01 DC 01/30/20 23:13 1 PATCH Sennosides (Senna) 8.6 mg HS 01/27/20 21:00 01/30/20 20:14 8.6 MG Sodium Monofluorophosphate (Fleet Adult) 133 ml PRN DAILY PRN 01/26/20 15:30 Sodium Chloride (Normal Saline Flush) 3 ml QSHIFT PRN 01/26/20 15:30 Tramadol HCl (Ultram) 50 mg PRN Q6HRS PRN 01/27/20 09:45 01/30/20 20:15 50 MG Triamcinolone Acetonide (Kenalog 0.1%) 1 juni PRN TID PRN 01/27/20 10:30 Labs: Lab Laboratory Tests Test 01/30/20 11:48 01/30/20 17:39 01/31/20 01:17 01/31/20 03:20 Glucose (Fingerstick) 93 mg/dL (70-99) 90 mg/dL (70-99) 122 mg/dL (70-99) White Blood Count 6.7 x10^3/uL (4.0-11.0) Red Blood Count 4.02 x10^6/uL (3.50-5.40) Hemoglobin 11.5 g/dL (12.0-15.5) Hematocrit 35.1 % (36.0-47.0) Mean Corpuscular Volume 87 fL (79-100) Mean Corpuscular Hemoglobin 29 pg (25-35) Mean Corpuscular Hemoglobin Concent 33 g/dL (31-37) Red Cell Distribution Width 19.1 % (11.5-14.5) Platelet Count 115 x10^3/uL (140-400) Neutrophils (%) (Auto) 81 % (31-73) Lymphocytes (%) (Auto) 16 % (24-48) Monocytes (%) (Auto) 3 % (0-9) Eosinophils (%) (Auto) 0 % (0-3) Basophils (%) (Auto) 0 % (0-3) Neutrophils # (Auto) 5.4 x10^3/uL (1.8-7.7) Lymphocytes # (Auto) 1.1 x10^3/uL (1.0-4.8) Monocytes # (Auto) 0.2 x10^3/uL (0.0-1.1) Eosinophils # (Auto) 0.0 x10^3/uL (0.0-0.7) Basophils # (Auto) 0.0 x10^3/uL (0.0-0.2) Sodium Level 145 mmol/L (136-145) Potassium Level 3.2 mmol/L (3.5-5.1) Chloride Level 111 mmol/L (98-107) Carbon Dioxide Level 25 mmol/L (21-32) Anion Gap 9 (6-14) Blood Urea Nitrogen 11 mg/dL (7-20) Creatinine 0.4 mg/dL (0.6-1.0) Estimated GFR (Cockcroft-Gault) 200.5 BUN/Creatinine Ratio 28 (6-20) Glucose Level 128 mg/dL (70-99) Calcium Level 7.5 mg/dL (8.5-10.1) Total Bilirubin 0.6 mg/dL (0.2-1.0) Aspartate Amino Transf (AST/SGOT) 111 U/L (15-37) Alanine Aminotransferase (ALT/SGPT) 72 U/L (14-59) Alkaline Phosphatase 78 U/L (46-116) Total Protein 5.1 g/dL (6.4-8.2) Albumin 1.6 g/dL (3.4-5.0) Albumin/Globulin Ratio 0.5 (1.0-1.7) Test 01/31/20 06:00 Glucose (Fingerstick) 130 mg/dL (70-99) Objective: Assessment: Acute SARS-CoV-2. Pneumonia Fever Leukocytosis resolved Lactic acidosis Advance MS Ulcer about SPT insertion site - no signs of infection Neurogenic bladder treated with suprapubic cath Dysphasia - tube feedings h/o Enterobacter and PSAE [facility] resident Plan: Plan of Care completed azithromycin on plaquenil Continue empiric meropenem Maintain aspiration precautions Local wound care Supportive care Airborne precautions bc neg so far Overall Poor prognosis team is discussing with family DNR D/w nursing ELIUD RUANO MD Jan 31, 2020 10:54
[2020-01-31 11:00] VITALS: BP 101/60
--- NOTE | 2020-01-31 11:05 | PDOC ---
PULMONARY PROGRESS NOTES Subjective Patient with significant respiratory distress, appears to have aspirated Vitals Vital Signs Date Time Temp Pulse Resp B/P (MAP) Pulse Ox O2 Delivery O2 Flow Rate FiO2 01/31/20 09:50 18 NonRebreather Mask 01/31/20 09:20 10.0 01/31/20 07:00 98.8 97 103/59 (74) 87 98.8 Comments non-verbal unable to obtain General: No acute distress HEENT: Other Lungs: Wheezing (course breath sounds with wheezing), Crackles, Other Cardiovascular: S1, S2 Abdomen: Soft, Non-tender Extremities: No Edema Skin: Warm Labs Laboratory Tests Test 01/29/20 11:44 01/29/20 18:24 01/29/20 19:15 01/30/20 00:46 Glucose (Fingerstick) 70 mg/dL (70-99) 39 mg/dL (70-99) 87 mg/dL (70-99) 97 mg/dL (70-99) Test 01/30/20 06:43 01/30/20 11:48 01/30/20 17:39 01/31/20 01:17 Glucose (Fingerstick) 80 mg/dL (70-99) 93 mg/dL (70-99) 90 mg/dL (70-99) 122 mg/dL (70-99) Test 01/31/20 03:20 01/31/20 06:00 White Blood Count 6.7 x10^3/uL (4.0-11.0) Red Blood Count 4.02 x10^6/uL (3.50-5.40) Hemoglobin 11.5 g/dL (12.0-15.5) Hematocrit 35.1 % (36.0-47.0) Mean Corpuscular Volume 87 fL (79-100) Mean Corpuscular Hemoglobin 29 pg (25-35) Mean Corpuscular Hemoglobin Concent 33 g/dL (31-37) Red Cell Distribution Width 19.1 % (11.5-14.5) Platelet Count 115 x10^3/uL (140-400) Neutrophils (%) (Auto) 81 % (31-73) Lymphocytes (%) (Auto) 16 % (24-48) Monocytes (%) (Auto) 3 % (0-9) Eosinophils (%) (Auto) 0 % (0-3) Basophils (%) (Auto) 0 % (0-3) Neutrophils # (Auto) 5.4 x10^3/uL (1.8-7.7) Lymphocytes # (Auto) 1.1 x10^3/uL (1.0-4.8) Monocytes # (Auto) 0.2 x10^3/uL (0.0-1.1) Eosinophils # (Auto) 0.0 x10^3/uL (0.0-0.7) Basophils # (Auto) 0.0 x10^3/uL (0.0-0.2) Sodium Level 145 mmol/L (136-145) Potassium Level 3.2 mmol/L (3.5-5.1) Chloride Level 111 mmol/L (98-107) Carbon Dioxide Level 25 mmol/L (21-32) Anion Gap 9 (6-14) Blood Urea Nitrogen 11 mg/dL (7-20) Creatinine 0.4 mg/dL (0.6-1.0) Estimated GFR (Cockcroft-Gault) 200.5 BUN/Creatinine Ratio 28 (6-20) Glucose Level 128 mg/dL (70-99) Calcium Level 7.5 mg/dL (8.5-10.1) Total Bilirubin 0.6 mg/dL (0.2-1.0) Aspartate Amino Transf (AST/SGOT) 111 U/L (15-37) Alanine Aminotransferase (ALT/SGPT) 72 U/L (14-59) Alkaline Phosphatase 78 U/L (46-116) Total Protein 5.1 g/dL (6.4-8.2) Albumin 1.6 g/dL (3.4-5.0) Albumin/Globulin Ratio 0.5 (1.0-1.7) Glucose (Fingerstick) 130 mg/dL (70-99) Laboratory Tests Test 01/30/20 11:48 01/30/20 17:39 01/31/20 01:17 01/31/20 03:20 Glucose (Fingerstick) 93 mg/dL (70-99) 90 mg/dL (70-99) 122 mg/dL (70-99) White Blood Count 6.7 x10^3/uL (4.0-11.0) Red Blood Count 4.02 x10^6/uL (3.50-5.40) Hemoglobin 11.5 g/dL (12.0-15.5) Hematocrit 35.1 % (36.0-47.0) Mean Corpuscular Volume 87 fL (79-100) Mean Corpuscular Hemoglobin 29 pg (25-35) Mean Corpuscular Hemoglobin Concent 33 g/dL (31-37) Red Cell Distribution Width 19.1 % (11.5-14.5) Platelet Count 115 x10^3/uL (140-400) Neutrophils (%) (Auto) 81 % (31-73) Lymphocytes (%) (Auto) 16 % (24-48) Monocytes (%) (Auto) 3 % (0-9) Eosinophils (%) (Auto) 0 % (0-3) Basophils (%) (Auto) 0 % (0-3) Neutrophils # (Auto) 5.4 x10^3/uL (1.8-7.7) Lymphocytes # (Auto) 1.1 x10^3/uL (1.0-4.8) Monocytes # (Auto) 0.2 x10^3/uL (0.0-1.1) Eosinophils # (Auto) 0.0 x10^3/uL (0.0-0.7) Basophils # (Auto) 0.0 x10^3/uL (0.0-0.2) Sodium Level 145 mmol/L (136-145) Potassium Level 3.2 mmol/L (3.5-5.1) Chloride Level 111 mmol/L (98-107) Carbon Dioxide Level 25 mmol/L (21-32) Anion Gap 9 (6-14) Blood Urea Nitrogen 11 mg/dL (7-20) Creatinine 0.4 mg/dL (0.6-1.0) Estimated GFR (Cockcroft-Gault) 200.5 BUN/Creatinine Ratio 28 (6-20) Glucose Level 128 mg/dL (70-99) Calcium Level 7.5 mg/dL (8.5-10.1) Total Bilirubin 0.6 mg/dL (0.2-1.0) Aspartate Amino Transf (AST/SGOT) 111 U/L (15-37) Alanine Aminotransferase (ALT/SGPT) 72 U/L (14-59) Alkaline Phosphatase 78 U/L (46-116) Total Protein 5.1 g/dL (6.4-8.2) Albumin 1.6 g/dL (3.4-5.0) Albumin/Globulin Ratio 0.5 (1.0-1.7) Test 01/31/20 06:00 Glucose (Fingerstick) 130 mg/dL (70-99) Medications Active Scripts Medications Dose Route/Sig Max Daily Dose Days Date Category Dose Instructions Zofran (Ondansetron Hcl) 4 Mg Tablet 1 Tab PEG Q6HRS PRN 06/12/19 Reported Oxybutynin Chloride 5 Mg Tablet 5 Mg PEG BID 06/12/19 Reported Nystatin-Triamcinolone Cream (Nystatin/Triamcin) 15 Gm Cream..g. 1 Sis TP Q8H PRN 06/12/19 Reported apply to affected area topically every 8 hours as needed for yeast suprapubic ceja site and pannus Glycopyrrolate 1.5 Mg Tablet 1 Mg PO QID 06/12/19 Reported Tramadol Hcl 50 Mg Tablet 50 Mg PO Q6HRS PRN 09/30/18 Reported Tizanidine Hcl 4 Mg Tablet 6 Mg PO QID 09/30/18 Reported Senna (Sennosides) 8.6 Mg Tablet 8.6 Mg PO HS 09/30/18 Reported two tablets at bedtime, hold for loose stool Glycolax (Polyethylene Glycol 3350) 119 Gm Powder 17 Gm PO BID 09/30/18 Reported hold for loose stool Baclofen 20 Mg Tablet 1 Tab PO QID 09/30/18 Reported Aspir-Low (Aspirin) 81 Mg Tablet.dr 1 Tab PO DAILY 09/30/18 Reported Acetaminophen 500 Mg Tablet 1 Tab PO Q4HRS PRN 09/30/18 Reported Impression . IMPRESSION: 1. Acute hypoxic respiratory failure secondary to suspected COVID pneumonia. 2. Abnormal chest x-ray with left lower lobe consolidation suggesting COVID pneumonia. A superimposed bacterial pneumonia would also be in the differential diagnosis. 3. Leukocytosis. 4. History of underlying MS with neurogenic bladder and dementia. 5. Aspiration pneumonia Plan . Patient significantly deteriorating, she is a DO NOT RESUSCITATE DO NOT INTUBATE. Discussed case with nursing staff, will provide comfort measures, morphine drip. 1. We will continue with present high flow oxygen 2. COVID-19 test positive 3. Continue broad-spectrum antibiotic. 4. continuePlaquenil. 5. We will monitor the response to treatment. 6. symptomatic treatment, of fever, cough and secretions 7. Prognosis poor BALTA LAGUERRE MD Jan 31, 2020 11:05
--- NOTE | 2020-01-31 11:45 | PDOC ---
[employer] [facility] PROGRESS NOTE Chief Complaint Chief Complaint Left basilar pneumonia - started on broad spectrum antibiotics, cultures obtained. covid -19 POSITIVE SEPSIS Transaminitis Advanced multiple sclerosis - bedbound, with contractures Anemia Constipation Dementia Neurogentic bladder - s/p suprapubic catheter Vit D def Dysphagia - maintained on g-tube feedings H/o multiple MDRO pneumonia and UTI infections COVID-19 CRITERIA: The patient was evaluated during the global COVID-19 pandemic, and that diagnosis was suspected/considered upon their initial presentation. Their evaluation, treatment and testing were consistent with current guidelines for patients who present with complaints or symptoms that may be related to COVID-19 History of Present Illness History of Present Illness 01-31-2020 Patient seen and examined in the respiratory isolation unit She is Covid-19 positive Critically ill Very weak on 100% nonrebreather Chart reviewed Discussed with RN 01-30-2020 Patient seen and examined on the Covid-19 unit She is in respiratory isolation Very sick with labored coarse breath sounds Poor long-term prognosis as she has advanced multiple sclerosis as well Chart reviewed Discussed with RN [id number] Patient seen and examined He has very coarse breath sounds even at the bedside without a prescription Chart reviewed Discussed with RN She is very ill Ms Brandie is a 54yo F [facility] resident w/ PMHx advanced multiple sclerosis, Anemia, C onstipation, Dementia, neurogentic bladder, vit D def, ataxia, dysphagia, multiple MDRO pneumonia and UTI infections, bedbound, with contractures and maintained on g-tube feedings and suprapubic catheter who was brought to ED due to observed shortness of breath and exposure to SARS-CoV-2 positive patient. WBC elevated 13.7, Temp 103.5F and transaminases AST 50, ALT 71 as well as lactate 2.2 and hypoxic requiring 8L NCO2. Found on CXR with left basilar pneumonia, admitted for further care. 01/26: Not verbally responsive. Does not appear in distress. Labs improved. O2 improved. COVID19 positive Hypoglycemic to 46 overnight, corrected. J-tube feeds had not been initiated. Vitals/I&O Vitals/I&O: Vital Signs Date Time Temp Pulse Resp B/P (MAP) Pulse Ox O2 Delivery O2 Flow Rate FiO2 01/31/20 09:50 18 NonRebreather Mask 01/31/20 09:20 10.0 4/8/20 07:00 98.8 97 103/59 (74) 87 98.8 I & O 01/30/20 01/30/20 01/31/20 15:00 23:00 07:00 Intake Total 150 ml 1535 ml 450 ml Output Total 0 ml 1100 ml Balance 150 ml 1535 ml -650 ml Physical Exam Physical Exam: General: Cooperative, moderate distress Heart: Regular rate, Normal S1 Lungs: Wheezing (course breath sounds with wheezing), Crackles, Other Abdomen: Normal bowel sounds Extremities: No cyanosis Labs Labs: Laboratory Tests Test 01/30/20 11:48 01/30/20 17:39 01/31/20 01:17 01/31/20 03:20 Glucose (Fingerstick) 93 mg/dL (70-99) 90 mg/dL (70-99) 122 mg/dL (70-99) White Blood Count 6.7 x10^3/uL (4.0-11.0) Red Blood Count 4.02 x10^6/uL (3.50-5.40) Hemoglobin 11.5 g/dL (12.0-15.5) Hematocrit 35.1 % (36.0-47.0) Mean Corpuscular Volume 87 fL (79-100) Mean Corpuscular Hemoglobin 29 pg (25-35) Mean Corpuscular Hemoglobin Concent 33 g/dL (31-37) Red Cell Distribution Width 19.1 % (11.5-14.5) Platelet Count 115 x10^3/uL (140-400) Neutrophils (%) (Auto) 81 % (31-73) Lymphocytes (%) (Auto) 16 % (24-48) Monocytes (%) (Auto) 3 % (0-9) Eosinophils (%) (Auto) 0 % (0-3) Basophils (%) (Auto) 0 % (0-3) Neutrophils # (Auto) 5.4 x10^3/uL (1.8-7.7) Lymphocytes # (Auto) 1.1 x10^3/uL (1.0-4.8) Monocytes # (Auto) 0.2 x10^3/uL (0.0-1.1) Eosinophils # (Auto) 0.0 x10^3/uL (0.0-0.7) Basophils # (Auto) 0.0 x10^3/uL (0.0-0.2) Sodium Level 145 mmol/L (136-145) Potassium Level 3.2 mmol/L (3.5-5.1) Chloride Level 111 mmol/L (98-107) Carbon Dioxide Level 25 mmol/L (21-32) Anion Gap 9 (6-14) Blood Urea Nitrogen 11 mg/dL (7-20) Creatinine 0.4 mg/dL (0.6-1.0) Estimated GFR (Cockcroft-Gault) 200.5 BUN/Creatinine Ratio 28 (6-20) Glucose Level 128 mg/dL (70-99) Calcium Level 7.5 mg/dL (8.5-10.1) Total Bilirubin 0.6 mg/dL (0.2-1.0) Aspartate Amino Transf (AST/SGOT) 111 U/L (15-37) Alanine Aminotransferase (ALT/SGPT) 72 U/L (14-59) Alkaline Phosphatase 78 U/L (46-116) Total Protein 5.1 g/dL (6.4-8.2) Albumin 1.6 g/dL (3.4-5.0) Albumin/Globulin Ratio 0.5 (1.0-1.7) Test 01/31/20 06:00 Glucose (Fingerstick) 130 mg/dL (70-99) Assessment and Plan Assessmemt and Plan Problems Medical Problems: (1) Fever Status: Acute (2) Left lower lobe pneumonia Status: Acute (3) Respiratory failure Status: Acute (4) Sepsis Status: Acute Acute left basilar pneumonia - started on broad spectrum antibiotics, cultures obtained. covid -19 POSITIVE SEPSIS Transaminitis Advanced multiple sclerosis - bedbound, with contractures Anemia Constipation Dementia Neurogentic bladder - s/p suprapubic catheter Vit D def Dysphagia - maintained on g-tube feedings H/o multiple MDRO pneumonia and UTI infections COVID-19 CRITERIA: The patient was evaluated during the global COVID-19 pandemic, and that diagnosis was suspected/considered upon their initial presentation. Their evaluation, treatment and testing were consistent with current guidelines for patients who present with complaints or symptoms that may be related to COVID-19 Acute hypoxic respiratory failure secondary to suspected COVID pneumonia. Abnormal chest x-ray with left lower lobe consolidation suggesting COVID pneumonia. A superimposed bacterial pneumonia would also be in the differential diagnosis. Leukocytosis. History of underlying MS with neurogenic bladder and dementia Plan IV antibiotics Duo nebs Home meds DVT prophylaxis DNR Appreciate subspecialist input We will continue with present high flow oxygen, currently on 8 liters N/C COVID-19 test positive Continue broad-spectrum antibiotic. ContinuePlaquenil. We will monitor the response to treatment. Symptomatic treatment, of fever, cough and secretions Prognosis poor COVID-19 CRITERIA: The patient was evaluated during the global COVID-19 pandemic, and that diagnosis was suspected/considered upon their initial presentation. Their evaluation, treatment and testing was consistent with current guidelines for patients who present with complaints or symptoms that may be related to COVID-19. Total time 34 minutes Comment Review of Relevant I have reviewed the following items jey (where applicable) has been applied. Medications: Current Medications Medications (Trade) Dose Ordered Sig/Jayna Route PRN Reason Start Time Stop Time Status Last Admin Dose Admin Morphine Sulfate (Morphine Sulfate) 2 mg PRN Q2HR PRN IV PAIN 01/30/20 14:30 01/31/20 09:20 Scopolamine (Transderm-Scop) 1 patch 1X ONCE TD 01/30/20 23:00 01/30/20 23:01 DC 01/30/20 23:13 Potassium Chloride (Klor-Con) 40 meq 1X ONCE PO 01/31/20 09:15 01/31/20 09:16 DC 01/31/20 09:21 LONDON VINES III DO Jan 31, 2020 11:45
--- NOTE | 2020-01-31 14:05 | NUR ---
Patients condition continues to decline. I spoke to her mother, daughter, sister and brother. Everyone was able to speak to her by phone. We did offer for one person to come see her but that offer was declined and we did phone conversations instead. She has received 2 doses of IV morphine for increased respirations and medication has been effective. Her heart rate had been in the 80s but now 110-120. Oxygen sat in 70s. Pt appears comfortable at this time. Continues on nonrebreather. Family has been updated throughout the shift.
[2020-01-31 14:57] VITALS: BP 134/87
[2020-01-31] MEDS: ENOXAPARIN 40 MG/0.4 ML SYRINGE. SQ SCH (16:38)
[2020-01-31] MEDS ORDERED: IV NORMAL SALINE 1000ML BAG 1,000 ML IV SCH ×2 (17:12→18:22)
[2020-01-31] MEDS ORDERED: NALOXONE 0.4 MG/ML VIAL. IV PRN ×2 (17:15→18:30)
[2020-01-31] MEDS: MORPHINE SULFATE/PF 30 ML IV PRN (18:56)
[2020-01-31 19:00] VITALS: BP 100/65
[2020-01-31] MEDS: SENNOSIDES 8.6 MG TABLET PO SCH (21:00)
--- NOTE | 2020-01-31 21:10 | NUR ---
Discussion with Dr. Perez and decision was made by MD to stop administration of schedule medication after placement of LIQUEFIED NATURAL GAS OPERATOR for comfort measures. All 2100 medications non-administered on eMAR. Patient resting in bed, will continue to monitor.
[2020-01-31 23:00] VITALS: BP 85/58
--- NOTE | 2020-02-01 00:05 | NUR ---
Per MORTGAGE LOAN INTERVIEWER order protocol, patient MORTGAGE LOAN INTERVIEWER pump rate increased to 3mg/hr due to noted increase in respirations at this time. Patient remains asleep, will continue to monitor.
[2020-02-01] MEDS: MEROPENEM 500 MG in IV NORMAL SALINE 50ML 50 ML IV SCH ×4 (01:53→05:53)
[2020-02-01 03:30] VITALS: BP 70/49
[2020-02-01] MEDS: MORPHINE SULFATE/PF 30 ML IV PRN (06:05)
[2020-02-01 07:00] VITALS: BP 59/44
--- NOTE | 2020-02-01 09:49 | PDOC ---
Infectious Disease Note Subjective: Subjective COVID-19 positive. Ongoing fevers ,hypotensive, tachycardic in resp distress on NRB Vital Signs: Vital Signs Vital Signs Date Time Temp Pulse Resp B/P (MAP) Pulse Ox O2 Delivery O2 Flow Rate FiO2 02/01/20 07:05 55 NonRebreather Mask 15.0 02/01/20 07:00 102.2 124 24 59/44 (49) 102.2 Physical Exam: PHYSICAL EXAM visual see primary and pulm notes for details in resp distress on NRB gasping tachy Medications: Inpatient Meds: Current Medications Medications (Trade) Dose Ordered Sig/Jayna Start Time Stop Time Status Last Admin Dose Admin Acetaminophen (Tylenol Supp) 650 mg PRN Q4HRS PRN 01/26/20 15:30 Acetaminophen (Tylenol) 500 mg PRN Q4HRS PRN 01/27/20 09:45 01/31/20 09:19 500 MG Albuterol/ Ipratropium (Duoneb) 3 ml PRN Q4HRS PRN 01/26/20 16:00 01/26/20 17:58 3 ML Aspirin (Ecotrin) 81 mg DAILY 01/27/20 10:00 01/31/20 09:18 81 MG Azithromycin 250 ml @ 250 mls/hr DAILY07 01/27/20 07:00 UNV Azithromycin 500 mg/Sodium Chloride 250 ml @ 250 mls/hr Q24H 01/27/20 12:00 01/30/20 12:59 DC 01/30/20 17:31 250 MLS/HR Clonidine HCl (Catapres) 0.1 mg PRN Q6HRS PRN 01/26/20 14:15 Cyclobenzaprine HCl (Flexeril) 10 mg TID 01/27/20 09:45 01/31/20 13:18 10 MG Dextrose (Dextrose 50%-Water Syringe) 12.5 gm PRN Q15MIN PRN 01/27/20 00:30 01/29/20 19:08 25 GM Diphenhydramine HCl (Benadryl) 25 mg PRN Q4HRS PRN 01/26/20 14:15 Docusate Sodium (Colace) 100 mg PRN BID PRN 01/26/20 14:15 Enoxaparin Sodium (Lovenox 40mg Syringe) 40 mg Q24H 01/26/20 15:30 UNV Glycopyrrolate (Robinul) 1 mg QID 01/27/20 10:00 01/31/20 16:38 1 MG Guaifenesin (Robitussin) 200 mg PRN Q4HRS PRN 01/26/20 14:15 Hydroxychloroquine Sulfate (Plaquenil (Med Program)) 200 mg BID 01/28/20 09:00 01/31/20 21:01 DC 01/31/20 09:18 200 MG Hydroxychloroquine Sulfate (Plaquenil) 400 mg BID 01/27/20 11:00 01/27/20 21:01 Cancel Meropenem 500 mg/ Sodium Chloride 50 ml @ 100 mls/hr Q6HRS 01/27/20 18:00 02/01/20 05:53 100 MLS/HR Morphine Sulfate 30 ml @ 0 mls/hr CONT PRN PRN 01/31/20 18:30 02/01/20 06:05 3 MLS/HR Morphine Sulfate (Morphine Sulfate) 2 mg PRN Q1HR PRN 01/31/20 15:45 01/31/20 17:58 2 MG Naloxone HCl (Narcan) 0.4 mg PRN Q2MIN PRN 01/31/20 18:30 Nystatin (Mycostatin) 1 juni PRN Q8HRS PRN 01/27/20 10:30 Ondansetron HCl (Zofran Odt) 4 mg PRN Q6HRS PRN 01/27/20 09:45 Ondansetron HCl (Zofran) 4 mg PRN Q4HRS PRN 01/26/20 15:30 Oxybutynin Chloride (Ditropan) 5 mg BID 01/27/20 10:00 01/31/20 09:18 5 MG Piperacillin Sod/ Tazobactam Sod 3.375 gm/Sodium Chloride 50 ml @ 100 mls/hr Q6HRS 01/26/20 18:00 01/27/20 12:23 DC 01/27/20 11:47 100 MLS/HR Piperacillin Sod/ Tazobactam Sod 4.5 gm/Sodium Chloride 100 ml @ 200 mls/hr 1X ONCE 01/26/20 11:15 01/26/20 11:44 DC 01/26/20 13:19 200 MLS/HR Polyethylene Glycol (miraLAX PACKET) 17 gm BID 01/27/20 10:00 01/31/20 09:19 17 GM Potassium Chloride (Klor-Con) 40 meq 1X ONCE 01/31/20 09:15 01/31/20 09:16 DC 01/31/20 09:21 40 MEQ Scopolamine (Transderm-Scop) 1 patch 1X ONCE 01/30/20 23:00 01/30/20 23:01 DC 01/30/20 23:13 1 PATCH Sennosides (Senna) 8.6 mg HS 01/27/20 21:00 01/30/20 20:14 8.6 MG Sodium Monofluorophosphate (Fleet Adult) 133 ml PRN DAILY PRN 01/26/20 15:30 Sodium Chloride 1,000 ml @ 25 mls/hr Q24H 01/31/20 18:22 Sodium Chloride (Normal Saline Flush) 3 ml QSHIFT PRN 01/26/20 15:30 Tramadol HCl (Ultram) 50 mg PRN Q6HRS PRN 01/27/20 09:45 01/30/20 20:15 50 MG Triamcinolone Acetonide (Kenalog 0.1%) 1 juni PRN TID PRN 01/27/20 10:30 Objective: Assessment: Acute SARS-CoV-2. Pneumonia Fever Leukocytosis resolved Lactic acidosis Advance MS Ulcer about SPT insertion site - no signs of infection Neurogenic bladder treated with suprapubic cath Dysphasia - tube feedings h/o Enterobacter and PSAE residential resident Plan: Plan of Care completed azithromycin and plaquenil Continue empiric meropenem Maintain aspiration precautions Local wound care Supportive care Airborne precautions bc neg so far Prognosis grim D/w nursing ELIUD RUANO MD Feb 01, 2020 09:48
--- NOTE | 2020-02-01 10:09 | PDOC ---
PULMONARY PROGRESS NOTES Subjective Patient on the 100% nonrebreather, expected to succumb to her illness Vitals Vital Signs Date Time Temp Pulse Resp B/P (MAP) Pulse Ox O2 Delivery O2 Flow Rate FiO2 02/01/20 07:05 55 NonRebreather Mask 15.0 02/01/20 07:00 102.2 124 24 59/44 (49) 102.2 Comments non-verbal unable to obtain General: No acute distress HEENT: Other Lungs: Wheezing (course breath sounds with wheezing), Crackles, Other Cardiovascular: S1, S2 Abdomen: Soft, Non-tender Extremities: No Edema Skin: Warm Labs Laboratory Tests Test 01/30/20 11:48 01/30/20 17:39 01/31/20 01:17 01/31/20 03:20 Glucose (Fingerstick) 93 mg/dL (70-99) 90 mg/dL (70-99) 122 mg/dL (70-99) White Blood Count 6.7 x10^3/uL (4.0-11.0) Red Blood Count 4.02 x10^6/uL (3.50-5.40) Hemoglobin 11.5 g/dL (12.0-15.5) Hematocrit 35.1 % (36.0-47.0) Mean Corpuscular Volume 87 fL (79-100) Mean Corpuscular Hemoglobin 29 pg (25-35) Mean Corpuscular Hemoglobin Concent 33 g/dL (31-37) Red Cell Distribution Width 19.1 % (11.5-14.5) Platelet Count 115 x10^3/uL (140-400) Neutrophils (%) (Auto) 81 % (31-73) Lymphocytes (%) (Auto) 16 % (24-48) Monocytes (%) (Auto) 3 % (0-9) Eosinophils (%) (Auto) 0 % (0-3) Basophils (%) (Auto) 0 % (0-3) Neutrophils # (Auto) 5.4 x10^3/uL (1.8-7.7) Lymphocytes # (Auto) 1.1 x10^3/uL (1.0-4.8) Monocytes # (Auto) 0.2 x10^3/uL (0.0-1.1) Eosinophils # (Auto) 0.0 x10^3/uL (0.0-0.7) Basophils # (Auto) 0.0 x10^3/uL (0.0-0.2) Sodium Level 145 mmol/L (136-145) Potassium Level 3.2 mmol/L (3.5-5.1) Chloride Level 111 mmol/L (98-107) Carbon Dioxide Level 25 mmol/L (21-32) Anion Gap 9 (6-14) Blood Urea Nitrogen 11 mg/dL (7-20) Creatinine 0.4 mg/dL (0.6-1.0) Estimated GFR (Cockcroft-Gault) 200.5 BUN/Creatinine Ratio 28 (6-20) Glucose Level 128 mg/dL (70-99) Calcium Level 7.5 mg/dL (8.5-10.1) Total Bilirubin 0.6 mg/dL (0.2-1.0) Aspartate Amino Transf (AST/SGOT) 111 U/L (15-37) Alanine Aminotransferase (ALT/SGPT) 72 U/L (14-59) Alkaline Phosphatase 78 U/L (46-116) Total Protein 5.1 g/dL (6.4-8.2) Albumin 1.6 g/dL (3.4-5.0) Albumin/Globulin Ratio 0.5 (1.0-1.7) Test 01/31/20 06:00 Glucose (Fingerstick) 130 mg/dL (70-99) Medications Active Scripts Medications Dose Route/Sig Max Daily Dose Days Date Category Dose Instructions Zofran (Ondansetron Hcl) 4 Mg Tablet 1 Tab PEG Q6HRS PRN 06/12/19 Reported Oxybutynin Chloride 5 Mg Tablet 5 Mg PEG BID 06/12/19 Reported Nystatin-Triamcinolone Cream (Nystatin/Triamcin) 15 Gm Cream..g. 1 Sis TP Q8H PRN 06/12/19 Reported apply to affected area topically every 8 hours as needed for yeast suprapubic ceja site and pannus Glycopyrrolate 1.5 Mg Tablet 1 Mg PO QID 06/12/19 Reported Tramadol Hcl 50 Mg Tablet 50 Mg PO Q6HRS PRN 09/30/18 Reported Tizanidine Hcl 4 Mg Tablet 6 Mg PO QID 09/30/18 Reported Senna (Sennosides) 8.6 Mg Tablet 8.6 Mg PO HS 12/7/18 Reported two tablets at bedtime, hold for loose stool Glycolax (Polyethylene Glycol 3350) 119 Gm Powder 17 Gm PO BID 09/30/18 Reported hold for loose stool Baclofen 20 Mg Tablet 1 Tab PO QID 09/30/18 Reported Aspir-Low (Aspirin) 81 Mg Tablet.dr 1 Tab PO DAILY 09/30/18 Reported Acetaminophen 500 Mg Tablet 1 Tab PO Q4HRS PRN 09/30/18 Reported Impression . IMPRESSION: 1. Acute hypoxic respiratory failure secondary to suspected COVID pneumonia. 2. Abnormal chest x-ray with left lower lobe consolidation suggesting COVID pneumonia. A superimposed bacterial pneumonia would also be in the differential diagnosis. 3. Leukocytosis. 4. History of underlying MS with neurogenic bladder and dementia. 5. Aspiration pneumonia Plan . Patient significantly deteriorating, she is a DO NOT RESUSCITATE DO NOT INTUBATE. Patient expected to today, continue comfort care COVID-19 CRITERIA: The patient was evaluated during the global COVID-19 pandemic, and that diagnosis was suspected/considered upon their initial presentation. Their evaluation, treatment and testing were consistent with current guidelines for patients who present with complaints or symptoms that may be related to COVID-19 BALTA LAGUERRE MD Feb 01, 2020 10:09
--- NOTE | 2020-02-01 11:41 | PDOC ---
[facility] PROGRESS NOTE Chief Complaint Chief Complaint Left basilar pneumonia - started on broad spectrum antibiotics, cultures obtained. covid -19 POSITIVE SEPSIS Transaminitis Advanced multiple sclerosis - bedbound, with contractures Anemia Constipation Dementia Neurogentic bladder - s/p suprapubic catheter Vit D def Dysphagia - maintained on g-tube feedings H/o multiple MDRO pneumonia and UTI infections COVID-19 CRITERIA: The patient was evaluated during the global COVID-19 pandemic, and that diagnosis was suspected/considered upon their initial presentation. Their evaluation, treatment and testing were consistent with current guidelines for patients who present with complaints or symptoms that may be related to COVID-19 History of Present Illness History of Present Illness 02-01-2020 Patient seen on the Covid-19 unit In severe respiratory distress Has a 100% nonrebreather on Chart reviewed Discussed with RN 01-31-2020 Patient seen and examined in the respiratory isolation unit She is Covid-19 positive Critically ill Very weak on 100% nonrebreather Chart reviewed Discussed with RN 01-30-2020 Patient seen and examined on the Covid-19 unit She is in respiratory isolation Very sick with labored coarse breath sounds Poor long-term prognosis as she has advanced multiple sclerosis as well Chart reviewed Discussed with RN [id number] Patient seen and examined He has very coarse breath sounds even at the bedside without a prescription Chart reviewed Discussed with RN She is very ill Ms Diego is a 54yo F [facility] resident w/ PMHx advanced multiple sclerosis, Anemia, Constipation, Dementia, neurogentic bladder, vit D def, ataxia, dysphagia, multiple MDRO pneumonia and UTI infections, bedbound, with contractures and maintained on g-tube feedings and suprapubic catheter who was brought to ED due to observed shortness of breath and exposure to SARS-CoV-2 positive patient. WBC elevated 13.7, Temp 103.5F and transaminases AST 50, ALT 71 as well as lactate 2.2 and hypoxic requiring 8L NCO2. Found on CXR with left basilar pneumonia, admitted for further care. 01/26: Not verbally responsive. Does not appear in distress. Labs improved. O2 improved. COVID19 positive Hypoglycemic to 46 overnight, corrected. J-tube feeds had not been initiated. Vitals/I&O Vitals/I&O: Vital Signs Date Time Temp Pulse Resp B/P (MAP) Pulse Ox O2 Delivery O2 Flow Rate FiO2 02/01/20 07:05 55 NonRebreather Mask 15.0 02/01/20 07:00 102.2 124 24 59/44 (49) 102.2 I & O 01/31/20 01/31/20 02/01/20 15:00 23:00 07:00 Intake Total 150 ml 150 ml 28.2 ml Output Total 200 ml 500 ml 100 ml Balance -50 ml -350 ml -71.8 ml Physical Exam Physical Exam: visual see primary and pulm notes for details in resp distress on NRB gasping tachy General: Cooperative, moderate distress Heart: Regular rate, Normal S1 Lungs: Wheezing (course breath sounds with wheezing), Crackles, Other Abdomen: Normal bowel sounds Extremities: No cyanosis Assessment and Plan Assessmemt and Plan Problems Medical Problems: (1) Fever Status: Acute (2) Left lower lobe pneumonia Status: Acute (3) Respiratory failure Status: Acute (4) Sepsis Status: Acute Acute left basilar pneumonia - started on broad spectrum antibiotics, cultures obtained. covid -19 POSITIVE SEPSIS Transaminitis Advanced multiple sclerosis - bedbound, with contractures Anemia Constipation Dementia Neurogentic bladder - s/p suprapubic catheter Vit D def Dysphagia - maintained on g-tube feedings H/o multiple MDRO pneumonia and UTI infections COVID-19 CRITERIA: The patient was evaluated during the global COVID-19 pandemic, and that diagnosis was suspected/considered upon their initial presentation. Their evaluation, treatment and testing were consistent with current guidelines for patients who present with complaints or symptoms that may be related to COVID-19 Acute hypoxic respiratory failure secondary to suspected COVID pneumonia. Abnormal chest x-ray with left lower lobe consolidation suggesting COVID pneumonia. A superimposed bacterial pneumonia would also be in the differential diagnosis. Leukocytosis. History of underlying MS with neurogenic bladder and dementia Plan Comfort care Comment Review of Relevant I have reviewed the following items jey (where applicable) has been applied. Medications: Current Medications Medications (Trade) Dose Ordered Sig/Jayna Route PRN Reason Start Time Stop Time Status Last Admin Dose Admin Morphine Sulfate (Morphine Sulfate) 2 mg PRN Q1HR PRN IV PRN AIR HUNGER 01/31/20 15:45 01/31/20 17:58 Sodium Chloride 1,000 ml @ 25 mls/hr Q24H IV 01/31/20 17:12 01/31/20 17:12 Morphine Sulfate 30 ml @ 0 mls/hr CONT PRN PRN IV PER PROTOCOL 01/31/20 18:30 02/01/20 06:05 LONDON VINES III DO Feb 01, 2020 11:41
--- NOTE | 2020-02-01 12:35 | NUR ---
At approximately 1055 patients monitor and storage bin tender alarmed for a low heart rate. This RN rushed into room and could not feel a pulse or hear any breath sounds. A second RN, Jennifer, came to witness. Patient at approximately 1058.
[2020-02-02] MEDS ORDERED: SCOPOLAMINE 1.5MG PATCH. TD SCH (09:00)
== END 2020-02-01 10:58 | disposition expired | DRG 871 ==
LOC: ER 10:31 → ED HOLD 13:57 → 1 WEST ICU 14:51 → 6 SOUTH 15:20
PROVIDERS: ADMIT Family Medicine; ATTEND Family Medicine
DX: A41.9 Sepsis, unspecified organism (principal); U07.1 COVID-19; J12.89 Other viral pneumonia; J96.01 Acute respiratory failure with hypoxia; D64.9 Anemia, unspecified; E16.2 Hypoglycemia, unspecified; E55.9 Vitamin D deficiency, unspecified; F03.90 Unspecified dementia, unspecified severity, without behavioral disturbance, psychotic disturbance, mood disturbance, and anxiety; G35 Multiple sclerosis; K59.00 Constipation, unspecified; R13.10 Dysphagia, unspecified; R47.02 Dysphasia; Z74.01 Bed confinement status; Z78.9 Other specified health status; Z82.49 Family history of ischemic heart disease and other diseases of the circulatory system; Z87.01 Personal history of pneumonia (recurrent); Z93.1 Gastrostomy status; Z98.891 History of uterine scar from previous surgery; K21.9 Gastro-esophageal reflux disease without esophagitis; Z87.440 Personal history of urinary (tract) infections; R27.0 Ataxia, unspecified; I95.9 Hypotension, unspecified; Z88.5 Allergy status to narcotic agent; Z66 Do not resuscitate; N31.9 Neuromuscular dysfunction of bladder, unspecified
CPT/HCPCS: 36415; 36569; 71045; 80048; 80053; 81001; 82553; 82962; 83605; 84145; 85007; 85025; 87040; 93005; 94640; 96365; 96367; 99285; J0456; J1650; J2185; J2270; J2543; J7030; J7042; J7050; G0378